=== PATIENT | female | born 1945 | race Caucasian/White ===

== ENCOUNTER 2017-10-28 17:37 | Emergency (ER) | payer OTHER ==
[2017-10-28] MEDS ORDERED: HYDROCODONE/CHLORPHEN 5 ML/OSYR ONE (18:39)
[2017-10-28] MEDS ORDERED: IPRATROPIUM BROM 0.5MG/2.5ML ONE (18:39)
[2017-10-28] MEDS ORDERED: ALBUTEROL 2.5 MG/3 ML NEB SOL ONE (18:39)
[2017-10-28] MEDS ORDERED: predniSONE 20 MG TAB ONE (18:40)
--- NOTE | 2017-10-28 19:25 | RAD REPORT ---
EXAM DESCRIPTION: RAD - Chest Pa And Lat (2 Views) - 10/28/2017 6:32 pm CLINICAL HISTORY: Productive cough COMPARISON: 02/26/2014 FINDINGS: The lungs are clear. The heart is normal in size. No displaced fractures. Prominent tortuo sity of the thoracic aorta noted. IMPRESSION: No acute or concerning finding suspected.
--- NOTE | 2017-10-28 19:48 | EDPHYS ---
Physician Documentation [facility] Name: Marizol Huizar Age: 72 yrs Sex: Female : 1945 Arrival Date: 10/28/2017 Time: 17:38 Bed 17 Private MD: Milo Cho R ED Physician Tom Camargo HPI: 10/28 19:00 This 72 yrs old Female presents to ER via Ambulatory with complaints of pm1 Cough, Shortness Of Breath. 23:38 The patient or guardian reports cough, with productive sputum, that is white. Onset: pm1 The symptoms/episode began/occurred 2 week(s) ago. Severity of symptoms: in the emergency department the symptoms are actually worse. Modifying factors: The symptoms are alleviated by nothing, the symptoms are aggravated by nothing. Associated signs and symptoms: Pertinent negatives: chest pain, fever, nausea, sore throat, vomiting. The patient has experienced similar episodes in the past, a few times. The patient has been recently seen by a physician: the patient's primary care provider, with similar presenting complaints, and apparently given a diagnosis of URI. cough suppressant prescribed. Patient requesting chest xray. Patient concerned that she might have pneumonia. Historical: - Allergies: 17:58 No Known Allergies; hb - Home Meds: 17:58 Metformin Oral [Active]; hb - PMHx: 17:58 Diabetes - NIDDM; hb - PSHx: 17:58 Hysterectomy; hb - Immunization history:: Adult Immunizations up to date. - Social history:: Smoking status: Patient/guardian denies using tobacco. ROS: 23:38 Constitutional: Negative for fever, chills, and weight loss, Eyes: Negative for injury, pm1 pain, redness, and discharge, ENT: Negative for injury, pain, and discharge, Neck: Negative for injury, pain, and swelling, Cardiovascular: Negative for chest pain, palpitations, and edema. 23:38 Abdomen/GI: Negative for abdominal pain, nausea, vomiting, diarrhea, and constipation, Back: Negative for injury and pain, : Negative for injury, bleeding, discharge, and swelling, MS/Extremity: Negative for injury and deformity, Skin: Negative for injury, rash, and discoloration, Neuro: Negative for headache, weakness, numbness, tingling, and seizure. 23:38 Respiratory: Positive for cough, with white sputum, shortness of breath, Negative for wheezing. Exam: 23:38 Constitutional: This is a well developed, well nourished patient who is awake, alert, pm1 and in no acute distress. Head/Face: Normocephalic, atraumatic. Eyes: Pupils equal round and reactive to light, extra-ocular motions intact. Lids and lashes normal. Conjunctiva and sclera are non-icteric and not injected. Cornea within normal limits. Periorbital areas with no swelling, redness, or edema. ENT: Nares patent. No nasal discharge, no septal abnormalities noted. Tympanic membranes are normal and external auditory canals are clear. Oropharynx with no redness, swelling, or masses, exudates, or evidence of obstruction, uvula midline. Mucous membranes moist. Neck: Trachea midline, no thyromegaly or masses palpated, and no cervical lymphadenopathy. Supple, full range of motion without nuchal rigidity, or vertebral point tenderness. No Meningismus. Chest/axilla: Normal chest wall appearance and motion. Nontender with no deformity. No lesions are appreciated. Cardiovascular: Regular rate and rhythm with a normal S1 and S2. No gallops, murmurs, or rubs. Normal PMI, no JVD. No pulse deficits. 23:38 Abdomen/GI: Soft, non-tender, with normal bowel sounds. No distension or tympany. No guarding or rebound. No evidence of tenderness throughout. Back: No spinal tenderness. No costovertebral tenderness. Full range of motion. Skin: Warm, dry with normal turgor. Normal color with no rashes, no lesions, and no evidence of cellulitis. MS/ Extremity: Pulses equal, no cyanosis. Neurovascular intact. Full, normal range of motion. 23:38 Respiratory: the patient does not display signs of respiratory distress, Respirations: normal, Breath sounds: rhonchi, are scattered. 23:38 Neuro: Orientation: is normal, Motor: moves all fours, strength is normal, strength is 5/5 in all extremities. Vital Signs: 17:58 BP 154 / 67; Pulse 65; Resp 20; Temp 98.5; Pulse Ox 100% on R/A; Weight 70.31 kg; hb Height 5 ft. 4 in. (162.56 cm); Pain 0/10; 19:00 BP 118 / 47; Pulse 67; Resp 14; Pulse Ox 97% ; bp 17:58 Body Mass Index 26.61 (70.31 kg, 162.56 cm) hb MDM: 18:05 Patient medically screened. pm1 19:45 Data reviewed: vital signs. Data interpreted: Pulse oximetry: on room air is 97 %. pm1 Interpretation: normal. Counseling: I had a detailed discussion with the patient and/or guardian regarding: the historical points, exam findings, and any diagnostic results supporting the discharge/admit diagnosis, radiology results, the need for outpatient follow up, to return to the emergency department if symptoms worsen or persist or if there are any questions or concerns that arise at home. 10/28 18:15 Order name: Chest Pa And Lat (2 Views) XRAY; Complete Time: 19:45 pm1 Administered Medications: 18:15 Drug: Tussionex Pennkinetic ER 5 ml Route: PO; hj 18:50 Follow up: Response: No adverse reaction hj 18:15 Drug: Albuterol - atroVENT (3:1) (2.5 mg - 0.5 mg) 3 ml Route: Nebulizer; hj 18:50 Follow up: Response: No adverse reaction; Wheezing diminished hj 18:15 Drug: predniSONE 60 mg Route: PO; hj 18:50 Follow up: Response: No adverse reaction hj Disposition: 10/29 07:05 Co-signature as Attending Physician, Tom Camargo MD. rn Disposition: 10/28/17 19:47 Discharged to Home. Impression: Bronchitis, not specified as acute or chronic. - Condition is Stable. - Discharge Instructions: Acute Bronchitis, How to Use an Inhaler. - Prescriptions for Medrol (David) 4 mg Oral Tablets, Dose Pack - take 1 tablet by ORAL route as directed - follow package instructions; 1 packet. Albuterol Sulfate 90 mcg/actuation - inhale 1-2 puff by INHALATION route every 4-6 hours; 1 Inhaler. Guaifenesin AC 10- 100 mg/5 mL Oral Liquid - take 10 milliliter by ORAL route every 4 hours As needed; 240 milliliter. - Medication Reconciliation Form, Thank You Letter, Antibiotic Education form. - Follow up: Emergency Department; When: As needed; Reason: Worsening of condition. Follow up: Milo Cho MD; When: 2 - 3 days; Reason: Recheck today's complaints, Continuance of care, Re-evaluation by your physician. - Problem is new. - Symptoms have improved. Signatures: Dispatcher [employer] Tom Khan MD MD rn Joaquin, Henry RN Gumaro Wilkinson, WASHROOM CLEANER WASHROOM CLEANER pm1 Marcela Gaston RN RN hb Peltier, Brian RN RN bp
--- NOTE | 2017-10-28 19:48 | ER ---
Nurse's Notes [facility] Name: Marizol Huizar Age: 72 yrs Sex: Female : 1945 Arrival Date: 10/28/2017 Time: 17:38 Bed 17 Private MD: Milo Cho R Diagnosis: Bronchitis, not specified as acute or chronic Presentation: 10/28 17:54 Presenting complaint: Patient states: Persistent productive cough with clear sputum, hb SOB, and pain with cough x 2 weeks. Denies fever/body aches/pain. Recently seen by PCP for same s/s, given codeine cough syrup, out of medication. Transition of care: patient was not received from another setting of care. Onset of symptoms is unknown. Care prior to arrival: None. 17:54 Method Of Arrival: Ambulatory hb 17:54 Acuity: KHANH 3 hb Triage Assessment: 17:58 General: Appears in no apparent distress. uncomfortable, Behavior is calm, cooperative, hj appropriate for age. Respiratory: Reports shortness of breath cough that is Onset: The symptoms/episode began/occurred the patient has mild shortness of breath. Historical: - Allergies: 17:58 No Known Allergies; hb - Home Meds: 17:58 Metformin Oral [Active]; hb - PMHx: 17:58 Diabetes - NIDDM; hb - PSHx: 17:58 Hysterectomy; hb - Immunization history:: Adult Immunizations up to date. - Social history:: Smoking status: Patient/guardian denies using tobacco. Screenin:58 Abuse screen: Denies threats or abuse. Denies injuries from another. Nutritional hj screening: No deficits noted. Tuberculosis screening: No symptoms or risk factors identified. Fall Risk None identified. Assessment: 18:12 Pain: Denies pain. Cardiovascular: Rhythm is. Respiratory: Airway is patent Respiratory hj effort is even, unlabored, Respiratory pattern is regular, symmetrical, 18:12 General: Appears in no apparent distress. uncomfortable, Behavior is calm, cooperative, hj appropriate for age. Neuro: Level of Consciousness is awake, alert, obeys commands, Oriented to person, place, time, situation, Appropriate for age. GI: No signs and/or symptoms were reported involving the gastrointestinal system. : No signs and/or symptoms were reported regarding the genitourinary system. EENT: No signs and/or symptoms were reported regarding the EENT system. Derm: No signs and/or symptoms reported regarding the dermatologic system. Musculoskeletal: No signs and/or symptoms reported regarding the musculoskeletal system. 19:00 Reassessment: RECD REPORT FROM PILO HENAO. 72YO WF P/W COUGH/SOB. ALL CURRENT ORDERS bp COMPLETED, DISPO PENDING. 19:58 Reassessment: PT D/C HOME AMBULATORY WITH FAMILY, DX WITH BRONCHITIS. bp Vital Signs: 17:58 BP 154 / 67; Pulse 65; Resp 20; Temp 98.5; Pulse Ox 100% on R/A; Weight 70.31 kg; hb Height 5 ft. 4 in. (162.56 cm); Pain 0/10; 19:00 BP 118 / 47; Pulse 67; Resp 14; Pulse Ox 97% ; bp 17:58 Body Mass Index 26.61 (70.31 kg, 162.56 cm) hb ED Course: 17:38 Patient arrived in ED. as 17:38 Milo Cho MD is Private Physician. as 17:56 Triage completed. hb 17:58 Arm band placed on left wrist. hb 17:58 Patient has correct armband on for positive identification. Placed in gown. Bed in low hj position. Call light in reach. Side rails up X 1. 18:05 Gumaro Cortes NP is PHCP. pm1 18:05 Tom Camargo MD is Attending Physician. pm1 18:12 Pilo Smalls, EARLENE is Primary Nurse. hj 18:31 Chest Pa And Lat (2 Views) XRAY In Process Unspecified. EDMS 19:32 No provider procedures requiring assistance completed. Patient did not have IV access bp during this emergency room visit. 19:46 Milo Cho MD is Referral Physician. pm1 Administered Medications: 18:15 Drug: Tussionex Pennkinetic ER 5 ml Route: PO; hj 18:50 Follow up: Response: No adverse reaction hj 18:15 Drug: Albuterol - atroVENT (3:1) (2.5 mg - 0.5 mg) 3 ml Route: Nebulizer; hj 18:50 Follow up: Response: No adverse reaction; Wheezing diminished hj 18:15 Drug: predniSONE 60 mg Route: PO; hj 18:50 Follow up: Response: No adverse reaction hj Outcome: 19:47 Discharge ordered by . pm1 19:59 Discharged to home ambulatory, with family. bp 19:59 Condition: stable 19:59 Discharge instructions given to patient, Instructed on discharge instructions, follow up and referral plans. medication usage, Demonstrated understanding of instructions, follow-up care, medications, Prescriptions given X 3. 20:00 Patient left the ED. bp Signatures: Dispatcher [employer] EDMS Melinda Mcmahon Henry, RN RN hj Gumaro Cortes, KENA PHOTOGRAPHIC SPECIALIST pm1 Marcela Gaston RN RN hb Gucci Stanton RN RN bp Corrections: (The following items were deleted from the chart) 17:57 17:54 Presenting complaint: Patient states: Persistent productive cough with clear hb sputum and pain with cough x 2 weeks. Denies fever/body aches/pain. Recently seen by PCP for same s/s, given codeine cough syrup, out of medication hb
[2017-10-28 20:05] VITALS: TEMP 98.5
[2017-10-28 20:06] VITALS: BP 118/47; O2SAT 97
== END 2017-10-28 20:00 | disposition home or self-care (01) ==
LOC: ER 17:37
DX: J40 Bronchitis, not specified as acute or chronic (principal); E11.9 Type 2 diabetes mellitus without complications
CPT/HCPCS: 71046; 94640; 99284; J7512

== ENCOUNTER 2020-08-08 14:42 | Emergency (ER) | payer OTHER ==
--- OUTSIDE RECORDS SUMMARY | 2020-08-08 14:44 | XMS REPORT | Clinical Summary ---
:1945 Author Organization [facility] Address [address] [place] [address] Care Team Providers Name Role Phone Asked, Pcp Primary Care Provider Unavailable Allergies No Known Active Allergies Medications Medication Sig Dispensed Refills Start Date End Date Status lisinopriL 10 mg tablet 1 Take by mouth 0 Active tablet, daily. hydroCHLOROthiazide 25 MG tablet 0.5 tablet metFORMIN (GLUCOPHAGE) 500 Take 500 mg by 0 Active mg tablet mouth 2 (two) times a day with meals. escitalopram (LEXAPRO) 10 Take 10 mg by 0 Active MG tablet mouth daily. ascorbic acid (VITAMIN C Take by mouth 0 Active ORAL) daily. B complex-vitamin C-folic Take 1 tablet 0 Active uxwj-wldlpx-ufkx (FOLBEE by mouth PLUS 5 MG WITH COPPER AND daily. ZINC) 5-1.5-25 mg tablet per tablet nutritional Take by mouth 0 Acti ve supplement-fiber liquid 2 (two) times a day. Juice Plus UNABLE TO FIND Take by mouth 0 A ctive daily. Vitamin D3 Active Problems Not on file Encounters Date Type Specialty Care Team Description 03/31/2020 Hospital Encounter Radiology Fernando Avery B reast density MD 03/31/2020 Travel 03/24/2020 Hospital Encounter Radiology Fernando Avery, O ther specified MD disorders of br east 03/24/2020 Hospital Encounter Radiology Fernando Avery, O ther specified MD disorders of br east 03/24/2020 Transcribe Orders Access Fernando Avery Br east density (Primary MD Dx) 03/24/2020 Travel 02/11/2020 Travel 02/11/2020 Transcribe Orders Access Fernando Avery, Ot her specified MD disorders of br east (Primary Dx) 09/27/2019 Hospital Encounter Radiology Fernando Avery MD 09/27/2019 Hospital Encounter Radiology Fernando Avery MD 09/27/2019 Hospital Encounter Radiology Fernando Avery MD 09/27/2019 Hospital Encounter Radiology Fernando Avery MD 09/27/2019 Hospital Encounter Radiology Fernando Avery, U nspecified lump in the MD left breast, un specified quadrant 09/27/2019 Hospital Encounter Radiology Fernando Avery, U nspecified lump in the MD left breast, un specified quadrant 09/23/2019 Transcribe Orders Access Fernando Avery, Un specified lump in the MD left breast, un specified quadrant (Prima ry Dx) after 08/08/2019 Medical History Medical History Date Comments Diabetes mellitus (HCC) Social History Tobacco Use Types Packs/Day Years Used Date Never Assessed Sex Assigned at Date Recorded Not on file Last Filed Vital Signs Vital Sign Reading Time Taken Comments Blood Pressure - - Pulse - - Temperature - - Respiratory Rate - - Oxygen Saturation - - Inhaled Oxygen Concentration - - Weight 71.7 kg (158 lb) 03/31/2020 11:40 AM CDT Height - - Body Mass Index - - Plan of Treatment Health Maintenance Due Date Last Done Comments COVID-19 VACCINE (1 of 2) 1962 COLONOSCOPY SCREENING 1996 SHINGLES VACCINES (#1) 1996 65+ PNEUMOCOCCAL VACCINE (1 of 1 - 2011 PPSV23) INFLUENZA VACCINE 02/22/2020 BREAST CANCER SCREENING 03/24/2022 03/24/2020, 03/24/2020, 09/27/2019, Additional history exists Procedures Procedure Name Priority Date/Time Associated Comments Diagnosis MRI BREAST W WO Routine 03/31/2020 12:22 Breast density Result s for this CONTRAST BILATERAL PM CDT procedure are in the results section. ESTIMATED GFR Routine 03/31/2020 11:40 Results fo r this AM CDT procedure are i n the results section. POC CREATININE Routine 03/31/2020 11:40 Results f or this AM CDT procedure are i n the results section. US BREAST COMPLETE Routine 03/24/2020 11:53 Other specified Re sults for this LEFT AM CDT disorders of breast procedur e are in the results section. MAMMO BREAST Routine 03/24/2020 11:10 Other specified Results for this DIAGNOSTIC AM CDT disorders of breast procedur e are in TOMOSYNTHESIS LEFT the resul ts section. US BREAST COMPLETE Routine 09/27/2019 2:25 Unspecified lump i n Results for this BILATERAL PM SPINNING FRAME [employer] the left breast, procedure a re in unspecified the results quadrant section. MAMMO BREAST Routine 09/27/2019 2:05 Unspecified lump in Resu lts for this DIAGNOSTIC PM [employer]ING [employer] the left breast, procedure a re in TOMOSYNTHESIS unspecified the results BILATERAL quadrant section. after 08/08/2019 Results MRI Breast W Wo Contrast Bilateral (03/31/2020 12:22 PM CDT) Specimen Impressions Performed At There is no suspicous enhancement on MRI to suggest malignancy. [facility] Continued monitoring of the clinical examination is re commended and routine mammography. BI-RADS Category 1: Negative Workstation Name: [id number] Narrative Performed At This result has an attachment that is no t available. FILMS COMPARED: [facility] The present examination has been compare d to a prior outside MR imaging study dated 11/14/2018. BREAST MRI: Prior to administration of intravenous c ontrast media, axial STIR, and axial T1 images of both breasts were obtained. The patient was injected with 7.1 cc's of Gadavist. Dynamic scanning of both breasts was then performed, with four consecutive sequences of axial T1 weighted gradient echo fat saturated images Three dimensional reconstruction using maximal intensity projections and subtracted images were also constructed. There is scattered fibroglandular tissue. There is mild background parenchymal enhancement. There is no evidence of suspicious lesio n or suspicious enhancement in either breast. Visualized portions of the axillae are unremarkable. Procedure Note [facility], Radiology Results Incoming - 03/31/2020 12:45 PM CDT FILMS COMPARED: The present examination has been compare d to a prior outside MR imaging study dated 11/14/2018. BREAST MRI: Prior to administration of intravenous c ontrast media, axial STIR, and axial T1 images of both breasts were obtained. The patient was injected with 7.1 cc's of Gadavist. Dynamic scanning of both breasts was then performed, with four consecutive sequenc es of axial T1 weighted gradient echo fat saturated images Three dimensional reconstruction using maximal intensity projections and subtracted images were also constructed. There is scattered fibroglandular tissue . There is mild background parenchymal enh ancement. There is no evidence of suspicious lesio n or suspicious enhancement in either breast. Visualized portions of the axillae are unremarkable. IMPRESSION: There is no suspicous enhancement on MRI to suggest malignancy. Continued monitoring of the clinical exa mination is recommended and routine mammography. BI-RADS Category 1: Negative Workstation Name: [id number] Performing Organization Address [facility] Phon e Number [facility] [address] [place], [place] [id number] Estimated GFR (03/31/2020 11:40 AM CDT) Estimated GFR 56 (A) mL/min/1.73 MALIK SHINTO Comment: m2 HOSPITAL Catergory Units Interpretation G1 >=90 Normal or high G2 60-89 Mildly decreased G3a 45-59 Mildly to moderately decreas ed G3b 30-44 Moderately to severely decre ased G4 15-29 Severely decreased G5 <15 Kidney failure The eGFR was calculated using the Chronic Kidney Disea se Epidemiology Collaboration (CKD-EPI) equation. Interpretation is based on recommendations of the National Kidney Foundation-Kidney Disease Outcomes Santi lity Initiative (NKF-KDOQI) published in 2014. Specimen Blood Performing Organization Address [facility] Phon e Number [facility] DEPARTMENT OF PATHOLOGY AND [address] [place], [place] [address] [address] [address] POC creatinine (03/31/2020 11:40 AM CDT) POC creatinine 1.0 (H) 0.5 - 0.9 MALIK SHINTO Comment: mg/dl HOSPITAL Special Events Coordinator Name: Maile Solano Device ID: [id number] Specimen Blood Performing Organization Address [facility] Phon e Number [facility] DEPARTMENT OF PATHOLOGY AND [address] [place] [address] [address] [place] Breast Complete Left (03/24/2020 11:53 AM CDT) Specimen Narrative Performed At PROCEDURE: [facility] Left Breast Tomosynthesis Diagnostic [facility] mogram, Left Breast Ultrasound HISTORY: Patient is 74 years old and is seen for diagnostic shmuel luation. The patient has the following family history of breast can cer: sister, at age 65, breast cancer. The patient has no current palp able breast complaints. FILMS COMPARED: The present examination has been compared to prior keeley ging studies dated 11/14/2018, 06/19/2019 and 09/27/2019. MAMMOGRAM FINDINGS: There are scattered areas of fibroglandu lar densities. Finding 1: There is global asymmetry with associated skin retraction in the upper outer quadrant of the left breast. Finding 2: There is a focal asymmetry in the upper i nner quadrant of the left breast. ULTRASOUND FINDINGS: Unilateral real-time whole breast sonography of the le ft breast included all four quadrants and the retroareolar regions under close supervision by the radiologist. There is no evidence of any solid mass or cystic cara s of concern. There is a somewhat rounded dense area seen on ultraso und in the upper outer quadrant but without a distinct mass appearance. No abnormal vascularity noted. IMPRESSION: Finding 1: Global asymmetry in the upper outer quadr ant of the left breast is probably benign. Follow-up in 6 months is recommended. Finding 2: Focal asymmetry in the upper inner quadra nt of the left breast is probably benign. Follow-up in 6 months is recommended. Findings and recommendations [facility] of the examination. Also because of the family history of breast cancer in sister, recommend breast MRI. BI-RADS Category 3: Probably Benign Finding(s) Workstation Name: [id number] A NEGATIVE X-RAY REPORT SHOULD NOT DELAY BIOPSY IF A D OMINANT OR CLINICALLY SUSPICIOUS MASS IS PRESENT. NOT ALL CANCERS ARE IDENTIFIED BY X-RAY. Procedure Note Interface, Radiology Results Incoming - 03/24/2020 1:11 PM CDT PROCEDURE: Left Breast Tomosynthesis Diagnostic [facility] mogram, Left Breast Ultrasound HISTORY: Patient is 74 years old and is seen for diagnostic evaluation. The patient has the following family history of breast cancer: sister, at age 65, breast cancer. The patient has no current palpable breast complaints. FILMS COMPARED: The present examination has been compare d to prior imaging studies dated 11/14/2018, 06/19/2019 and 09/27/2019. MAMMOGRAM FINDINGS: There are scattered areas of fibroglandu lar densities. Finding 1: There is global asymmetry wi th associated skin retraction in the upper outer quadrant of the left breast. Finding 2: There is a focal asymmetry i n the upper inner quadrant of the left breast. ULTRASOUND FINDINGS: Unilateral real-time whole breast sonogr aphy of the left breast included all four quadrants and the retroareolar regions under close supervision by the radiologist. There is no evidence of any solid mass o r cystic masses of concern. There is a somewhat rounded dense area seen on ultrasound in the upper outer quadrant but without a distinct mass appearance. No abnormal vascularity noted. IMPRESSION: Finding 1: Global asymmetry in the uppe r outer quadrant of the left breast is probably benign. Follow-up in 6 months is recommended. Finding 2: Focal asymmetry in the upper inner quadrant of the left breast is probably benign. Follow-up in 6 months is recommended. Findings and recommendations were discus sed with the patient at the time of the examination. Also because of the family history of br east cancer in sister, recommend breast MRI. BI-RADS Category 3: Probably Benign Finding(s) Workstation Name: [id number] A NEGATIVE X-RAY REPORT SHOULD NOT DELAY BIOPSY IF A DOMINANT OR CLINICALLY SUSPICIOUS MASS IS PRESENT. NOT ALL CANCERS ARE IDENTIFIED BY X-RAY. Performing Organization Address City/State/ZIP Code Phon e Number [facility] [address] [place] [address] Mammo Breast Diagnostic Tomosynthesis Left (03/24/2020 11:10 AM CDT) Specimen Narrative Performed At PROCEDURE: [employer] Left Breast Tomosynthesis Diagnostic [facility] mogram, Left Breast Ultrasound HISTORY: Patient is 74 years old and is seen for diagnostic shmuel luation. The patient has the following family history of breast can cer: sister, at age 65, breast cancer. The patient has no current palp able breast complaints. FILMS COMPARED: The present examination has been compared to prior keeley ging studies dated 11/14/2018, 06/19/2019 and 09/27/2019. MAMMOGRAM FINDINGS: There are scattered areas of fibroglandu lar densities. Finding 1: There is global asymmetry with associated skin retraction in the upper outer quadrant of the left breast. Finding 2: There is a focal asymmetry in the upper i nner quadrant of the left breast. ULTRASOUND FINDINGS: Unilateral real-time whole breast sonography of the le ft breast included all four quadrants and the retroareolar regions under close supervision by the radiologist. There is no evidence of any solid mass or cystic cara s of concern. There is a somewhat rounded dense area seen on ultraso und in the upper outer quadrant but without a distinct mass appearance. No abnormal vascularity noted. IMPRESSION: Finding 1: Global asymmetry in the upper outer quadr ant of the left breast is probably benign. Follow-up in 6 months is recommended. Finding 2: Focal asymmetry in the upper inner quadra nt of the left breast is probably benign. Follow-up in 6 months is recommended. Findings and recommendations were discussed with the p atient at the time of the examination. Also because of the family history of breast cancer in sister, recommend breast MRI. BI-RADS Category 3: Probably Benign Finding(s) Workstation Name: [id number] A NEGATIVE X-RAY REPORT SHOULD NOT DELAY BIOPSY IF A D OMINANT OR CLINICALLY SUSPICIOUS MASS IS PRESENT. NOT ALL CANCERS ARE IDENTIFIED BY X-RAY. Procedure Note Hm Interface, Radiology Results Incoming - 03/24/2020 1:11 PM CDT PROCEDURE: Left Breast Tomosynthesis Diagnostic [facility] mogram, Left Breast Ultrasound HISTORY: Patient is 74 years old and is seen for diagnostic evaluation. The patient has the following family history of breast cancer: sister, at age 65, breast cancer. The patient has no current palpable breast complaints. FILMS COMPARED: The present examination has been compare d to prior imaging studies dated 11/14/2018, 06/19/2019 and 09/27/2019. MAMMOGRAM FINDINGS: There are scattered areas of fibroglandu lar densities. Finding 1: There is global asymmetry wi th associated skin retraction in the upper outer quadrant of the left breast. Finding 2: There is a focal asymmetry i n the upper inner quadrant of the left breast. ULTRASOUND FINDINGS: Unilateral real-time whole breast sonogr aphy of the left breast included all four quadrants and the retroareolar regions under close supervision by the radiologist. There is no evidence of any solid mass o r cystic masses of concern. There is a somewhat rounded dense area seen on ultrasound in the upper outer quadrant but without a distinct mass appearance. No abnormal vascularity noted. IMPRESSION: Finding 1: Global asymmetry in the uppe r outer quadrant of the left breast is probably benign. Follow-up in 6 months is recommended. Finding 2: Focal asymmetry in the upper inner quadrant of the left breast is probably benign. Follow-up in 6 months is recommended. Findings and recommendations were discus sed with the patient at the time of the examination. Also because of the family history of br east cancer in sister, recommend breast MRI. BI-RADS Category 3: Probably Benign Finding(s) Workstation Name: [id number] A NEGATIVE X-RAY REPORT SHOULD NOT DELAY BIOPSY IF A DOMINANT OR CLINICALLY SUSPICIOUS MASS IS PRESENT. NOT ALL CANCERS ARE IDENTIFIED BY X-RAY. Performing Organization Address City/State/ZIP Code Phon e Number [facility] [address] [place] [address] US Breast Complete Bilateral (09/27/2019 2:25 PM SPINNING [employer]) Specimen Narrative Performed At PROCEDURE: MAMMO BREAST DIAGNOSTIC TOMOSYNTHESIS ROSHAN WILEY, US BREAST [facility] COMPLETE BILATERAL 09/27/2019 12:45 PM This patient's mammogram was interpreted with the assi stance of computer-aided detection (CAD). CLINICAL HISTORY: 74 -year-old female referred for b ilateral diagnostic mammogram. Patient has a history of a proba shelby benign asymmetry within the upper inner left breast. Family h istory of breast carcinoma diagnosed in patient's sister. Patient also had a recent MRI which demonstrated no associated enha ncement within the questioned area of focal asymmetry. COMPARISON: Outside mammograms dated 06/19/2019, 09/21. Outside breast MRI dated 11/14/2018. BREAST DENSITY: There are scattered ar eas of fibroglandular density. DIGITAL DIAGNOSTIC MAMMOGRAPHY: There are no dominant masses, suspicious microcalcific ations or unexplained architectural distortion to suggest malign mick in either breast. Stable appearance of asymmetric breast tissue within the upper outer left breast. Stable appearance of probably benign focal asymmetry within the upper inner left margo ast at mid depth, approximately 5 cm from the nipple. BREAST ULTRASOUND: Complete bilateral breast sonogram, to include scannin g of all 4 quadrants and the retroareolar/subareolar region, was performed by the technologist with close supervision by t mariela radiologist. Sonographic evaluation of both breasts demonstrates no rmal glandular tissue within all 4 quadrants and retroareolar positio ns. No suspicious finding within either breast IMPRESSION: BI-RADS Category 3-Probably Benign. 1.Stable probably benign focal asymmetry within the up per inner left breast, likely reflecting a patch of fib roglandular breast tissue. 2.No mammographic or sonographic evidence for malignan cy within either breast. RECOMMENDATION: Follow-up left diagnostic mammogram with left breast u ltrasound is recommended to ensure stability of probably benign lef t breast focal asymmetry. Ongoing management is per Dr. Avery. Findings and recommendations were discussed with the p atient at the conclusion of this examination. All ques tions were answered. This facility is accredited by [employer] for Mammography. A negative x-ray report should not delay biopsy if a d ominant or clinically suspicious mass is present. Not all cancers are identified by x-ray. Procedure Note Hm Interface, Radiology Results Incoming - 09/27/2019 3:07 PM [employer]AME [employer] PROCEDURE: MAMMO BREAST DIAGNOSTIC TOMOSYNTHESIS BILATERAL, US BREAST COMPLETE BILATERAL 09/27/2019 12:45 PM This patient's mammogram was interpreted with the assistance of computer-aided detection (CAD). CLINICAL HISTORY: 74 -year-old female r eferred for bilateral diagnostic mammogram. Patient has a history of a probably benign asymmetry within the upper inner left breast. Family history of breast carcinoma diagnosed in patient's sister. Patient also had a recent MRI which demonstrated no a ssociated enhancement within the questioned area of focal asymmetry. COMPARISON: Outside mammograms dated , 10/09/2018. Outside breast MRI dated 11/14/2018. BREAST DENSITY: There are scattered are as of fibroglandular density. DIGITAL DIAGNOSTIC MAMMOGRAPHY: There are no dominant masses, suspicious microcalcifications or unexplained architectural distortion to suggest malignancy in either breast. Stable appearance of asymmetric breast tissue within the upper outer left breast. Stable appearance of probably benign focal asymmetry within the upper inner left breast at mid depth, approximately 5 cm from the nipple. BREAST ULTRASOUND: Complete bilateral breast sonogram, to i nclude scanning of all 4 quadrants and the retroareolar/subareolar region, was performed by the technologist with close supervision by the radiologist. Sonographic evaluation of both breasts d emonstrates normal glandular tissue within all 4 quadrants and retroareolar positions. No suspicious finding within either breast IMPRESSION: BI-RADS Category 3-Probably Benign. 1.Stable probably benign focal asymmetry within the upper inner left breast, likely reflecting a patch of fibroglandular breast tissue. 2.No mammographic or sonographic evidenc e for malignancy within either breast. RECOMMENDATION: Follow-up left diagnostic mammogram with left breast ultrasound is recommended to ensure stability of probably benign left breast focal asymmetry. Ongoing management is per Dr. Avery. Findings and recommendations were discus sed with the patient at the conclusion of this examination. All questions were answered. This facility is accredited by The [facility] [employer] for Mammography. A negative x-ray report should not delay biopsy if a dominant or clinically suspicious mass is present. Not all cancers are identified by x-ray. Performing Organization Address City/State/ZIP Code Phon e Number [facility] [address] [place] [address] Mammo Breast Diagnostic Tomosynthesis Bilateral (09/27/2019 2:05 PM SPINNING FRAME FIXER) Specimen Narrative Performed At PROCEDURE: MAMMO BREAST DIAGNOSTIC TOMOSYNTHESIS BILAT MAXL, US BREAST [facility] COMPLETE BILATERAL 09/27/2019 12:45 PM This patient's mammogram was interpreted with the assi stance of computer-aided detection (CAD). CLINICAL HISTORY: 74 -year-old female referred for b ilateral diagnostic mammogram. Patient has a history of a proba shelby benign asymmetry within the upper inner left breast. Family h istory of breast carcinoma diagnosed in patient's sister. Patient also had a recent MRI which demonstrated no associated enha ncement within the questioned area of focal asymmetry. COMPARISON: Outside mammograms dated 06/19/2019, 09/21. Outside breast MRI dated 11/14/2018. BREAST DENSITY: There are scattered ar eas of fibroglandular density. DIGITAL DIAGNOSTIC MAMMOGRAPHY: There are no dominant masses, suspicious microcalcific ations or unexplained architectural distortion to suggest malign mick in either breast. Stable appearance of asymmetric breast tissue within the upper outer left breast. Stable appearance of probably benign focal asymmetry within the upper inner left margo ast at mid depth, approximately 5 cm from the nipple. BREAST ULTRASOUND: Complete bilateral breast sonogram, to include scannin g of all 4 quadrants and the retroareolar/subareolar region, was performed by the technologist with close supervision by laurita sierra radiologist. Sonographic evaluation of both breasts demonstrates no rmal glandular tissue within all 4 quadrants and retroareolar positio ns. No suspicious finding within either breast IMPRESSION: BI-RADS Category 3-Probably Benign. 1.Stable probably benign focal asymmetry within the up per inner left breast, likely reflecting a patch of fib roglandular breast tissue. 2.No mammographic or sonographic evidence for malignan cy within either breast. RECOMMENDATION: Follow-up left diagnostic mammogram with left breast u ltrasound is recommended to ensure stability of probably benign lef t breast focal asymmetry. Ongoing management is per Dr. Avery. Findings and recommendations were discussed with the p atient at the conclusion of this examination. All ques tions were answered. This facility is accredited by [employer] for Mammography. A negative x-ray report should not delay biopsy if a d ominant or clinically suspicious mass is present. Not all cancers are identified by x-ray. Procedure Note Hm Interface, Radiology Results Incoming - 09/27/2019 3:07 PM SPINNING FRAME [employer]ER PROCEDURE: MAMMO BREAST DIAGNOSTIC TOMOSYNTHESIS BILATERAL, US BREAST COMPLETE BILATERAL 09/27/2019 12:45 PM This patient's mammogram was interpreted with the assistance of computer-aided detection (CAD). CLINICAL HISTORY: 74 -year-old female r eferred for bilateral diagnostic mammogram. Patient has a history of a probably benign asymmetry within the upper inner left breast. Family history of breast carcinoma diagnosed in patient's sister. Patient also had a recent MRI which demonstrated no a ssociated enhancement within the questioned area of focal asymmetry. COMPARISON: Outside mammograms dated , 10/09/2018. Outside breast MRI dated 11/14/2018. BREAST DENSITY: There are scattered are as of fibroglandular density. DIGITAL DIAGNOSTIC MAMMOGRAPHY: There are no dominant masses, suspicious microcalcifications or unexplained architectural distortion to suggest malignancy in either breast. Stable appearance of asymmetric breast tissue within the upper outer left breast. Stable appearance of probably benign focal asymmetry within the upper inner left breast at mid depth, approximately 5 cm from the nipple. BREAST ULTRASOUND: Complete bilateral breast sonogram, to i nclude scanning of all 4 quadrants and the retroareolar/subareolar region, was performed by the technologist with close supervision by the radiologist. Sonographic evaluation of both breasts d emonstrates normal glandular tissue within all 4 quadrants and retroareolar positions. No suspicious finding within either breast IMPRESSION: BI-RADS Category 3-Probably Benign. 1.Stable probably benign focal asymmetry within the upper inner left breast, likely reflecting a patch of fibroglandular breast tissue. 2.No mammographic or sonographic evidenc e for malignancy within either breast. RECOMMENDATION: Follow-up left diagnostic mammogram with left breast ultrasound is recommended to ensure stability of probably benign left breast focal asymmetry. Ongoing management is per Dr. Avery. Findings and recommendations were discus sed with the patient at the conclusion of this examination. All questions were answered. This facility is accredited by [employer] [facility] [employer] for Mammography. A negative x-ray report should not delay biopsy if a dominant or clinically suspicious mass is present. Not all cancers are identified by x-ray. Performing Organization Address City/State/ZIP Code Phon e Number [facility] [id number] 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
--- OUTSIDE RECORDS SUMMARY | 2020-08-08 14:45 | XMS REPORT | Continuity of Care Document ---
:1945 Author Organization [facility] t Address [address] [place] [address] [address]. Duarte [address] [place] [address] Care Team Providers Name Role Phone Asked, Pcp Primary Care Physician Unavailable Rima LOW, P. Attending Clinician QUENTIN Attending Clinician Unavailable QUENTIN Admitting Clinician Unavailable Payers Payer Name Policy Type Policy Effective Date Expiration Date Sour ce Number MEDICAREMEDICARE PART [id number] 2011 Slim Culp AND 00:00:00 [employer] [id number]- [place] [id number] 2019 Jennifer mckeon OF 00:00:00 Sabianism [id number] 0-PresentCommercial Problems This patient has no known problems. Allergies, Adverse Reactions, Alerts Allergy Allergy Status Severity Reaction(s) Onset Inactive Treating Comm ents Source Name Type Date Date Clinician No Known DA Active U 2019-07 RITA Pace 0- s 00:00: [address] Social History Social Habit Start Date Stop Date Quantity Comments Source Sex Assigned At Jennifer Ivy Medications Ordered Filled Start Stop Current Ordering Indication Dosage Frequency Signature Comments Components Source Medication Medication Date Date Medication? Clinician (SIG) Name Name lisinopriL Yes QD Take by [place] 10 mg 03-31 mouth Methodi tablet 1 12:15: daily. st tablet, 34 hydroCHLORO thiazide 25 MG tablet 0.5 tablet metFORMIN 2020-0 Yes 500mg Q.5D Take 500 Jennifer ston (GLUCOPHAGE 9-08 mg by Methodi ) 500 mg 12:15: mouth 2 st tablet 34 (two) times a day with meals. escitalopra 2020-0 Yes 10mg QD Take 10 mg Lavelle m (LEXAPRO) 03-31 by mouth Meth rj 10 MG 12:15: daily. st tablet 34 ascorbic 2020-0 Yes QD Take by Chris n acid 03-31 mouth Methodi (VITAMIN C 12:15: daily. st ORAL) 34 B 2020-0 Yes 1{tbl} QD Take 1 Valderrama complex-vit 03-31 tablet by Met cayla adams 12:15: mouth st C-folic 34 daily. acid-copper -zinc (FOLBEE PLUS 5 MG WITH COPPER AND ZINC) 5-1.5-25 mg tablet per tablet nutritional 2020-0 Yes Q.5D Take by Jennifer stephanien supplement- 03-31 mouth 2 Metho di fiber 12:15: (two) st liquid 34 times a day. Juice Plus UNABLE TO 2020-0 Yes QD Take by Catrer on FIND 03-31 mouth Methodi 12:15: daily. st 34 Vitamin D3 Vital Signs Vital Name Observation Time Observation Value Comments Source Body weight 2020-03-31 11:40:00 71.668 kg Lavelle Ivy Procedures Procedure Date / Time Performed Performing Clinician [facility] e MRI BREAST W WO CONTRAST 2020-03-31 12:22:02 Wil Avery BILATERAL POC CREATININE 2020-03-31 11:40:00 Wil Avery ESTIMATED GFR 2020-03-31 11:40:00 Wil Avery US BREAST COMPLETE LEFT 2020-03-24 11:53:42 Wil Avery MAMMO BREAST DIAGNOSTIC 2020-03-24 11:10:59 Wil Avery TOMOSYNTHESIS LEFT US BREAST COMPLETE 2019-09-27 14:25:08 Wil Averyist BILATERAL MAMMO BREAST DIAGNOSTIC 2019-09-27 14:05:38 Wil Avery TOMOSYNTHESIS BILATERAL Plan of Care Planned Activity Planned Date Details Comments Source Future Scheduled 2022-03-24 BREAST CANCER [facility] Test 00:00:00 SCREENING [code = BREAST CANCER SCREENING] Future Scheduled 2020-02-22 INFLUENZA VACCINE [place] [facility] Test 00:00:00 [code = INFLUENZA VACCINE] Future Scheduled 2011 65+ PNEUMOCOCCAL [facility] Test 00:00:00 VACCINE (1 of 1 - PPSV23) [code = 65+ PNEUMOCOCCAL VACCINE (1 of 1 - PPSV23)] Future Scheduled 1996 COLONOSCOPY SCREENING [facility] Test 00:00:00 [code = COLONOSCOPY SCREENING] Future Scheduled 1996 SHINGLES VACCINES (#1) [place] [facility] Test 00:00:00 [code = SHINGLES VACCINES (#1)] Future Scheduled 1962 COVID-19 VACCINE (1 of [place] [facility] Test 00:00:00 2) [code = COVID-19 VACCINE (1 of 2)] Encounters Start End Encounter Admission Attending Care Care Encounter Source Date/Time Date/Time Type Type Clinicians Facility Department ID 2020-03-31 2020-03-31 Outpatient [facility] [id number] [place] 00:00:00 00:00:00 WIL 310 Method i 2020-03-24 2020-03-24 Outpatient [facility] [id number] [place] 00:00:00 00:00:00 WIL [address] 2020-03-24 2020-03-24 Outpatient [facility] [id number] [place] 00:00:00 00:00:00 WIL [address] 2019-09-27 2019-09-27 Outpatient [facility] [id number] [place] 00:00:00 00:00:00 WIL [address] 2019-09-27 2019-09-27 Outpatient [facility] [id number] [place] 00:00:00 00:00:00 WIL [address] 2019-09-27 2019-09-27 Outpatient [facility] [id number] [place] 00:00:00 00:00:00 WIL [address] 2019-09-27 2019-09-27 Outpatient [facility] [id number] [place] 00:00:00 00:00:00 WIL [address] 2019-09-27 2019-09-27 Outpatient [facility] [id number] [place] 00:00:00 00:00:00 WIL 595 Method i 2019-09-27 2019-09-27 Outpatient RIMA [facility] [id number] [place] 00:00:00 00:00:00 WIL Barajas Method i 2019-04-12 2019-05-13 Outpatient Zandra [facility] [id number] [place] 12:29:00 23:59:00 [facility] Results Test Description Test Time Test Comments Results Result Comments Source GLUCOSE BEDSIDE TESTING 2020-05-03 10:53:00 Test Item Value Reference Range Interpretation Comme nts GLUCOSE BEDSIDE TESTING (test code = GLUBED) 165 MG/DL 60-99 H GLUCOSE BEDSIDE [id number] 06:41:00 Test Item Value Reference Range Interpretation Comments GLUCOSE BEDSIDE TESTING (test code 152 MG/DL 60-99 H = GLUBED) BASIC METABOLIC [id number] 06:08:00 Test Item Value Reference Range Interpretation Comments SODIUM (test code = 137 MMOL/L 137-145 N NA) POTASSIUM (test code = 3.9 MMOL/L 3.5-5.1 N K) CHLORIDE (test code = 107 MMOL/L 98-107 N CL) CARBON DIOXIDE (test 24 MMOL/L 22-30 N code = CO2) GLUCOSE (test code = 156 MG/DL 74-106 H GLU) BLOOD UREA NITROGEN 14 MG/DL 7-17 N (test code = BUN) GLOMERULAR FILTRATION > 60 Report ing units: RATE (test code = GFR) ml/mi n/1.73 m2 (Modified MDRD Formula)Referen ce Range: > or = 6 0 ml/min/1.73 m2 CREATININE (test code 0.80 MG/DL 0.52-1.04 N = CREAT) CALCIUM (test code = 8.7 MG/DL 8.4-10.2 N CA) BASIC METABOLIC [id number] 06:07:00 Test Item Value Reference Range Interpretation Comments SODIUM (test code = 137 MMOL/L 137-145 N NA) POTASSIUM (test code = 3.9 MMOL/L 3.5-5.1 N K) CHLORIDE (test code = 107 MMOL/L 98-107 N CL) CARBON DIOXIDE (test 24 MMOL/L 22-30 N code = CO2) GLUCOSE (test code = MG/DL 74-106 GLU) BLOOD UREA NITROGEN MG/DL 7-17 (test code = BUN) GLOMERULAR FILTRATION > 60 Report ing units: RATE (test code = GFR) ml/mi n/1.73 m2 (Modified MDRD Formula)Referen ce Range: > or = 6 0 ml/min/1.73 m2 CREATININE (test code 0.80 MG/DL 0.52-1.04 N = CREAT) CALCIUM (test code = MG/DL 8.7-9.7 CA) BASIC METABOLIC [id number] 06:04:00 Test Item Value Reference Range Interpretation Comments SODIUM (test code = NA) 137 MMOL/L 137-145 N POTASSIUM (test code = K) 3.9 MMOL/L 3.5-5.1 N CHLORIDE (test code = CL) 107 MMOL/L 98-107 N CARBON DIOXIDE (test code = CO2) MMOL/L 22-30 GLUCOSE (test code = GLU) MG/DL 74-106 BLOOD UREA NITROGEN (test code = MG/DL 7-17 BUN) GLOMERULAR FILTRATION RATE (test code = GFR) CREATININE (test code = CREAT) MG/DL 0.52-1.04 CALCIUM (test code = CA) MG/DL 8.7-9.7 CBC W/AUTO [id number] 05:53:00 Test Item Value Reference Range Interpretation Comments WHITE BLOOD CELL (test code = 7.0 K/MM3 3.8-9.8 N WBC) RED BLOOD CELL (test code = 3.67 M/MM3 3.58-4.97 N RBC) HEMOGLOBIN (test code = HGB) 10.8 G/DL 11.2-14.9 L HEMATOCRIT (test code = HCT) 35.2 % 33.2-43.5 N MEAN CELL VOLUME (test code = 96 fL 80.7-99.1 N MCV) MEAN CELL HGB (test code = MCH) 29.4 pg 27.0-34.1 N MEAN CELL HGB CONCETRATION 30.7 % 32.2-35.7 L (test code = MCHC) RED CELL DISTRIBUTION WIDTH 13.3 % 12.1-15.2 N (test code = RDW) PLATELET COUNT (test code = 181 K/MM3 129-368 N PLT) MEAN PLATELET VOLUME (test code 11.7 fl 7.4-10.4 H = MPV) NEUTROPHIL % (test code = NT%) 66.6 % 43-75 N IMMATURE GRANULOCYTE % (test 0.1 % 0.0-2.0 N code = IG%) LYMPHOCYTE % (test code = LY%) 20.5 % 14-44 N MONOCYTE % (test code = MO%) 10.5 % 4-13 N EOSINOPHIL % (test code = EO%) 1.7 % 0-6 N BASOPHIL % (test code = BA%) 0.6 % 0-2 N NUCLEATED RBC % (test code = 0.0 % 0-1.0 N NRBC%) NEUTROPHIL # (test code = NT#) 4.67 K/mm3 2.0-7.6 N IMMATURE GRANULOCYTE # (test 0.01 x10 3/uL 0-0.03 N code = IG#) LYMPHOCYTE # (test code = LY#) 1.44 K/mm3 1.0-3.8 N MONOCYTE # (test code = MO#) 0.74 K/mm3 0.1-0.8 N EOSINOPHIL # (test code = EO#) 0.12 K/mm3 0.0-0.2 N BASOPHIL # (test code = BA#) 0.04 K/mm3 0.0-0.2 N NUCLEATED RBC # (test code = 0.00 K/mm3 0.0-0.1 N NRBC#) GLUCOSE BEDSIDE [id number] 18:38:00 Test Item Value Reference Range Interpretation Comments GLUCOSE BEDSIDE TESTING (test code 187 MG/DL 60-99 H = GLUBED) BASIC METABOLIC [id number] 07:34:00 Test Item Value Reference Range Interpretation Comments SODIUM (test code = 138 MMOL/L 137-145 N NA) POTASSIUM (test code = 4.6 MMOL/L 3.5-5.1 N K) CHLORIDE (test code = 105 MMOL/L 98-107 N CL) CARBON DIOXIDE (test 28 MMOL/L 22-30 N code = CO2) GLUCOSE (test code = 183 MG/DL 74-106 H GLU) BLOOD UREA NITROGEN 21 MG/DL 7-17 H (test code = BUN) GLOMERULAR FILTRATION > 60 Report ing units: RATE (test code = GFR) ml/mi n/1.73 m2 (Modified MDRD Formula)Referen ce Range: > or = 6 0 ml/min/1.73 m2 CREATININE (test code 0.80 MG/DL 0.52-1.04 N = CREAT) CALCIUM (test code = 10.0 MG/DL 8.4-10.2 N CA) Comments to Disc Pad Grinder: NURSE WILL BRING SPECIMEN TO LABIs this a LINE draw? N LIPID PROFILE (CORONARY RISK)2020-05-02 07:34:00 Test Item Value Reference Range Interpretation Comments TRIGLYCERIDES (test 245 MG/DL TRIGLYCE RIDES code = TRIG) REFERENCE RANGE:Normal: < 150 mg/dLBorderline High: 150-199 mg/dLHi gh: 200-499 mg/dLVe ry High: >=500 mg/ dL CHOLESTEROL (test code 180 MG/DL <200 = CHOL) HDL CHOLESTEROL (test 42 MG/DL 40-59 N code = HDL) LIPOPROTEIN LDL (test 109 MG/DL 0-99 H code = LDL) OPTIMAL........ .<100 mg/dLNEAR OPTIMAL/ABOVE OPTIMAL........ .100-12 9 mg/dL BORDERLINE HIGH.........13 0-159 mg/dL HIGH.........16 0-189 mg/dL VERY HIGH...... ...>/= 190 mg/dL Comments to Disc Pad Grinder: NURSE WILL BRING SPECIMEN TO LABIs this a LINE draw? N [id number] 07:34:00 Test Item Value Reference Range Interpretation Comments MAGNESIUM (test code = MAG) 1.6 MG/DL 1.6-2.3 N Comments to Disc Pad Grinder: NURSE WILL BRING SPECIMEN TO LABIs this a LINE draw? N BASIC METABOLIC [id number] 07:23:00 Test Item Value Reference Range Interpretation Comments SODIUM (test code = 138 MMOL/L 137-145 N NA) POTASSIUM (test code = 4.6 MMOL/L 3.5-5.1 N K) CHLORIDE (test code = 105 MMOL/L 98-107 N CL) CARBON DIOXIDE (test 28 MMOL/L 22-30 N code = CO2) GLUCOSE (test code = 183 MG/DL 74-106 H GLU) BLOOD UREA NITROGEN 21 MG/DL 7-17 H (test code = BUN) GLOMERULAR FILTRATION > 60 Report ing units: RATE (test code = GFR) ml/mi n/1.73 m2 (Modified MDRD Formula)Referen ce Range: > or = 6 0 ml/min/1.73 m2 CREATININE (test code 0.80 MG/DL 0.52-1.04 N = CREAT) CALCIUM (test code = 10.0 MG/DL 8.4-10.2 N CA) Comments to Disc Pad Grinder: NURSE WILL BRING SPECIMEN TO LABIs this a LINE draw? N LIPID PROFILE (CORONARY RISK)2020-05-02 07:23:00 Test Item Value Reference Range Interpretation Comments TRIGLYCERIDES (test 245 MG/DL TRIGLYCE RIDES code = TRIG) REFERENCE RANGE:Normal: < 150 mg/dLBorderline High: 150-199 mg/dLHi gh: 200-499 mg/dLVe ry High: >=500 mg/ dL CHOLESTEROL (test code 180 MG/DL <200 = CHOL) HDL CHOLESTEROL (test 42 MG/DL 40-59 N code = HDL) LIPOPROTEIN LDL (test MG/DL 0-99 code = LDL) Comments to Disc Pad Grinder: NURSE WILL BRING SPECIMEN TO LABIs this a LINE draw? N [id number] 07:23:00 Test Item Value Reference Range Interpretation Comments MAGNESIUM (test code = MAG) 1.6 MG/DL 1.6-2.3 N Comments to Disc Pad Grinder: NURSE WILL BRING SPECIMEN TO LABIs this a LINE draw? N BASIC METABOLIC [id number] 07:22:00 Test Item Value Reference Range Interpretation Comments SODIUM (test code = 138 MMOL/L 137-145 N NA) POTASSIUM (test code = 4.6 MMOL/L 3.5-5.1 N K) CHLORIDE (test code = 105 MMOL/L 98-107 N CL) CARBON DIOXIDE (test 28 MMOL/L 22-30 N code = CO2) GLUCOSE (test code = MG/DL 74-106 GLU) BLOOD UREA NITROGEN MG/DL 7-17 (test code = BUN) GLOMERULAR FILTRATION > 60 Report ing units: RATE (test code = GFR) ml/mi n/1.73 m2 (Modified MDRD Formula)Referen ce Range: > or = 6 0 ml/min/1.73 m2 CREATININE (test code 0.80 MG/DL 0.52-1.04 N = CREAT) CALCIUM (test code = MG/DL 8.7-9.7 CA) Comments to Disc Pad Grinder: NURSE WILL BRING SPECIMEN TO LABIs this a LINE draw? N LIPID PROFILE (CORONARY RISK)2020-05-02 07:22:00 Test Item Value Reference Range Interpretation Comments TRIGLYCERIDES (test code = TRIG) MG/DL CHOLESTEROL (test code = CHOL) 180 MG/DL <200 HDL CHOLESTEROL (test code = HDL) MG/DL 40-59 LIPOPROTEIN LDL (test code = LDL) MG/DL 0-99 Comments to Disc Pad Grinder: NURSE WILL BRING SPECIMEN TO LABIs this a LINE draw? N [id number] 07:22:00 Test Item Value Reference Range Interpretation Comments MAGNESIUM (test code = MAG) MG/DL 1.6-2.3 Comments to Disc Pad Grinder: NURSE WILL BRING SPECIMEN TO LABIs this a LINE draw? N BASIC METABOLIC [id number] 07:20:00 Test Item Value Reference Range Interpretation Comments SODIUM (test code = NA) 138 MMOL/L 137-145 N POTASSIUM (test code = K) 4.6 MMOL/L 3.5-5.1 N CHLORIDE (test code = CL) 105 MMOL/L 98-107 N CARBON DIOXIDE (test code = CO2) MMOL/L 22-30 GLUCOSE (test code = GLU) MG/DL 74-106 BLOOD UREA NITROGEN (test code = MG/DL 7-17 BUN) GLOMERULAR FILTRATION RATE (test code = GFR) CREATININE (test code = CREAT) MG/DL 0.52-1.04 CALCIUM (test code = CA) MG/DL 8.7-9.7 Comments to Disc Pad Grinder: NURSE WILL BRING SPECIMEN TO LABIs this a LINE draw? N LIPID PROFILE (CORONARY RISK)2020-05-02 07:20:00 Test Item Value Reference Range Interpretation Comments TRIGLYCERIDES (test code = TRIG) MG/DL CHOLESTEROL (test code = CHOL) MG/DL <200 HDL CHOLESTEROL (test code = HDL) MG/DL 40-59 LIPOPROTEIN LDL (test code = LDL) MG/DL 0-99 Comments to Disc Pad Grinder: NURSE WILL BRING SPECIMEN TO LABIs this a LINE draw? N [id number] 07:20:00 Test Item Value Reference Range Interpretation Comments MAGNESIUM (test code = MAG) MG/DL 1.6-2.3 Comments to Disc Pad Grinder: NURSE WILL BRING SPECIMEN TO LABIs this a LINE draw? N BASIC METABOLIC [id number] 07:19:00 Test Item Value Reference Range Interpretation Comments SODIUM (test code = NA) 138 MMOL/L 137-145 N POTASSIUM (test code = K) MMOL/L 3.5-5.1 CHLORIDE (test code = CL) 105 MMOL/L 98-107 N CARBON DIOXIDE (test code = CO2) MMOL/L 22-30 GLUCOSE (test code = GLU) MG/DL 74-106 BLOOD UREA NITROGEN (test code = MG/DL 7-17 BUN) GLOMERULAR FILTRATION RATE (test code = GFR) CREATININE (test code = CREAT) MG/DL 0.52-1.04 CALCIUM (test code = CA) MG/DL 8.7-9.7 Comments to Disc Pad Grinder: NURSE WILL BRING SPECIMEN TO LABIs this a LINE draw? N LIPID PROFILE (CORONARY RISK)2020-05-02 07:19:00 Test Item Value Reference Range Interpretation Comments TRIGLYCERIDES (test code = TRIG) MG/DL CHOLESTEROL (test code = CHOL) MG/DL <200 HDL CHOLESTEROL (test code = HDL) MG/DL 40-59 LIPOPROTEIN LDL (test code = LDL) MG/DL 0-99 Comments to Disc Pad Grinder: NURSE WILL BRING SPECIMEN TO LABIs this a LINE draw? N [id number] 07:19:00 Test Item Value Reference Range Interpretation Comments MAGNESIUM (test code = MAG) MG/DL 1.6-2.3 Comments to Disc Pad Grinder: NURSE WILL BRING SPECIMEN TO LABIs this a LINE draw? N PROTHROMBIN [id number] 07:15:00 Test Item Value Reference Range Interpretation Comments PROTHROMBIN TIME 12.0 SECONDS 9.4-12.5 N PATIENT (test code = PTP) INTERNATIONAL NORMAL 1.1 The INR is to be RATIO (test code = used only for INR) monitoring oral anticoagulantth erap y. INDICATION I NR VALUE ---- ---- ---- -------1. Prophylaxis, de ep venous thrombos is, including hig h risk surgery. 2.0 - 3.0 2. Prophylaxis, de ep venous thrombos is, hip surgery, treatment for d eep venous thrombosis or pulmonary prevention of systemic emboli sm in patients wit h valvular heart disease, atrial fibrillation, tissue heart va lve, or acute myocar dial infarction. 2.0 - 3 .0 3. Mechanical prosthesis hear t valves, recurrent syste susana embolism. 3.0 - 4.5 Comments to Disc Pad Grinder: NURSE WILL BRING SPECIMEN TO LABPTT ACTIVATED 2020-05-02 07:15:00 Test Item Value Reference Range Interpretation Comments PTT ACTIVATED (test code = APTT) 24.2 SECONDS 25.1-36.5 L Comments to Disc Pad Grinder: NURSE WILL BRING SPECIMEN TO LABCBC W/AUTO DIFF 2020-05-02 07:04:00 Test Item Value Reference Range Interpretation Comments WHITE BLOOD CELL (test code = 6.8 K/MM3 3.8-9.8 N WBC) RED BLOOD CELL (test code = 4.01 M/MM3 3.58-4.97 N RBC) HEMOGLOBIN (test code = HGB) 11.9 G/DL 11.2-14.9 N HEMATOCRIT (test code = HCT) 37.6 % 33.2-43.5 N MEAN CELL VOLUME (test code = 94 fL 80.7-99.1 N MCV) MEAN CELL HGB (test code = MCH) 29.7 pg 27.0-34.1 N MEAN CELL HGB CONCETRATION 31.6 % 32.2-35.7 L (test code = MCHC) RED CELL DISTRIBUTION WIDTH 13.3 % 12.1-15.2 N (test code = RDW) PLATELET COUNT (test code = 178 K/MM3 129-368 N PLT) MEAN PLATELET VOLUME (test code 12.1 fl 7.4-10.4 H = MPV) NEUTROPHIL % (test code = NT%) 62.8 % 43-75 N IMMATURE GRANULOCYTE % (test 0.3 % 0.0-2.0 N code = IG%) LYMPHOCYTE % (test code = LY%) 24.7 % 14-44 N MONOCYTE % (test code = MO%) 9.3 % 4-13 N EOSINOPHIL % (test code = EO%) 1.9 % 0-6 N BASOPHIL % (test code = BA%) 1.0 % 0-2 N NUCLEATED RBC % (test code = 0.0 % 0-1.0 N NRBC%) NEUTROPHIL # (test code = NT#) 4.26 K/mm3 2.0-7.6 N IMMATURE GRANULOCYTE # (test 0.02 x10 3/uL 0-0.03 N code = IG#) LYMPHOCYTE # (test code = LY#) 1.68 K/mm3 1.0-3.8 N MONOCYTE # (test code = MO#) 0.63 K/mm3 0.1-0.8 N EOSINOPHIL # (test code = EO#) 0.13 K/mm3 0.0-0.2 N BASOPHIL # (test code = BA#) 0.07 K/mm3 0.0-0.2 N NUCLEATED RBC # (test code = 0.00 K/mm3 0.0-0.1 N NRBC#) Comments to Disc Pad Grinder: NURSE WILL BRING SPECIMEN TO LABIs this a LINE draw? N COVID 19 Asymptomatic IH [id number] 06:02:00 Test Item Value Reference Range Interpretation Comments COVID 19 NEGATIVE Negative "Negative resul ts from Asymptomatic IH AG patients with symptom (test code = onset beyondfiv e days, COVNONPUIAG) should be jesus onur as presumptive, andconfirmation with a molecular assay , if necessary forpa tient management may be performed. Nega tive results do notr ule out COVID-19 and sh ould not be used as the sole basisfor treatm ent or patient managem ent decisions, includinginfect ion control decisio ns. Negative result s should beconsidered in the context of a pa tients recent exposure s,history, and the presenc e of clinical signs and symptomsconsist ent with COVID-19.This t est detects both vi able andnon-viable S ARS-CoV and SARS CoV-2. Test performance dep endson the amount of virus (antigen) in the sample." POC [id number] 14:55:55 Test Item Value Reference Range Interpretation Comments POC creatinine (test 1.0 mg/dl 0.5-0.9 H Operato r Name: Maile code = 16202-9) ShadeDevice ID: [id number] Lab Interpretation (test Abnormal code = 16475-9) [facility] MethodistEstimated [id number] 14:55:55 Test Item Value Reference Range Interpretation Comments Estimated GFR (test 56 mL/min/1.73 m2 A Caterg ory Units code = 41686-1) Interpretati onG1 >=90 Galina l or highG2 60-89 Mildly decrease dG3a 45-59 Mil dly to moderately decr szwerC2y 30-44 Moderately to s everely decreasedG4 15-29 Severe ly decreasedG5 <15 Kidney ibis lureThe eGFR was calcul ated using the [facility] Kidney Disease Epidemiology Collaboration ( CKD-EPI) equation. Interpretation is based on recommendati ons of the [facility]-Kidn ey Disease Outcome s Quality Initiat garcia (NK-KDOQI) pub lished in 2013. Lab Interpretation Abnormal (test code = 34832-6) Lavelle IvyMRI Breast W Wo Contrast [id number] 12:45:28There is no suspicous enhancement on MRI to suggest malignancy. Continued monitoring of the clinicalexamination is recommended and routine mammography. BI-RADS Category 1:Negative Workstation Name: [id number] Interface, Radiology Results 03/31/2020 12:45 PM CDTFILMS COMPARED:The present examination has been compared to a prior outside MR imaging study dated 11/14/2018. BREAST MRI:Prior to administration of intravenous contrast media, axial STIR, and axial T1 images of both breasts were obtained. The patient was injected with 7.1 cc's of Gadavist. Dynamic scanning of both breasts was then performed, with four consecutive sequences of axial T1 weighted gradient echo fat saturated images Three dimensional reconstruction using maximal intensity projections and subtracted images werealso constructed. There is scattered fibroglandular tissue. There is mild background parenchymal enhancement. There is no evidence of suspicious lesion or suspicious enhancement in either breast. Visualized portions of the axillae are unremarkable. IMPRESSION:There is no suspicous enhancement on MRI to suggest malignancy. Continued monitoring of the clinical examination is recommended and routine mammography. BI-RADS Category 1:Negative Workstation Name: [id number] MethodistUS Breast Complete [id number] 13:08:21Hm Interface, Radiology Results 03/24/2020 1:11 PM CDTPROCEDURE:Left Breast Tomosynthesis Diagnostic Mammogram, Left Breast UltrasoundHISTORY:Patient is 74 years old and is seen for diagnostic evaluation. The patient has the following family history of breast cancer: sister, at age 65, breast cancer. The patient has no current palpable breast complaints.FILMS COMPARED:The present examination has been compared to prior imaging studies dated 11/14/2018, 06/19/2019 and 09/27/2019.MAMMOGRAMFINDINGS:There are scattered areas of fibroglandular densities.Finding 1: There is global asymmetrywith associated skin retraction in the upper outer quadrant of the left breast.Finding 2: There is a focal asymmetry in the upper inner quadrant of the left breast.ULTRASOUND FINDINGS:Unilateral real-time whole breast sonography of the left breast included all four quadrants and the retroareolar regions under close supervision by the radiologist.There is no evidence of any solid mass or cystic masses of concern. There is a somewhat rounded dense area seen on ultrasound in the upper outer quadrant but without a distinct mass appearance. No abnormal vascularity noted.IMPRESSION:Finding 1: Global asymmetry in the upper outer quadrant of the left breast is probably benign. Follow-up in 6 months is recommended.Finding 2: Focal asymmetry in the upper inner quadrant of the left breast is probably benign. Follow-up in 6 months is recommended.Findings and recommendations were discussed with the patient at the time of the examination.Also because of the family history of breast cancer in sister, recommend breast MRI.BI-RADS Category 3:Probably Benign Finding(s)Workstation Name: [id number] NEGATIVE X-RAY REPORT SHOULD NOT DELAY BIOPSY IF A DOMINANT OR CLINICALLY SUSPICIOUS MASS IS PRESENT. NOT ALL CANCERS ARE IDENTIFIED BY X-RAY.[facility] Breast Diagnostic Tomosynthesis [id number] 13:08:21Hm Interface, Radiology Results 03/24/2020 1:11 PM CDTPROCEDURE:Left Breast Tomosynthesis Diagnostic Mammogram, Left Breast UltrasoundHISTORY:Patient is 74 years old and is seen for diagnostic evaluation. The patient has the following family history of breast cancer: sister, at age 65, breast cancer. The patient has no current palpable breast complaints.FILMS COMPARED:The present examination has been compared to prior imaging studies dated 11/14/2018, 06/19/2019 and 09/27/2019.MAMMOGRAM FINDINGS:There are scattered areas of fibroglandular densities.Finding 1: There is global asymmetrywith associated skin retraction in the upper outer quadrant of the left breast.Finding 2: There is a focal asymmetry in the upper inner quadrant of the left breast.ULTRASOUND FINDINGS:Unilateral real-time whole breast sonography of the left breast included all four quadrants and the retroareolar regions under close supervision by the radiologist.There is no evidence of any solid mass or cystic masses of concern. There is a somewhat rounded dense area seen on ultrasound in the upper outer quadrant but without a distinct mass appearance. No abnormal vascularity noted.IMPRESSION:Finding 1: Global asymmetry in the upper outer quadrant of the left breast is probably benign. Follow-up in 6 months is recommended.Finding 2: Focal asymmetry in the upper inner quadrant of the left breast is probably benign. Follow-up in 6 months is recommended.Findings and recommendations were discussed with the patient at the time of the examination.Also because of the family history of breast cancer in sister, recommend breast MRI.BI-RADS Category 3:Probably Benign Finding(s)Workstation Name: [id number] NEGATIVE X-RAY REPORT SHOULD NOT DELAY BIOPSY IF A DOMINANT OR CLINICALLY SUSPICIOUS MASS IS PRESENT. NOT ALL CANCERS ARE IDENTIFIED BY X-RAY.Lavelle Lance Breast Complete Bilateral 2019-09-27 15:04:37Hm Interface, Radiology Results 09/27/2019 3:07 PM CSTPROCEDURE: MAMMO BREAST DIAGNOSTICTOMOSYNTHESIS BILATERAL, US BREAST COMPLETE BILATERAL 09/27/2019 12:45 PMThis patient's mammogram wasinterpreted with the assistance of computer-aided detection (CAD).CLINICAL HISTORY: 74 -year-old female referred for bilateral diagnostic mammogram. Patient has a history of a probably benign asymmetry within the upper inner left breast. Family history of breast carcinoma diagnosed in patient's sister. Patient also had a recent MRI which demonstrated no associated enhancement within the questioned area of focal asymmetry.COMPARISON: Outside mammograms dated 06/19/2019, 10/09/2018. Outside breast MRI dated 11/14/2018.BREAST DENSITY: There are scattered areas of fibroglandular density.DIGITAL DIAGNOSTIC MAMMOGRAPHY:There are no dominant masses, suspicious microcalcifications or unexplained architectural distortion to suggest malignancy in either breast. Stable appearance of asymmetric breast tissue within the upper outer left breast. Stable appearance of probably benign focal asymmetry within theupper inner left breast at mid depth, approximately 5 cm from the nipple.BREAST ULTRASOUND:Complete bilateral breast sonogram, to include scanning of all 4 quadrants and the retroareolar/subareolar region, was performed by the technologist with close supervision by the radiologist.Sonographic evaluation of both breasts demonstrates normal glandular tissue within all 4 quadrants and retroareolar positions. No suspicious finding within either breastIMPRESSION:BI- RADS Category 3-Probably Benign.1.Stable probably benign focal asymmetry within the upper inner left breast, likely reflecting a patch of fibroglandular breast tissue.2.No mammographic or sonographic evidence for malignancy within either breast.RECOMMENDATION:Follow-up left diagnostic mammogram with left breast ultrasound is recommended to ensure stability of probably benign left breast focal asymmetry. Ongoing management is per Dr. Avery.Findings and recommendations were discussed with the patient at the conclusion of this examination.All questions were answered.This facility is accredited by [employer] for Mammography. A negative x-ray report should not delay biopsy if a dominant or clinically suspicious massis present. Not all cancers are identified by x-ray.[facility] Breast Diagnostic Tomosynthesis [id number] 15:04:37Hm Interface, Radiology Results - 09/27/2019 3:07 PM CSTPROCEDURE: MAMMO BREAST DIAGNOSTIC TOMOSYNTHESIS BILATERAL, US BREAST COMPLETE BILATERAL 09/27/2019 12:45 PMThis patient's mammogram wasinterpreted with the assistance of computer-aided detection (CAD).CLINICAL HISTORY: 74 -year-old female referred for bilateral diagnostic mammogram. Patient has a history of a probably benign asymmetry within the upper inner left breast. Family history of breast carcinoma diagnosed in patient's sister. Patient also had a recent MRI which demonstrated no associated enhancement within the questioned area of focal asymmetry.COMPARISON: Outside mammograms dated 06/19/2019, 10/09/2018. Outside breast MRI dated 11/14/2018.BREAST DENSITY: There are scattered areas of fibroglandular density.DIGITAL DIAGNOSTIC MAMMOGRAPHY:There are no dominant masses, suspicious microcalcifications or unexplained architectural distortion to suggest malignancy in either breast. Stable appearance of asymmetric breast tissue within the upper outer left breast. Stable appearance of probably benign focal asymmetry within theupper inner left breast at mid depth, approximately 5 cm from the nipple.BREAST ULTRASOUND:Complete bilateral breast sonogram, to include scanning of all 4 quadrants and the retroareolar/subareolar region, was performed by the technologist with close supervision by the radiologist.Sonographic evaluation of both breasts demonstrates normal glandular tissue within all 4 quadrants and retroareolar positions. No suspicious finding within either breastIMPRESSION:BI-RADS Category 3-Probably Benign.1.Stable probably benign focal asymmetry within the upper inner left breast, likely reflecting a patch of fibroglandular breast tissue.2.No mammographic or sonographic evidence for malignancy within either breast.RECOMMENDATION:Follow- up left diagnostic mammogram with left breast ultrasound is recommended to e nsure stability of probably benign left breast focal asymmetry. Ongoing management is per Dr. Avery.Findings and recommendations were discussed with the patient at the conclusion of this examination.All questions were answered.This facility is accredited by [employer] for [employer]ammography. A negative x-ray report should not delay biopsy if a dominant or clinically suspicious massis present. Not all cancers are identified by x-ray. Lavelle Ivy
[2020-08-08 15:09] LABS: Absolute Lymphocytes (CBC) 1.5 K/uL (0.7-4.9); Lymphocytes % 21.5 % (15.3-44.8)
[2020-08-08 15:13] LABS: Protime INR 1.08
[2020-08-08 15:18] LABS: Potassium 3.9 mmol/L (3.5-5.1)
--- NOTE | 2020-08-08 15:42 | RAD REPORT ---
EXAM DESCRIPTION: CT - Ct Stroke Brain Wo Cont - 08/08/2020 3:03 pm CLINICAL HISTORY: CONFUSED Headache, drowsiness, CVA symptomology COMPARISON: Head Brain Wo Cont dated 07/25/2018 TECHNIQUE: All CT scans are performed using dose optimization technique as appropriate and may inclu de automated exposure control or mA/KV adjustment according to patient size. FINDINGS: No intracranial hemorrhage, hydrocephalus or extra-axial fluid collection.No areas of brai n edema or evidence of midline shift. The paranasal sinuses and mastoids are clear. The calvarium is intact. IMPRESSION: No acute intracranial abnormality. Dr. Morales in the ER was notified on 08/08/2020 at 2:57 p.m. by text message..
--- NOTE | 2020-08-08 16:02 | RAD REPORT ---
EXAM DESCRIPTION: RAD - Chest Single View - 08/08/2020 3:25 pm CLINICAL HISTORY: AMS Chest pain. COMPARISON: Chest Pa And Lat (2 Views) dated 10/28/2017; CHEST PA AND LAT 2 VIEW dated 02/26/2014; CHEST PA AND LAT 2 VIEW dated 10/02/2013; CHEST PA AND LAT 2 VIEW dated 08/20/2006 FINDINGS: Portable technique limits examination quality. The lungs are grossly clear. The heart is normal in size. Mildly tortuous thoracic aorta. No displace d fractures. IMPRESSION: No acute intrathoracic process suspected.
--- NOTE | 2020-08-08 16:56 | ER ---
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 Cannot answer questions appropriately during triage. Confused, and keeps stating "I don't known what to say", over and over again. Stroke alert called. Wheeled to CT via wheelchair. Coronavirus screen: Client denies travel out of the [place] in the last 14 days. At this time, the client does not indicate any symptoms associated with coronavirus-19. Ebola Screen: Patient denies travel to an Ebola-affected area in the 21 days before illness onset. An acute neurological deficit is present. The charge nurse has been notified. Initial Sepsis Screen: Does the patient meet any 2 criteria? No. Patient's initial sepsis screen is negative. Does the patient have a suspected source of infection? Yes: Other: acute EASLEY. Risk Assessment: Do you want to hurt yourself or someone else? Patient reports no desire to harm self or others. 14:45 Method Of Arrival: Wheelchair ll1 14:47 Onset of symptoms was August 08, 2020. ll1 14:47 Acuity: KHANH 2 ll1 Triage Assessment: 17:00 The onset of the patients symptoms was August 08, 2020 at 14:00. ph Stroke Activation: Symptom onset < 3 hours Physician: Stroke Attending; Name: ; Notified At: ; Arrived At: Physician: Chief Stroke Resident; Name: ; Notified At: ; Arrived At: Physician: Stroke Resident; Name: ; Notified At: ; Arrived At: Physician: ED Attending; Name: ; Notified At: ; Arrived At: Physician: ED Resident; Name: ; Notified At: ; Arrived At: Historical: - Allergies: 14:47 No Known Allergies; ll1 - PMHx: 14:47 Diabetes - NIDDM; ll1 - PSHx: 14:47 Hysterectomy; heart stents; ll1 - Immunization history:: Adult Immunizations up to date. - Social history:: Smoking status: Patient denies any tobacco usage or history of. Screenin:03 Abuse screen: Denies threats or abuse. Denies injuries from another. Nutritional ph screening: No deficits noted. Tuberculosis screening: No symptoms or risk factors identified. Fall Risk None identified. Assessment: 14:48 Reassessment: Code Stroke called. sv 14:51 Reassessment: Pt to CT via wheelchair by Leeanne HENAO. hb 14:56 Reassessment: Pt back from CT via wheelchair. hb 15:02 Reassessment: Dr Morales at bedside. ph 15:10 General: Appears in no apparent distress. well groomed, Behavior is cooperative, ph anxious, crying. Pain: Complains of pain in left side of forehead. Neuro: Level of Consciousness is awake, alert, obeys commands, Oriented to person, place, time, situation, [employer] are equal bilaterally Moves all extremities. Full function Facial symmetry appears normal, Facial symmetry: tongue is midline, Pupils are PERRLA, Intact Reports headache in left frontal area, Denies weakness blurred vision dizziness. Cardiovascular: Denies chest pain, shortness of breath, Capillary refill < 3 seconds in bilateral fingers Patient's skin is warm and dry. Respiratory: Airway is patent Respiratory effort is even, unlabored, Respiratory pattern is regular, symmetrical. GI: No signs and/or symptoms were reported involving the gastrointestinal system. Derm: Skin is intact, is healthy with good turgor, Skin is pink, warm \\T\\ dry. Musculoskeletal: Circulation, motion, and sensation intact. Range of motion: intact in all extremities. 15:10 VAN Scoring: Arm Drift: Patients demonstrates NO arm weakness. Patient is VAN Negative. ph 16:00 Reassessment: Patient appears in no apparent distress at this time. Patient and/or ph family updated on plan of care and expected duration. Pain level reassessed. Patient is alert, oriented x 3, equal unlabored respirations, skin warm/dry/pink. Pt awake and alert, speaking in full sentences, at bedside, BP improving, c/o headache. 16:48 Patient has been NPO before screening. The patient is alert, and able to follow ph commands. The patient does not exhibit slurred or garbled speech. The patient is not exhibiting difficulty speaking. The patient does not exhibit difficulty understanding words. The patient is able to swallow own secretions with no drooling or need for suction. Patient tolerated one teaspoon of water. No drooling, immediate coughing, gurgling, or clearing of the throat was noted. The patient tolerated 90mL of water. No drooling, immediate coughing, gurgling, or clearing of the throat was noted. The patient passed the bedside swallow screening. Oral medications may be given as ordered. Contact Physician for further diet orders. Provider notified of bedside swallow screening results: Mayur Morales MD. 17:30 Reassessment: Patient appears in no apparent distress at this time. Patient and/or ph family updated on plan of care and expected duration. Pain level reassessed. Patient is alert, oriented x 3, equal unlabored respirations, skin warm/dry/pink. TPA administered per provider order, see MAR and vitals flowsheet, Awaiting transfer to [facility], at bedside. 18:30 Reassessment: Patient appears in no apparent distress at this time. Patient and/or ph family updated on plan of care and expected duration. Pain level reassessed. Patient is alert, oriented x 3, equal unlabored respirations, skin warm/dry/pink. Report called to Rose Mary HENAO at [facility], transfer form signed by pt, pt appears anxious and tearful when informed that could not accompany her to [place], BP in creased to 200s systolic, ERP notified and Ativan ordered. 18:45 Reassessment: Patient appears in no apparent distress at this time. Patient and/or ph family updated on plan of care and expected duration. Pain level reassessed. Patient is alert, oriented x 3, equal unlabored respirations, skin warm/dry/pink. [facility] at bedside, report given to EMT-P, pt appears more relaxed, resting w/ eyes closed, BP decreased to 170s systolic, pt transferred to [facility]. Vital Signs: 14:47 BP 214 / 88; Pulse 78; Resp 18; Temp 97.7; Pulse Ox 100% ; Pain 9/10; ll1 14:55 BP 211 / 83; Pulse 68; Resp 12; Pulse Ox 99% on R/A; hb 15:30 BP 137 / 62; Pulse 63; Resp 18; Pulse Ox 98% on R/A; ph 16:46 BP 119 / 49; Pulse 60; Resp 16; Temp 97.8; Pulse Ox 98% on R/A; ph 16:57 Weight 69.85 kg; sv 17:15 BP 144 / 69; Pulse 54; Resp 18; Pulse Ox 98% on R/A; ph 17:45 BP 173 / 64; Pulse 56; Resp 16; Pulse Ox 100% on R/A; ph 18:30 BP 200 / 73; Pulse 62; Resp 16; Pulse Ox 100% on R/A; ph 18:45 BP 173 / 68; Pulse 58; Resp 16; Temp 97.5; Pulse Ox 100% on R/A; ph NIH Stroke Scale Scores: 15:10 NIHSS Score: 1 ph 15:21 NIHSS Score: 1 kdr ED Course: 14:43 Patient arrived in ED. rg4 14:47 Arm band placed on. ll1 14:48 Triage completed. ll1 14:50 Mayur Morales MD is Attending Physician. kdr 14:58 Inserted saline lock: 20 gauge in right antecubital area, using aseptic technique. hb ,using aseptic technique. done by Mar HENAO Blood collected. 15:03 CT Stroke Brain w/o Contrast In Process Unspecified. EDMS 15:03 Patient has correct armband on for positive identification. Placed in gown. Bed in low ph position. Call light in reach. Side rails up X2. property assessment monitor on. Pulse ox on. NIBP on. Door closed. Noise minimized. Warm blanket given. Verbal reassurance given. 15:15 Mar Polo, RN is Primary Nurse. ph 15:26 Stroke CXR 1 View In Process Unspecified. EDMS 16:45 initiated a transfer with JASON Muniz from the [facility] Transfer [facility]. eb 16:[address] Vazquez the neurologist lesson instructor for [facility] with Dr. Morales for patient transfer consultation. 16:59 administrative approval given by JASON Muniz/ patient has been accepted to [facility] eb [address] [place] [address] Bed 1/ Dr. Vazquez has accepted the patient in transfer/ report to be called to [phone]. 17:00 TPA consent form signed by pt. ph 18:21 [facility] called for transport. eb 18:50 No provider procedures requiring assistance completed. Patient transferred, IV remains ph in place. Administered Medications: 17:15 Drug: Alteplase {Co-Signature: hb (Marcela Gaston RN).} Route: IV Thrombolytics; Rate: ph calculated rate; 18:15 Follow up: Response: No adverse reaction ph 18:35 Drug: Tylenol 650 mg Route: PO; ph 19:00 Follow up: Response: No adverse reaction ph 18:42 Drug: Ativan 0.5 mg Route: IVP; Site: right antecubital; ph 19:00 Follow up: Response: No adverse reaction; Anxiety decreased ph Outcome: 16:56 ER care complete, transfer ordered by . kdr 19:00 Transferred by ground EMS [place]. to [facility], [facility], Transfer form ph completed. X-rays sent w/ patient. 19:00 Condition: stable 19:00 Instructed on the need for transfer. 19:01 Patient left the ED. NIH Stroke Scale - NIH Stroke Score Date: 08/08/2020 Time: 15:10 Total Score = 1 1a. Level of Consciousness (LOC) - 0(Alert) 1b. Level of Consciousness (LOC) (Year \\T\\ Age) - 0(Both) 1c. LOC Commands (Open \\T\\ Closes Eyes/Racing Driver) - 0(Both) 2. Best Gaze (Lateral Gaze Paresis) - 0(Normal) 3. Visual Field Loss - 0(No visual loss) 4. Facial Palsy - 0(Normal) 5a. Left Arm: Motor (10-second hold) - 0(No drift) 5b. Right Arm: Motor (10-second hold) - 0(No drift) 6a. Left Leg: Motor (5-second hold - always test supine) - 0(No drift) 6b. Right Leg: Motor (5-second hold - always test supine) - 0(No drift) 7. Limb Ataxia (finger/nose \\T\\ heel/cruz - test with eyes open) - 0(Absent) 8. Sensory Loss (pinprick arms/legs/face) - 0(Normal) 9. Best Language: Aphasia (description/naming/reading) - 0(No aphasia) 10. Dysarthria (speech clarity - read or repeat words) - 1(Mild to Moderate) 11. Extinction and Inattention (visual/tactile/auditory/spatial/personal) - 0(No abnormality) Initials: NIH Stroke Scale - NIH Stroke Score Date: 08/08/2020 Time: 15:21 Total Score = 1 1a. Level of Consciousness (LOC) - 0(Alert) 1b. Level of Consciousness (LOC) (Year \\T\\ Age) - 0(Both) 1c. LOC Commands (Open \\T\\ Closes Eyes/Racing Driver) - 0(Both) 2. Best Gaze (Lateral Gaze Paresis) - 0(Normal) 3. Visual Field Loss - 0(No visual loss) 4. Facial Palsy - 0(Normal) 5a. Left Arm: Motor (10-second hold) - 0(No drift) 5b. Right Arm: Motor (10-second hold) - 0(No drift) 6a. Left Leg: Motor (5-second hold - always test supine) - 0(No drift) 6b. Right Leg: Motor (5-second hold - always test supine) - 0(No drift) 7. Limb Ataxia (finger/nose \\T\\ heel/cruz - test with eyes open) - 0(Absent) 8. Sensory Loss (pinprick arms/legs/face) - 0(Normal) 9. Best Language: Aphasia (description/naming/reading) - 0(No aphasia) 10. Dysarthria (speech clarity - read or repeat words) - 1(Mild to Moderate) 11. Extinction and Inattention (visual/tactile/auditory/spatial/personal) - 0(No abnormality) Initials: [facility] Signatures: Dispatcher [employer] EDLeeanne Lo RN RN sv Rittger, Kevin, MD MD [facility] Mar Polo RN RN Marcela Gaston RN RN Belkis Jose Elizabeth eb Lewis, Lynsay, RN RN 1 Marcela Gaston RN Corrections: (The following items were deleted from the chart) 15:04 14:47 Acuity: KHANH 1 ll1 ll1
--- NOTE | 2020-08-08 16:56 | EDPHYS ---
Physician Documentation [facility] Name: Marizol Huizar Age: 75 yrs Sex: Female : 1945 Arrival Date: 08/08/2020 Time: 14:43 Bed 8 Private MD: ED Physician Mayur Morales HPI: 08/08 15:23 This 75 yrs old Female presents to ER via Wheelchair with complaints of kdr Trouble Talking, Confusion. 15:23 The patient presents to the emergency department with a speech or higher order brain kdr function problem, aphasia. Onset: The symptoms/episode began/occurred suddenly, just prior to arrival. Context: occurred at home, occurred while the patient was working. Associated signs and symptoms: Pertinent positives: headache. Severity of symptoms: At their worst the symptoms were moderate incapacitating just prior to arrival, in the emergency department the symptoms have improved markedly. Patient's baseline: Neuro: alert and fully oriented, Motor: no deficits, Ambulation: walks without assistance, Speech: normal for age, The patient has a previous history of. Current symptoms: confusion, headache, that is mild. The patient has not experienced similar symptoms in the past. The patient has not recently seen a physician. Historical: - Allergies: 14:47 No Known Allergies; ll1 - PMHx: 14:47 Diabetes - NIDDM; ll1 - PSHx: 14:47 Hysterectomy; heart stents; ll1 - Immunization history:: Adult Immunizations up to date. - Social history:: Smoking status: Patient denies any tobacco usage or history of. ROS: 15:23 Constitutional: Negative for fever, chills, and weight loss, Eyes: Negative for injury, kdr pain, redness, and discharge, ENT: Negative for injury, pain, and discharge, Neck: Negative for injury, pain, and swelling, Cardiovascular: Negative for chest pain, palpitations, and edema, Respiratory: Negative for shortness of breath, cough, wheezing, and pleuritic chest pain, Abdomen/GI: Negative for abdominal pain, nausea, vomiting, diarrhea, and constipation, Back: Negative for injury and pain, : Negative for injury, bleeding, discharge, and swelling, MS/Extremity: Negative for injury and deformity, Skin: Negative for injury, rash, and discoloration, Psych: Negative for depression, anxiety, suicide ideation, homicidal ideation, and hallucinations, Allergy/Immunology: Negative for hives, rash, and allergies, Endocrine: Negative for neck swelling, polydipsia, polyuria, polyphagia, and marked weight changes, Hematologic/Lymphatic: Negative for swollen nodes, abnormal bleeding, and unusual bruising. 15:23 Neuro: Positive for altered mental status, headache, speech changes, weakness. Exam: 15:23 Constitutional: This is a well developed, well nourished patient who is awake, alert, kdr and in no acute distress. Head/Face: Normocephalic, atraumatic. Eyes: Pupils equal round and reactive to light, extra-ocular motions intact. Lids and lashes normal. Conjunctiva and sclera are non-icteric and not injected. Cornea within normal limits. Periorbital areas with no swelling, redness, or edema. Neck: Trachea midline, no thyromegaly or masses palpated, and no cervical lymphadenopathy. Supple, full range of motion without nuchal rigidity, or vertebral point tenderness. No Meningismus. Chest/axilla: Normal chest wall appearance and motion. Nontender with no deformity. No lesions are appreciated. Cardiovascular: Regular rate and rhythm with a normal S1 and S2. No gallops, murmurs, or rubs. Normal PMI, no JVD. No pulse deficits. Respiratory: Lungs have equal breath sounds bilaterally, clear to auscultation and percussion. No rales, rhonchi or wheezes noted. No increased work of breathing, no retractions or nasal flaring. Abdomen/GI: Soft, non-tender, with normal bowel sounds. No distension or tympany. No guarding or rebound. No evidence of tenderness throughout. Back: No spinal tenderness. No costovertebral tenderness. Full range of motion. Skin: Warm, dry with normal turgor. Normal color with no rashes, no lesions, and no evidence of cellulitis. MS/ Extremity: Pulses equal, no cyanosis. Neurovascular intact. Full, normal range of motion. Psych: Awake, alert, with orientation to person, place and time. Behavior, mood, and affect are within normal limits. 15:23 Neuro: Orientation: is normal, Mentation: appropriate for stated age, responsive to voice able to follow commands, Cranial nerves: is grossly normal based on the patient's age, no acute changes, Cerebellar function: is grossly normal based on the patient's age, no acute changes, Motor: is normal, The patient was able to complete the identification of the symbols in the pictures on the stroke cards. She had difficulty with some of the longer sentences.. 18:38 ECG was reviewed by the Attending Physician. kdr Vital Signs: 14:47 BP 214 / 88; Pulse 78; Resp 18; Temp 97.7; Pulse Ox 100% ; Pain 9/10; ll1 14:55 BP 211 / 83; Pulse 68; Resp 12; Pulse Ox 99% on R/A; hb 15:30 BP 137 / 62; Pulse 63; Resp 18; Pulse Ox 98% on R/A; ph 16:46 BP 119 / 49; Pulse 60; Resp 16; Temp 97.8; Pulse Ox 98% on R/A; ph 16:57 Weight 69.85 kg; sv 17:15 BP 144 / 69; Pulse 54; Resp 18; Pulse Ox 98% on R/A; ph 17:45 BP 173 / 64; Pulse 56; Resp 16; Pulse Ox 100% on R/A; ph 18:30 BP 200 / 73; Pulse 62; Resp 16; Pulse Ox 100% on R/A; ph 18:45 BP 173 / 68; Pulse 58; Resp 16; Temp 97.5; Pulse Ox 100% on R/A; ph NIH Stroke Scale Scores: 15:10 NIHSS Score: 1 ph 15:21 NIHSS Score: 1 kdr MDM: 16:46 Data reviewed: vital signs, nurses notes. Physician consultation: Ronnie Rodriguez MD. [facility] 16:48 ED course: While the patient's expressive aphasia has nearly completely resolved, after [facility] discussion with Dr. Rodriguez, will administer t-PA and transfer to [facility]. 16:56 Patient medically screened. kdr 18:42 ED course: Since the patient's symptoms have nearly completely resolved, will send by [facility] ground ambulance. 08/08 14:50 Order name: Basic Metabolic Panel; Complete Time: 15:29 [facility] 08/08 14:50 Order name: CBC with Diff; Complete Time: 15:29 [facility] 08/08 14:50 Order name: Protime (+inr); Complete Time: 15:29 [facility] 08/08 14:50 Order name: Ptt, Activated; Complete Time: 15:29 [facility] 01/16 15:10 Order name: Glucose, Ancillary Testing; Complete Time: 15:29 EDMS 08/08 14:50 Order name: CT Stroke Brain w/o Contrast; Complete Time: 16:46 [facility] 08/08 14:50 Order name: Stroke CXR 1 View; Complete Time: 16:46 [facility] 08/08 14:50 Order name: EKG; Complete Time: 14:51 [facility] 08/08 14:50 Order name: Accucheck; Complete Time: 15:02 [facility] 08/08 18:23 Order name: SARS-COV-2 RT PCR; Complete Time: 18:38 EDMS 08/08 14:50 Order name: Cardiac monitoring; Complete Time: 15:02 [facility] 08/08 14:50 Order name: EKG - Nurse/Tech; Complete Time: 15:02 [facility] 08/08 14:50 Order name: IV Saline Lock; Complete Time: 15:02 [facility] 08/08 14:50 Order name: Labs collected and sent; Complete Time: 15:02 [facility] 08/08 14:50 Order name: NPO; Complete Time: 15:02 [facility] 08/08 14:50 Order name: O2 Per Protocol; Complete Time: 15:02 [facility] 08/08 14:50 Order name: O2 Sat Monitoring; Complete Time: 15:02 [facility] 08/08 14:50 Order name: Stroke Swallow Screen; Complete Time: 19:01 kdr EC:38 Rate is 66 beats/min. Rhythm is regular, Sinus Rhythm with Unifocal PVCs. QRS Victor is kdr Normal. MT interval is normal. Clinical impression: NSR w/ Non-specific ST/T Changes. Administered Medications: 17:15 Drug: Alteplase {Co-Signature: hb (Marcela Gaston RN).} Route: IV Thrombolytics; Rate: ph calculated rate; 18:15 Follow up: Response: No adverse reaction ph 18:35 Drug: Tylenol 650 mg Route: PO; ph 19:00 Follow up: Response: No adverse reaction ph 18:42 Drug: Ativan 0.5 mg Route: IVP; Site: right antecubital; ph 19:00 Follow up: Response: No adverse reaction; Anxiety decreased ph Disposition: 08/08/20 16:56 Transfer ordered to [facility]. Diagnosis are Expressive language disorder, CVA with expressive aphasia. - Reason for transfer: Higher level of care. - Accepting physician is Dr. Dawson. - Condition is Fair. - Problem is new. - Symptoms have improved. NIH Stroke Scale - NIH Stroke Score Date: 08/08/2020 Time: 15:10 Total Score = 1 1a. Level of Consciousness (LOC) - 0(Alert) 1b. Level of Consciousness (LOC) (Year \T\ Age) - 0(Both) 1c. LOC Commands (Open \T\ Closes Eyes/[employer]) - 0(Both) 2. Best Gaze (Lateral Gaze Paresis) - 0(Normal) 3. Visual Field Loss - 0(No visual loss) 4. Facial Palsy - 0(Normal) 5a. Left Arm: Motor (10-second hold) - 0(No drift) 5b. Right Arm: Motor (10-second hold) - 0(No drift) 6a. Left Leg: Motor (5-second hold - always test supine) - 0(No drift) 6b. Right Leg: Motor (5-second hold - always test supine) - 0(No drift) 7. Limb Ataxia (finger/nose \T\ heel/cruz - test with eyes open) - 0(Absent) 8. Sensory Loss (pinprick arms/legs/face) - 0(Normal) 9. Best Language: Aphasia (description/naming/reading) - 0(No aphasia) 10. Dysarthria (speech clarity - read or repeat words) - 1(Mild to Moderate) 11. Extinction and Inattention (visual/tactile/auditory/spatial/personal) - 0(No abnormality) Initials: NIH Stroke Scale - NIH Stroke Score Date: 08/08/2020 Time: 15:21 Total Score = 1 1a. Level of Consciousness (LOC) - 0(Alert) 1b. Level of Consciousness (LOC) (Year \T\ Age) - 0(Both) 1c. LOC Commands (Open \T\ Closes Eyes/[employer] Supervisor) - 0(Both) 2. Best Gaze (Lateral Gaze Paresis) - 0(Normal) 3. Visual Field Loss - 0(No visual loss) 4. Facial Palsy - 0(Normal) 5a. Left Arm: Motor (10-second hold) - 0(No drift) 5b. Right Arm: Motor (10-second hold) - 0(No drift) 6a. Left Leg: Motor (5-second hold - always test supine) - 0(No drift) 6b. Right Leg: Motor (5-second hold - always test supine) - 0(No drift) 7. Limb Ataxia (finger/nose \T\ heel/cruz - test with eyes open) - 0(Absent) 8. Sensory Loss (pinprick arms/legs/face) - 0(Normal) 9. Best Language: Aphasia (description/naming/reading) - 0(No aphasia) 10. Dysarthria (speech clarity - read or repeat words) - 1(Mild to Moderate) 11. Extinction and Inattention (visual/tactile/auditory/spatial/personal) - 0(No abnormality) Initials: kdr Signatures: Dispatcher [employer] EDWY Mayur Morales MD MD [facility] Mar Polo RN RN Marcela Gaston RN RN Jovani Lyons RN RN [facility] Marcela Gaston RN Corrections: (The following items were deleted from the chart) 17:01 16:56 08/08/2020 16:56 Transfer ordered to [facility]. Diagnosis is Expressive language disorder; CVA with expressive aphasia. Reason for transfer: Higher level of care. Accepting physician is Vidal. Condition is Fair. Problem is new. Symptoms have improved. kdr 17:17 17:01 CORONAVIRUS+MR.LAB.ROSALIAZ ordered. [facility] 19:01 17:01 08/08/2020 16:56 Transfer ordered to [facility]. Diagnosis is Expressive language disorder; CVA with expressive aphasia. Reason for transfer: Higher level of care. Accepting physician is Dr. Dawson. Condition is Fair. Problem is new. Symptoms have improved. kdr
[2020-08-08] MEDS ORDERED: NA CHLORIDE 0.9% 250 ML ONE (17:10)
[2020-08-08] MEDS ORDERED: ALTEPLASE 100 ML IV ONE (17:10)
[2020-08-08] MEDS ORDERED: ACETAMINOPHEN 325 MG TABLET ONE (18:40)
[2020-08-08 19:09] VITALS: O2SAT 98
[2020-08-08 19:10] VITALS: BP 119/49; TEMP 97.8
== END 2020-08-08 19:01 | disposition short-term general hospital (02) ==
LOC: ER 14:42
DX: I63.9 Cerebral infarction, unspecified (principal); R47.01 Aphasia; R29.701 NIHSS score 1; Z20.822 Contact with and (suspected) exposure to COVID-19; Z95.818 Presence of other cardiac implants and grafts
CPT/HCPCS: 92977; 93005; 85025; 80048; 36415; 85610; 82947; 85730; 70450; 71045; 96374; 99285; U0003; J2997; J7050

== ENCOUNTER 2020-11-26 16:43 | Emergency (ER) | payer OTHER ==
--- OUTSIDE RECORDS SUMMARY | 2020-11-26 16:47 | XMS REPORT | Continuity of Care Document ---
:1945 Author Organization [facility] t Address [address] [place] [address] Dr. Sears. [address] [place] [address] Care Team Providers Name Role Phone Asked, Pcp Primary Care Physician Unavailable Bennie LOW, PGustavo Attending Clinician Aldo Duran Attending Clinician Sharyn Cho MD Attending Clinician ALDO DURAN Attending Clinician Unavailable QUENTIN Attending Clinician Unavailable SHARYN CHO Admitting Clinician Unavailable QUENTIN Admitting Clinician Unavailable Payers Payer Name Policy Type Policy Effective Date Expiration Date Sour ce Number MEDICAREMEDICARE PART [id number] 2011 [facility] A AND 00:00:00 Denominational [id number] 2011[place] [facility] [place]UAL OF [place]UTUAL [id number] 2019 Jennifer mckeon OF 00:00:00 Denominational [id number] [facility] A [id number] 2011 ANDREA Alicia [id number] 2011- 00:00:00 - M edical [facility] MCR [id number] 2019 [facility] SUPPLEMENT/INDIVIDUAL 00:00:00 - [facility] [id number] 2019 -PresentMedigap Problems Condition Condition Condition Status Onset Resolution Last Treating Co mments Source Name Details Category Date Date Treatment Clinician Date Received Received Disease [facility] - plasminoge plasminoge 00:00: Me dical n n 00 Center activator activator (t-PA) (t-PA) less than less than 24 hours 24 hours prior to prior to arrival arrival DM DM Disease Active [facility] (diabetes (diabetes 08-09 [facility] - mellitus) mellitus) 00:00: Medi orly 00 [place] Hypertensi Hypertensi Disease Active [facility] on on 08-09 [facility] - 00:00: Medical 00 [place] SAH SAH Disease Active [facility] (subarachn (subarachn 08-09 Tisha kes - oid oid 00:00: Medical hemorrhage hemorrhage 00 Ce nter ) ) Stroke Stroke Disease Active [facility] (cerebrum) (cerebrum) 08-08 Tisha kes - 00:00: Medical 00 [place] Allergies, Adverse Reactions, Alerts Allergy Allergy Status Severity Reaction(s) Onset Inactive Treating Comm ents Source Name Type Date Date Clinician No Known DA Active U 2019-07 [facility] All[facility]ie 0-10 [place] 00:00: [address] Social History Social Habit Start Date Stop Date Quantity Comments Source Exposure to SARS-CoV-2 Not sure Slim dietz Denominational (event) Sex Assigned At [facility] Smoking Status Start Date Stop Date Source Never smoker [facility] Medications Ordered Filled Start Stop Current Ordering Indication Dosage Frequency Signature Comments Components Source Medication Medication Date Date Medication? Clinician (SIG) Name Name triamterene Yes 1{capsu QD Take [address] -hydroCHLOR 1-18 le} capsule by Tisha serrato - Othiazide 13:34: mouth Medical (Dyazide) 36 every Center 37.5-25 mg morning. per capsule isosorbide Yes 30mg QD Take [address] mononitrate 1-18 by mouth Miguel s - (IMDUR) 30 13:34: daily. Medic al MG 24 hr 36 Center tablet escitalopra Yes 10mg QD Take [address] m oxalate 1-18 by mouth [facility] - (LEXAPRO) 13:34: daily. Medica l 10 MG 36 Center tablet metFORMIN Yes 500mg Q.5D Take [address] (GLUCOPHAGE 1-18 mg by [facility] - ) 500 MG 13:34: mouth 2 Medica l tablet 36 (two) Center times daily . atorvastati Yes 40mg QD Take [address] n (LIPITOR) 1-18 by mouth Luke s - 40 MG 13:34: daily. Medical tablet 36 Center lisinopril- Yes 2{tbl} QD Take [address] hydroCHLORO 1-18 tablets by Tisha kes - thiazide 13:34: mouth Medical (PRINZIDE,Z 36 daily. Center ESTORETIC) 10-12.5 mg per tablet aspirin 81 Yes 81mg QD Take [address] MG chewable -18 by mouth Luke s - tablet 13:34: daily. Medical [address] [place] [address] clopidogreL Yes 75mg QD Take [address] (PLAVIX) 75 -18 by mouth Luke s - mg tablet 13:34: daily. Medica l 36 [place] acetaminoph 2021- No 650mg Take [address] en 1-18 08-05 tablets [facility] - (TYLENOL) 00:00: 23:59 (650 mg Medi orly 325 MG 00 :00 total) by Center tablet mouth every 6 (six) hours as needed for up to 360 days. lisinopriL 2020-0 Yes QD Take by [place] 10 mg -08 mouth Methodi tablet 1 12:15: daily. st tablet, 34 hydroCHLORO thiazide 25 MG tablet 0.5 tablet metFORMIN 2019-0 Yes 500mg Q.5D Take 500 Jennifer ston (GLUCOPHAGE 9-08 mg by Methodi ) 500 mg 12:15: mouth 2 st tablet 34 (two) times a day with meals. escitalopra 2020-0 Yes 10mg QD Take 10 mg Valderrama m (LEXAPRO) -08 by mouth Meth rj 10 MG 12:15: daily. st tablet 34 ascorbic 2020-0 Yes QD Take by Adrianato n acid - mouth Methodi (VITAMIN C 12:15: daily. st ORAL) 34 B Yes 1{tbl} QD Take 1 Valderrama complex-vit 03-31 tablet by Met cayla adams 12:15: mouth st C-folic 34 daily. acid-copper -zinc (FOLBEE PLUS 5 MG WITH COPPER AND ZINC) 5-1.5-25 mg tablet per tablet nutritional 2019- Yes Q.5D Take by Jennifer mckeon supplement- 03-31 mouth 2 Metho di fiber 12:15: (two) st liquid 34 times a day. Juice Plus UNABLE TO Yes QD Take by Carter on FIND 03-31 mouth Methodi 12:15: daily. st 34 Vitamin D3 Vital Signs Vital Name Observation Time Observation Value Comments Source Systolic blood 2020-08-10 12:00:00 128 mm[Hg] [facility] Diastolic blood 2020-08-10 12:00:00 60 mm[Hg] [facility] Heart rate 2020-08-10 12:00:00 56 /min [facility] Body temperature 2020-08-10 12:00:00 36.67 Judi [facility] Respiratory rate 2020-08-10 12:00:00 15 /min [facility] Oxygen saturation in 2020-08-10 12:00:00 96 /min [facility] Arterial blood by Medical Ce nter Pulse oximetry Body height 2020-08-08 20:45:00 162.6 cm [facility] Body weight 2020-08-08 20:45:00 67 kg [facility] BMI 2020-08-08 20:45:00 25.35 kg/m2 [facility] Body weight 2020-03-31 11:40:00 71.668 kg Lavelle Ivy Procedures Procedure Date / Time Performing Clinician Source Performed US BREAST COMPLETE 2020-11-24 11:41:36 Wil Avery on Denominational BILATERAL MAMMO BREAST DIAGNOSTIC 2020-11-24 11:13:00 Wil Averyist TOMOSYNTHESIS BILATERAL POCT-GLUCOSE METER 2020-08-10 11:06:00 Dallas Duran [facility] POCT-GLUCOSE METER 2020-08-10 07:23:00 Dallas Duran [facility] CBC W/PLT COUNT & AUTO 2020-08-10 03:21[facility] - DIFFERENTIAL [facility] BASIC METABOLIC PANEL 2020-08-10 03:20:00 [facility] - (7) [facility] POCT-GLUCOSE METER 2020-08-09 22:40:00 [facility] MR BRAIN WITHOUT IV 2020-08-09 16:52:00 LinnApril rooney [facility] - CONTRAST [facility] POCT-GLUCOSE METER 2020-08-09 10:39:00 [facility] B-TYPE NATRIURETIC 2020-08-09 09:52:00 Brian Banegas, [facility] - FACTOR (BNP) [facility] POCT-GLUCOSE METER 2020-08-09 07:30:00 [facility] IV 2020-08-09 06:06:00 Elder Akins [facility] St kes [facility] 2D ECHO W/ DOPPLER 2020-08-09 03:46:50 Darrel Ocampo [facility] L ukes - (CW/PW/COLOR) [facility] LIPID PANEL 2020-08-09 03:02:00 [facility] BASIC METABOLIC PANEL 2020-08-09 03:02:00 [facility], [facility] - (7) [facility] VITAMIN B12 AND FOLATE 2020-08-09 03:02:00 [facility] HEMOGLOBIN A1C 2020-08-09 03:02:00 [facility] TSH 2020-08-09 03:02:00 [facility], [facility] ABORH, MANUAL 2020-08-09 00:58:00 Sarita Yen [facility] SARS-COV2/RT-PCR ([facility] & 2020-08-08 23:42:00 Darrel Ocampo I [facility] - REF LABS) [facility] CBC W/PLT COUNT & AUTO 2020-08-08 23:42:00 Darrel Ocampo [facility] DIFFERENTIAL [facility] PROTHROMBIN TIME/INR 2020-08-08 23:42:00 [facility] APTT 2020-08-08 23:42:[address] [facility] FIBRINOGEN 2020-08-08 23:42:00 [facility] TYPE AND SCREEN, 2020-08-08 23:42:00 Darrel Ocampo [facility] es - AUTOMATED [facility] POCT-GLUCOSE METER 2020-08-08 23:24:00 Dallas Duran [facility] COMPREHENSIVE METABOLIC 2020-08-08 21:23:00 [place], CH I [facility] - PANEL [facility] TROPONIN I 2020-08-08 21:23:00 [facility], [facility] - [facility] MRI BREAST W WO CONTRAST 2020-03-31 12:22:02 Wil Avery BILATERAL POC CREATININE 2020-03-31 11:40:00 Wil Avery ESTIMATED GFR 2020-03-31 11:40:00 Wil Avery US BREAST COMPLETE LEFT 2020-03-24 11:53:42 Wil Avery MAMMO BREAST DIAGNOSTIC 2020-03-24 11:10:59 Wil Avery TOMOSYNTHESIS LEFT Plan of Care Planned Activity Planned Date Details Comments Source Future Scheduled 2022-11-24 BREAST CANCER Valderrama [facility] Test 00:00:00 SCREENING [code = BREAST CANCER SCREENING] Future Scheduled 2022-03-24 Screening for [facility] Leon es - Test 00:00:00 malignant neoplasm of Medica l Center breast (procedure) [code = 857792012] Future Scheduled 2021-03-[address] [facility] - Test 00:00:00 (Season Ended) [code = Medic al Center INFLUENZA VACCINE (Season Ended)] Future Scheduled 2021-02-21 INFLUENZA VACCINE [place] Test 00:00:00 [code = INFLUENZA VACCINE] Future Scheduled 2021-02-[address] Tisha kes - Test 00:00:00 measurement [facility] Center (procedure) [code = 00398054] Future Scheduled 2020-07-[address] [facility] - Test 00:00:00 (12+) [code = Medical Center DEPRESSION SCREENING (12+)] Future Scheduled 2012-07-[address] [facility] - Test 00:00:00 WELLNESS (YEAR 2 or Medical Center FIRST YEAR if no IPPE) [code = MEDICARE ANNUAL WELLNESS (YEAR 2 or FIRST YEAR if no IPPE)] Future Scheduled 2011 PNEUMOCOCCAL 65+ YRS [facility] - Test 00:00:00 (1 of 1 - Medical Center [id number]) [code = PNEUMOCOCCAL 65+ YRS (1 of 1 - [id number] PCV13)] Future Scheduled 1996 COLONOSCOPY SCREENING [place] [facility] Test 00:00:00 [code = COLONOSCOPY SCREENING] Future Scheduled 1996 SHINGLES VACCINES (#1) [place] Test 00:00:00 [code = SHINGLES VACCINES (#1)] Future Scheduled 1996 SHINGLES VACCINES ([address] [facility] - Test 00:00:00 of 2) [code = SHINGLES Medic al Center VACCINES (1 of 2)] Future Scheduled 1965 DTAP/TDAP/TD VACCINES [facility] - Test 00:00:00 (1 - Tdap) [code = Medical C enter DTAP/TDAP/TD VACCINES (1 - Tdap)] Future Scheduled 1964 Hepatitis C screening [place] Test 00:00:00 (procedure) [code = 063421423] Future Scheduled 1964 HEPATITIS C SCREENING [facility] - Test 00:00:00 [code = HEPATITIS C Medical Center SCREENING] Future Scheduled 1962 COVID-19 VACCINE (1) Jenniferalix mckeon [facility] Test 00:00:00 [code = COVID-19 VACCINE (1)] Future Scheduled 1956 DIABETES: RETINAL EYE [place] Test 00:00:00 EXAM [code = DIABETES: RETINAL EYE EXAM] Future Scheduled 1956 DIABETIC FOOT EXAM [place] Test 00:00:00 [code = DIABETIC FOOT EXAM] Future Scheduled 1956 URINE MICROALBUMIN [place] Test 00:00:00 [code = URINE MICROALBUMIN] Future Scheduled [address] DIABETIC EYE EXAM [facility] - Test 00:00:00 [code = DIABETIC EYE Medical Center EXAM] Future Scheduled [address] [facility] es - Test 00:00:00 examination Medical Center (regime/therapy) [code = 786188450] Future Scheduled 1956 Urine screening for [facility] - Test 00:00:00 protein (procedure) Medical Center [code = 567878203] Future Scheduled 1952 65+ PNEUMOCOCCAL Valderrama [facility]ational Test 00:00:00 VACCINE (1 of 2 - PPSV23) [code = 65+ PNEUMOCOCCAL VACCINE (1 of 2 - PPSV23)] Future Scheduled [address] [facility] es - Test 00:00:00 malignant neoplasm of Medica l Center colon (procedure) [code = 202512630] Encounters Start End Encounter Admission Attending Care Care Encounter Source Date/Time Date/Time Type Type Clinicians Facility Department ID 2020-11-24 2020-11-24 [facility]patient [facility] [id number] [place] 00:00:00 00:00:00 WIL [address] 2020-11-24 2020-11-24 Outpatient [facility] [id number] [place] 00:00:00 00:00:00 WIL [address] 2020-03-31 2020-03-31 Outpatient [facility] [id number] [place] 00:00:00 00:00:00 WIL [address] 2020-03-24 2020-03-24 Outpatient [facility] [id number] [place] 00:00:00 00:00:00 WIL [facility] 2020-03-24 2020-03-24 Outpatient COSELLI, [facility] [id number] [place] 00:00:00 00:00:00 WIL 435 Method i 2019-09-27 2019-09-27 Outpatient COSELLI, [facility] [id number] [place] 00:00:00 00:00:00 WIL [address] 2019-09-27 2019-09-27 Outpatient COSELLI, [facility] [id number] [place] 00:00:00 00:00:00 WIL 545 Method i 2019-09-27 2019-09-27 Outpatient COSELLI, [facility] [id number] [place] 00:00:00 00:00:00 WIL 595 Method i 2019-09-27 2019-09-27 Outpatient COSELLI, [facility] [id number] [place] 00:00:00 00:00:00 WIL 667 Method i 2019-09-27 2019-09-27 Outpatient COSELLI, [facility] [id number] [place] 00:00:00 00:00:00 WIL 733 Method i 2019-09-27 2019-09-27 Outpatient COSELLI, [facility] [id number] [place] 00:00:00 00:00:00 WIL 220 Method i 2019-04-12 2019-05-13 Outpatient [facility] [id number] [facility] 12:29:00 23:59:00 DASHA Culp Medic al Center Results Test Description Test Time Test Comments Results Result [facility] e Comments US Breast Complete Hm Interface, Jennifer ston Bilateral [address] 12:01:11 - 11/24/2020 12:04 PM CDT PROCEDURE:B ilateral Tomosynthesis Diagnostic Mammogram, Bilateral Breast UltrasoundHISTORY:Mike marti is 75 years old and is seen for diagnostic evaluation. The patient has the following family history of breast cancer: sister, at age 65, breast cancer. The patient has no current palpable breast complaints.FILMS COMPARED:The present examination has been compared to prior imaging studies dated 06/19/2019, 09/27/2019 and 03/24/2020.MAMMOGRAM FINDINGS:There are scattered areas of fibroglandular densities.There is a stable asymmetry in the upper outer quadrant of the left breast. Finding remains unchanged from the prior study. The asymmetry seen in the inferomedial aspect of the left breast is much less apparent today.No suspicious masses, calcifications or other abnormalities are seen.ULTRASOUND FINDINGS:Bilateral real-time whole breast sonography included all four quadrants and the retroareolar regions under close supervision by the radiologist.There is no evidence of any solid mass or cystic masses of concern. Left breast asymmetry seen on previous ultrasound around 10-11 o'clock is unchanged. This asymmetry appears to be hypoechoic without well-defined margins and with no evidence of any vascular flow. Largest dimension 12 mm.IMPRESSION:There is no mammographic or sonographic evidence of malignancy.Continued monitoring of the clinical examination and annual mammography in 1 year is recommended.Findings and recommendations were discussed with the patient at the time of the examination.BI-RADS Category 2:Benign Finding(s)Workstatio n Name: [id number] NEGATIVE X-RAY REPORT SHOULD NOT DELAY BIOPSY IF A DOMINANT OR CLINICALLY SUSPICIOUS MASS IS PRESENT. NOT ALL CANCERS ARE IDENTIFIED BY X-RAY. Mammo Breast [facility] Diagnostic [address] Tomosynthesis 12:01:11 Incoming - Bilateral 11/24/2020 12:04 PM CDT PROCEDURE:B ilateral Tomosynthesis Diagnostic Mammogram, Bilateral Breast UltrasoundHISTORY:Mike marti is 75 years old and is seen for diagnostic evaluation. The patient has the following family history of breast cancer: sister, at age 65, breast cancer. The patient has no current palpable breast complaints.FILMS COMPARED:The present examination has been compared to prior imaging studies dated 06/19/2019, 09/27/2019 and 03/24/2020.MAMMOGRAM FINDINGS:There are scattered areas of fibroglandular densities.There is a stable asymmetry in the upper outer quadrant of the left breast. Finding remains unchanged from the prior study. The asymmetry seen in the inferomedial aspect of the left breast is much less apparent today.No suspicious masses, calcifications or other abnormalities are seen.ULTRASOUND FINDINGS:Bilateral real-time whole breast sonography included all four quadrants and the retroareolar regions under close supervision by the radiologist.There is no evidence of any solid mass or cystic masses of concern. Left breast asymmetry seen on previous ultrasound around 10-11 o'clock is unchanged. This asymmetry appears to be hypoechoic without well-defined margins and with no evidence of any vascular flow. Largest dimension 12 mm.IMPRESSION:There is no mammographic or sonographic evidence of malignancy.Continued monitoring of the clinical examination and annual mammography in 1 year is recommended.Findings and recommendations were discussed with the patient at the time of the examination.BI-RADS Category 2:Benign Finding(s)Workstatio n Name: [id number] NEGATIVE X-RAY REPORT SHOULD NOT DELAY BIOPSY IF A DOMINANT OR CLINICALLY SUSPICIOUS MASS IS PRESENT. NOT ALL CANCERS ARE IDENTIFIED BY X-RAY. POC-Glucose meter 2020-08-10 11:20:00 Test Item Value Reference Range Interpretation Comme nts POC-Glucose Meter (test code = 144 mg/dL 70-110 H : TESTED AT [facility] [address], [facility] 30: Lunch Wagon Operator/Techni john ID = [id number] for MARIAMA LOCKHART Lab Interpretation (test code = Abnormal 70278-5) [facility] [id number] 11:20:00 Test Item Value Reference Range Interpretation Comments POC-GLUCOSE METER 144 mg/dL 70-110 H : TESTED A T [facility] [address] (BEAKER) (test code = [facility], 1538) [address]: Lunch Wagon Operator/Techni john ID = [id number] for LE IJA, AURA POCT-GLUCOSE [id number] 07:36:00 Test Item Value Reference Range Interpretation Comments POC-GLUCOSE METER 125 mg/dL 70-110 H : TESTED A T [facility] 6720 (BEAKER) (test code = [facility], [facility]8) [address]: Lunch Wagon Operator/Techni john ID = [id number] for LE IJA, AURA Basic Metabolic [id number] 04:00:00 Test Item Value Reference Range Interpretation Comments Sodium (test code = 141 meq/L 451-105 5656-2) Potassium (test code = 3.7 meq/L 3.5-5.1 2823-3) Chloride (test code = 107 meq/L 98-107 2075-0) CO2 (test code = 25 meq/L 22-29 8-9) BUN (test code = 18 mg/dL 7-21 3094-0) Creatinine (test code 0.82 mg/dL 0.57-1.25 = 2160-0) Glucose (test code = 136 mg/dL 70-105 H 2345-7) Calcium (test code = 9.1 mg/dL 8.4-10.2 67901-1) EGFR (test code = 68 mL/min/1.73 [place] [address]-7) NOT ACCURATE CREATININE CLEARANCE IN PREDICTING GLOMERULAR FILTRATION RATE . ESTIMATED GFR I S NOT APPLICABLE FOR DIALYSIS PATIENTS. 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 ID - [id number] Lab Interpretation Abnormal (test code = 84708-8) [facility] METABOLIC [id number] 04:00:00 Test Item Value Reference Range Interpretation Comments SODIUM (BEAKER) 141 meq/L 136-145 (test code = 381) POTASSIUM (BEAKER) 3.7 meq/L 3.5-5.1 (test code = 379) CHLORIDE (BEAKER) 107 meq/L 98-107 (test code = 382) CO2 (BEAKER) (test 25 meq/L 22-29 code = 355) BLOOD UREA NITROGEN 18 mg/dL 7-21 (BEAKER) (test code = 354) CREATININE (BEAKER) 0.82 mg/dL 0.57-1.25 (test code = 358) GLUCOSE RANDOM 136 mg/dL 70-105 H (BEAKER) (test code = 652) CALCIUM (BEAKER) 9.1 mg/dL 8.4-10.2 (test code = 697) EGFR (BEAKER) (test 68 mL/min/1.73 ESTIMA PABLO GFR IS code = 1092) sq m NOT ACCURATE CREATININE CLEARANCE IN PREDICTING GLOMERULAR FILTRATION RATE . ESTIMATED GFR I S NOT APPLICABLE FOR DIALYSIS PATIEN TS. Lunch Wagon Operator ID - [id number] LCBC with platelet count + automated [id number] 03:35:00 Test Item Value Reference Range Interpretation Comments WBC (test code = 6690-2) 4.5 See_Comment [A utomated message] The system ezeep generated this result transmitted ref erence range: 3.5 - 10 .5 K/L. The refe rence range was not u sed to interpret this result as normal/abnor mal. RBC (test code = 789-8) 3.89 See_Comment L [Au tomated message] The system ezeep generated this result transmitted ref erence range: 3.93 - 5 .22 M/L. The refe rence range was not u sed to interpret this result as normal/abnor mal. MCHC (test code = 786-4) 32.9 See_Comment [A utomated message] The system ezeep generated this result transmitted ref erence range: 32.2 - 3 5.5 GM/DL. The refe rence range was not u sed to interpret this result as normal/abnor mal. Hematocrit (test code = 35.0 % 34.1-44.9 4544-3) MCV (test code = 787-2) 90.0 fL 79.4-94.8 MCH (test code = 785-6) 29.6 pg 25.6-32.2 RDW (test code = 788-0) 13.2 % 11.7-14.4 Platelets (test code = 199 See_Comment [Aut omated message] 777-3) The system ezeep generated this result transmitted ref erence range: 150 - 45 0 K/CU MM. The referen ce range was not u sed to interpret this result as normal/abnor mal. MPV (test code = 11.4 fL 9.4-12.3 43949-8) nRBC (test code = 413) 0 See_Comment [Aut omated message] The system ezeep generated this result transmitted ref erence range: 0 - 0 /1 00 WBC. The refere nce range was not u sed to interpret this result as normal/abnor mal. % Neutros (test code = 53 % 429) % Lymphs (test code = 32 % 430) % Monos (test code = 10 % 431) % Eos (test code = 432) 4 % % Baso (test code = 437) 1 % # Neutros (test code = 2.40 See_Comment [Aut omated message] 670) The system ezeep generated this result transmitted ref erence range: 1.56 - 6 .13 K/L. The refe rence range was not u sed to interpret this result as normal/abnor mal. # Lymphs (test code = 1.43 See_Comment [Auto mated message] 414) The system ezeep generated this result transmitted ref erence range: 1.18 - 3 .74 K/L. The refe rence range was not u sed to interpret this result as normal/abnor mal. # Monos (test code = 0.45 See_Comment H [Autom ated message] 415) The system ezeep generated this result transmitted ref erence range: 0.24 - 0 .36 K/L. The refe rence range was not u sed to interpret this result as normal/abnor mal. # Eos (test code = 416) 0.17 See_Comment [Au tomated message] The system ezeep generated this result transmitted ref erence range: 0.04 - 0 .36 K/L. The refe rence range was not u sed to interpret this result as normal/abnor mal. # Baso (test code = 417) 0.06 See_Comment [A utomated message] The system ezeep generated this result transmitted ref erence range: 0.01 - 0 .08 K/L. The refe rence range was not u sed to interpret this result as normal/abnor mal. Immature 0 % 0-1 Granulocytes-Relative (test code = 2801) Lab Interpretation (test Abnormal code = 07822-6) [facility] W/PLT COUNT & AUTO [id number] 03:35:00 Test Item Value Reference Range Interpretation Comments WHITE BLOOD CELL COUNT (BEAKER) 4.5 K/ L 3.5-10.5 (test code = 775) RED BLOOD CELL COUNT (BEAKER) 3.89 M/ L 3.93-5.22 L (test code = 761) HEMOGLOBIN (BEAKER) (test code = 11.5 GM/DL 11.2-15.7 410) HEMATOCRIT (BEAKER) (test code = 35.0 % 34.1-44.9 411) MEAN CORPUSCULAR VOLUME (BEAKER) 90.0 fL 79.4-94.8 (test code = 753) MEAN CORPUSCULAR HEMOGLOBIN 29.6 pg 25.6-32.2 (BEAKER) (test code = 751) MEAN CORPUSCULAR HEMOGLOBIN CONC 32.9 GM/DL 32.2-35.5 (BEAKER) (test code = 752) RED CELL DISTRIBUTION WIDTH 13.2 % 11.7-14.4 (BEAKER) (test code = 412) PLATELET COUNT (BEAKER) (test 199 K/CU MM 150-450 code = 756) MEAN PLATELET VOLUME (BEAKER) 11.4 fL 9.4-12.3 (test code = 754) NUCLEATED RED BLOOD CELLS 0 /100 WBC 0-0 (BEAKER) (test code = 413) NEUTROPHILS RELATIVE PERCENT 53 % (BEAKER) (test code = 429) LYMPHOCYTES RELATIVE PERCENT 32 % (BEAKER) (test code = 430) MONOCYTES RELATIVE PERCENT 10 % (BEAKER) (test code = 431) EOSINOPHILS RELATIVE PERCENT 4 % (BEAKER) (test code = 432) BASOPHILS RELATIVE PERCENT 1 % (BEAKER) (test code = 437) NEUTROPHILS ABSOLUTE COUNT 2.40 K/ L 1.56-6.13 (BEAKER) (test code = 670) LYMPHOCYTES ABSOLUTE COUNT 1.43 K/ L 1.18-3.74 (BEAKER) (test code = 414) MONOCYTES ABSOLUTE COUNT (BEAKER) 0.45 K/ L 0.24-0.36 H (test code = 415) EOSINOPHILS ABSOLUTE COUNT 0.17 K/ L 0.04-0.36 (BEAKER) (test code = 416) BASOPHILS ABSOLUTE COUNT (BEAKER) 0.06 K/ L 0.01-0.08 (test code = 417) IMMATURE GRANULOCYTES-RELATIVE 0 % 0-1 PERCENT (BEAKER) (test code = 2801) POCT-GLUCOSE [id number] 22:52:00 Test Item Value Reference Range Interpretation Comments POC-GLUCOSE METER 158 mg/dL 70-110 H : TESTED A T [facility] 6720 (BEAKER) (test code [facility], = 1538) [address]: Lunch Wagon Operator/Techni john ID = [id number] for AMITA MAGALLANES 2D Echo W/Doppler(CW/PW/Color)2020-08-09 16:59:42Ejection FractionSLEH ECHO HEARTLAB MKCKESSON CPACSInterface, External Ris In - 08/09/2020 4:59 PM C STTransthoracic Echocardiography Report (TTE) Demographics Patient Name JOSEY, Date of Study 08/09/2020 GERRY Gender Female Visit Number [id number] Race Unknown Room Number 7401 Number Date of 1945 Referring Physician George Castro Age 75 year(s) 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 Amount- 20 mlHeight: 64 inches Weight: 66.68 kg (147 lbs) BSA: 1.72 m^2 BMI: 25.23 kg/m^2HR: 52 bpm BP: 128/55 mmHg Summary Normal left ventricular chamber size. Normal wall thickness. Normal overall left ventricular systolic function. No apparent segmental wall motion abnormalities. Estimated LVEF by qualitative assessment is normal (>60%) . Grade 1 diastolic dysfunction (impaired relaxation and low-normal LA pressure). A trace of tricuspid regurgitation. Unable to estimate peak systolic PA pressure; inadequate TR velocity signal. IV saline contrast injection was negative for a PFO (patent foramen ovale) post Valsalva . A negative IV agitated saline study does not definitively rule out a PFO in situations of poor patient Valsalva effort (and high LA pressure), excessive competitive IVC venous flow not visible on TTE and with tiny defects. TTE and KATIE may be complementary for inconclusive studies when PFO detection is clinically relevant. PFO's are a normal variant finding in at least 30% of individuals. Signature Findings Left Ventricle Normal left ventricular chamber size. Normal wall thickness. Normal overall left ventricular systolic function. No apparent segmental wall motion abnormalities. Estimated LVEF by qualitative assessment is normal (>60%) . Grade 1 diastolic dysfunction (impaired relaxation and low-normal LA pressure). Left Atrium LA size is normal . Right Ventricle Normal right ventricle structure and function. Right Atrium Normal right atrium. Atrial Septum IVsaline contrast injection was negative for a PFO (patent foramen ovale) post Valsalva . A negative IV agitated saline study does notdefinitively rule out a PFO in situations of poor patient Valsalva effort (and high LA pressure), excessive competitive IVC venous flow not visible on TTE and with tiny defects. TTE and KATIE may be complementaryfor inconclusive studies when PFO detection is clinically relevant. PFO's area normal variant finding in at least 30% of individuals. Aortic Valve Normal AoV structure and function. Mitral Valve Mild MV leaflet thickening. Tricuspid Valve A trace of tricuspid regurgitation. Unable to estimate peak systolic PA pressure; inadequate TR velocity signal. Pulmonic Valve Normal PV structure and function by limited views and Doppler. Aorta Aortic root size (SInus of Valsalva diameter) is nor mal . Pericardium No evidence of pericardial effusion. IVC/SVC/PA/PV/Pleural The estimated RA pressure by IVC dynamics 5-10mmHg . Chambers/Structures Left Atrium LA Volume: 55.54 ml LA Vol. Index: 32 ml/m^2 Left Ventricle LVIDd: 3.88 cm LVEDV:65.08 ml LV Septum Diastolic: 0.82 cm LV PW Diastolic: 0.78 cm LVEDV Valentin's:97.62 mlLVESV Valentin's:32.33 ml LVEF Valentin's: 66.9 % LVEDVI: 57 ml/m^2 LVESVI: 19 ml/m^2 LVOT Diameter: 2 cm Doppler/Quantitative Measurements Mitral Valve MV Peak E-Wave: 0.65 m/s MV Peak A-Wave: 0.79 m/s E/A Ratio: 0.83 Peak Gradient: 1.7 mmHg Deceleration Time: 284.6 msec MV Esa. Peak: Tissue Doppler E' Lateral Velocity: 0.06 m/s A' Lateral Velocity: 0.09 m/s E/E': 10.35 Aortic Valve Peak Velocity: 1.45 m/s Mean Velocity: 0.99 m/s Peak Gradient: 8.46 mmHg Mean Gradient: 4.41 mmHg AV Area (continuity): 2.25 cm^2 AV VTI:39.62 cm AV DVI: 0.72 LVOT Peak Velocity: 1.07 m/s Peak Gradient: 4.62 mmHg Mean Velocity: 0.79 m/s Mean Gradient: 2.79 mmHg LVOT Diameter: 2 cm LVOT VTI: 28.39 cm LVOT Area: 3.14 cm^2 LVOT SV:89.14 ml LVOT CO: 4.64 l/min LVOT CI: 2.7 l/min/m^[address] [place], [place] [address]MR brain without IV [id number] 16:50:00Interface, External Ris In - 08/09/2020 4:53 PM CSTFINAL REPORT MR, BRAIN, WITHOUT CONTRAST INDICATION: Stroke, follow up TECHNIQUE: Multiplanar, multisequence MR imaging of thebrain without intravenous contrast. COMPARISON: None FINDINGS: There is no restricted diffusion. Mild volume loss. Minimal white matter disease. Otherwise no focal signal abnormality. There is no masseffect or abnormal extra-axial fluid. The ventricles are normal in size and configuration. The larger intracranial vascular flow-voids are preserved. Right mastoid effusion. Paranasal sinuses are otherwise clear. There is normal bone marrow signal intensity within the calvarium and skull base. IMPRESSION: Age-appropriate noncontrast MRI of the brain. No diffusion restriction. Right mastoid effusion.Signed: JR Leija Robert MDReport Verified Date/Time: 08/09/2020 16:50:49 Reading Location: [address] Neuro Reading [facility], [facility], WITHOUT [id number] 16:50:00Unlisted Reason for Exam - Click Yes and Enter Reason Below->NoDeos the patient have an implantedelectronic device?->NoADVENTIST HEALTH TEHACHAPIName: GERRY DOWLING : 1945 Sex: FFINAL REPORT MR, BRAIN, WITHOUT CONTRAST INDICATION: Stroke, follow up TECHNIQUE: Multiplanar, multisequence MR imaging of the brain without intravenous contrast. COMPARISON: None FINDINGS: There is no restricted diffusion. Mild volume loss. Minimal white matter disease. Otherwise no focal signal abnormality. There is no mass effect or abnormal extra-axial fluid. The ventricles are normal in size and configuration. The larger intracranial vascular flow-voids are preserved. Right mastoid effusion. Paranasal sinuses are otherwise clear. There is normal bone marrow signalintensity within the calvarium and skull base. IMPRESSION: Age-appropriate noncontrast MRI of the br ain. No diffusion restriction. Right mastoid effusion. Signed: JR Leija Robert MDReport Verified Date/Time: 08/09/2020 16:50:49 Reading Location: [address] Neuro Reading Room SARS-CoV2/RT-PCR (Asymptomatic ONLY)2020-08-09 13:04:00 Test Item Value Reference Range Interpretation Comments SARS-COV2/RT-PCR Negative Not Detected, (test code = Negative, See 87722-0) external report for linked test SARS-COV-2 [facility] PERFORMING LAB (test code = 99770-0) SANDRA (test code = Negative result for this SANDRA) test determines that SARS-CoV-2 RNA was not present in the specimen above the Limit of Detection (LOD). However, Negative results do not preclude SARS-CoV-2 infection and should not be used as the sole basis for treatment or patient management decisions. Negative results must be combined with clinical observations, patient history, and epidemiological information. A false negative result may occur if a specimen is improperly collected, transported or handled. A false negative result should be considered if patient's recent exposures or clinical presentation indicate that COVID-19 (SARS-CoV-2) is likely and diagnostic tests for other causes of illness are negative. Re-testing should be considered in cases of suspected false negatives. The limit of detection for this assay is 800 copies/mL. This SARS CoV-2 test is a real-time RT-PCR test intended for the qualitative detection of nucleic acid from SARS-CoV-2 in a nasopharyngeal swab specimen collected from individuals suspected of COVID-19 by their healthcare provider. This test has not been Food and Drug Administration (FDA) cleared or approved. This is a modified version of an approved Emergency Use Authorization (EUA) and is in the process of review by the FDA. Once authorized by the FDA, the issued EUA will be effective until the declaration that circumstances exist justifying the authorization of the emergency use of in vitro diagnostic tests for detection and/or diagnosis of COVID-19 is terminated under Section 564(b)(2) of the Act or the EUA is revoked under Section 564(g) of the Act. Fact Sheet for Healthcare Providers:https://www.[employer]/sites/default/f grey/product/documents/F act_Sheet_HC_Providers_L mbo_AEIT-SzJ-6.pdf Fact Sheet for Healthcare Patients:https://www.[employer]/sites/default/fi les/product/documents/Fa ct_Sheet_Patients_Lyra_S ARS-CoV-2.pdf Performing Laboratory:[facility] [place], [place] [address]najma [facility].[place], [place] [address] [place], [place] [address]ARS-COV2/RT-PCR ([facility])2020-08-09 13:04:00 Test Item Value Reference Range Interpretation Comments SARS-COV2/RT-PCR (test Negative Not Detected, Negative, code = 3213528) See external report for linked test SARS-COV-2 PERFORMING LAB [facility] (test code = 8751493) Negative result for this test determines that SARS-CoV-2 RNA was not present in the specimen above the Limit of Detection (LOD). However, Negative results do not preclude SARS-CoV-2 infection and should not be used as the sole basis for treatment or patient management decisions. Negative results mustbe combined with clinical observations, patient history, and epidemiological information. A false negative result may occur if a specimen is improperly collected, transported or handled. A false negative result should be considered if patient's recent exposures or clinical presentation indicate that COVID-19 (SARS-CoV-2) is likely and diagnostic tests for other causes of illness are negative. Re-testing should be considered in cases of suspected false negatives.The limit of detection for this assay is 800 copies/mL.This SARS CoV-2 test is a real-time RT-PCR test intended for the qualitative detection of nucleic acid from SARS-CoV-2 in a nasopharyngeal swab specimen collected from individuals susp ected of COVID-19 by their healthcare provider.This test has not been Food and Drug Administration (FDA) cleared or approved. This is a modified version of an approved Emergency Use Authorization (EUA) and is in the process of review by the FDA. Once authorized by the FDA, the issued EUA will be effective until the declaration that circumstances exist justifying the authorization of the emergency use of in vitro diagnostic tests for detection and/or diagnosis of COVID-19 is terminated under Section 564(b)(2) of the Act or the EUA is revoked under Section 564(g) of the Act.Fact Sheet for Healthcare Providers:https://www.[employer]/sites/default/files/product/documents/Fact_Shee t_WZ_Eqtqtgffr_Emrq_UEGN-GjA-3.pdfFact Sheet for Healthcare Patients:https://www.[employer]/sites/default/files/product/ documents/Wfgj_Furno_Sltyaxmp_Ixfj_HSRK-FwJ-0.pdfPerforming Laboratory:[facility], [place] [address]Mmnltrjfce A1c 2020-08-09 11:59:00 Test Item Value Reference Range Interpretation Comments Hemoglobin A1C (test code = 4548-4) 7.5 % 4.3-6.1 H Lab Interpretation (test code = Abnormal 29864-1) [facility]HEMO[facility] [id number] 11:59:00 Test Item Value Reference Range Interpretation Comments HEMOGLOBIN A1C (BEAKER) (test code = 7.5 % 4.3-6.1 H 368) POCT-GLUCOSE [id number] 10:50:00 Test Item Value Reference Range Interpretation Comments POC-GLUCOSE METER 176 mg/dL 70-110 H : TESTED A T [facility] 6720 (BEAKER) (test code = [facility], 1538) [address]: Lunch Wagon Operator/Techni john ID = [id number] for JEANETH THOMAS B-type Natriuretic Factor (BNP)2020-08-09 10:29:00 Test Item Value Reference Range Interpretation Comments BNP (test code = 33014-4) 34 pg/mL 0-100 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 ID - DESTINY L Lab Interpretation (test Normal code = 23567-2) [facility] HospitalB-[facility] NATRIURETIC FACTOR (BNP)2020-08-09 10:29:00 Test Item Value Reference Range Interpretation Comments B-TYPE NATRIURETIC PEPTIDE (BEAKER) 34 pg/mL 0-100 (test code = 700) Lunch Wagon Operator HAYES DIXON LPOCT-GLUCOSE [id number] 07:43:00 Test Item Value Reference Range Interpretation Comments POC-GLUCOSE METER 129 mg/dL 70-110 H : TESTED A T [facility] 6720 (BEAKER) (test code = [facility], 1538) [address]: Lunch Wagon Operator/Techni john ID = [id number] for JEANETH THOMAS Vitamin B12 and [id number] 06:53:00 Test Item Value Reference Range Interpretation Comments Vitamin B12 (test <146 213-816 L code = 2132-9) Folate (test code = 11.60 ng/mL See_Comment [Automa pablo 2284-8) message] The system which generated this result transmitted reference range : >=7.00. The reference range was not used to interpret this result as normal/abnormal . SADNRA (test code = SANDRA) Lunch Wagon Operator ID - DESTINY DIXON L Lab Interpretation Abnormal (test code = 21704-3) [facility] HospitalVITAMIN B12 AND [id number] 06:53:00 Test Item Value Reference Range Interpretation Comments VITAMIN B12 (BEAKER) (test code = < pg/mL 213-816 L 774) FOLATE (BEAKER) (test code = 362) 11.60 ng/mL >=7.00 Lunch Wagon Operator HAYES DIXON LCT BRAIN WITHOUT IV CONTRAST - [id number] 06:34:00Unlisted Reason for Exam - Click Yes and Enter Reason Below->YesUnlisted Reason for Exam->stroke [facility] : 1945 Sex: FFINAL REPORT CT Head without contrast CLINICAL HISTORY: Cerebral hemorrhage suspectedstroke TECHNIQUE: Contiguous axial images through the head without contrast on the portable CT unit. This exam was performed according to the departmental dose optimization program which includes automated exposure control, adjustment of the mA and/or kV according to the patient size, and/or use of an iterative reconstruction technique. COMPARISON: August 08, 2020, seven hours prior Impression: The portable head CT technique reveals trace subarachnoid hemorrhage within the left frontalsulci. Findings are less conspicuous on the current examination which may be due to less sensitive po rtable technique or interval reduction in hemorrhage. No detrimental interval change. No hydrocephalus, mass or midline shift. Remainder of the examination is stable. Signed: Aiden Jameson MDReport Verified Date/Time: 08/09/2020 06:34:14 CT brain without IV contrast [id number] 06:34:00Interface, External Ris In - 08/09/2020 6:[address] Head without contrast CLINICAL HISTORY: Cerebral hemorrhage suspectedstroke TECHNIQUE: Contiguous axial imagesthrough the head without contrast on the portable CT unit. This exam was performed according to the departmental dose optimization program which includes automated exposure control, adjustment of the mA and/or kV according to the patient size, and/or use of an iterative reconstruction technique. COMPARISON: August 08, 2020, seven hours prior Impression: The portable head CT technique reveals trace subarachnoid hemorrhage within the left frontal sulci. Findings are less conspicuous on the current exa mination which may be due to less sensitive portable technique or interval reduction in hemorrhage. No detrimental interval change. No hydrocephalus, mass or midline shift. Remainder of the examinationis stable. Signed: Aiden Jamesonepmeghan Verified Date/Time: 08/09/2020 06:34:14 [facility] [id number] 04:52:00 Test Item Value Reference Range Interpretation Comments Triglycerides (test 99 mg/dL code = 2571-8) Cholesterol (test code 114 mg/dL = 2093-3) HDL (test code = 29 mg/dL 5-9) LDL Calculated (test 65 mg/dL code = 67120-9) SANDRA (test code = SANDRA) Triglyceride Reference Range: Low Risk <150 Borderline 150-199 High Risk 200-499 Very High Risk >=500 Cholesterol Reference Range: Low Risk <200 Borderline 200-239 High Risk >240 HDL Cholesterol Reference Range: Low Risk >=60 High Risk <40 LDL Cholesterol Reference Range: Optimal <100 Near Optimal 100-129 Borderline 130-159 High 160-189 Very High >=190 Lunch Wagon Operator HAYES Rosenthal [facility]OL[facility] [id number] 04:52:00 Test Item Value Reference Range Interpretation Comments SODIUM (BEAKER) 140 meq/L 136-145 (test code = 381) POTASSIUM (BEAKER) 3.7 meq/L 3.5-5.1 (test code = 379) CHLORIDE (BEAKER) 107 meq/L 98-107 (test code = 382) CO2 (BEAKER) (test 24 meq/L 22-29 code = 355) BLOOD UREA NITROGEN 25 mg/dL 7-21 H (BEAKER) (test code = 354) CREATININE (BEAKER) 0.92 mg/dL 0.57-1.25 (test code = 358) GLUCOSE RANDOM 128 mg/dL 70-105 H (BEAKER) (test code = 652) CALCIUM (BEAKER) 8.9 mg/dL 8.4-10.2 (test code = 697) EGFR (BEAKER) (test 60 mL/min/1.73 ESTIMA PABLO GFR IS code = 1092) sq m NOT ACCURATE CREATININE CLEARANCE IN PREDICTING GLOMERULAR FILTRATION RATE . ESTIMATED GFR I S NOT APPLICABLE FOR DIALYSIS PATIEN TS. Lunch Wagon Operator ID - DESTINY JUDY [id number] 04:52:00 Test Item Value Reference Range Interpretation Comments TRIGLYCERIDES (BEAKER) (test code = 99 mg/dL 540) CHOLESTEROL (BEAKER) (test code = 114 mg/dL 631) HDL CHOLESTEROL (BEAKER) (test code 29 mg/dL = 976) LDL CHOLESTEROL CALCULATED (BEAKER) 65 mg/dL (test code = 633) Triglyceride Reference Range: Low Risk <150 Borderline 150-199 High Risk 200-499 Very High Risk >=500Cholesterol Reference Range: Low Risk <200 Borderline 200-239 High Risk >240HDL Cholesterol Reference Range: Low Risk >=60 High Risk <40LDL Cholesterol Reference Range: Optimal <100 Near Optimal 100-129 Borderline 130-159 High 160-189 Very High >=190 Lunch Wagon Operator ID - [id number] 04:40:00 Test Item Value Reference Range Interpretation Comments TSH (test code = 1.676 See_Comment [Automated 47311-5) message] The system which generated this result transmit pablo reference range : 0.350 - 4.940 uIU/mL. The reference range was not used to interpret this result as normal/abnormal . 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 ID - DESTINY L Lab Interpretation Normal (test code = 42630-2) [facility] HospitalTSH2021-01-[facility] 04:40:00 Test Item Value Reference Range Interpretation Comments THYROID STIMULATING HORMONE 1.676 uIU/mL 0.350-4.940 (BEAKER) (test code = 772) Lunch Wagon Operator ID - DESTINY CARDOSO, [id number] 03:58:00 Test Item Value Reference Range Interpretation Comments ABO Grouping (test code = 2588) O Rh Factor (test code = 2589) POS [facility] HospitalType and screen, [id number] 01:08:00 Test Item Value Reference Range Interpretation Comments ABO/RH AUTOMATED (BEAKER) (test O POSITIVE code = 2260) Ab Scrn (test code = 890-4) NEGATIVE [facility] HospitalFibrinogen2021-01-17 00:10:00 Test Item Value Reference Range Interpretation Comments Fibrinogen (test code = 3255-7) 214 mg/dl 225-434 L Lab Interpretation (test code = Abnormal 29035-2) [facility] HospitalProthromin time/[id number] 00:10:00 Test Item Value Reference Interpretation Comments Range Protime (test code = 13.9 See_Comment [Autom ated 5902-2) message] The system which generated this result transmitted reference range : 11.9 - 14.2 seconds. The reference range was not used to interpret this result as normal/abnormal . INR (test code = 1.11 See_Comment [Automated 1691-6) message] The system which generated this result transmitted reference range : <=5.90. The reference range was not used to interpret this result as normal/abnormal . SANDRA (test code = Effective 12/19/2018: SANDRA) PT Reference Range ChangeNew: 11.9-14.2 Previous: 11.7-14.7 RECOMMENDED COUMADIN/WARFARIN INR THERAPY RANGESSTANDARD DOSE: 2.0-3.0 Includes: PROPHYLAXIS for venous thrombosis, systemic embolization; TREATMENT for venous thrombosis and/or pulmonary embolus.HIGH RISK: Target INR is 2.5-3.5 for patients wiht mechanical heart valves. Lab Interpretation Normal (test code = 74442-4) [facility] HospitalaPTT2021-01-17 00:10:00 Test Item Value Reference Range Interpretation Comments PTT (test code = 66495-1) 28.0 See_Comment [ Automated message] The system whic h generated this result transmitted ref erence range: 22.5 - 3 6.0 seconds. The re ference range was not u sed to interpret this result as normal/abnor mal. Lab Interpretation (test Normal code = 70827-8) [facility] HospitalPROTHROMBIN TIME/[id number] 00:10:00 Test Item Value Reference Range Interpretation Comments PROTIME (BEAKER) (test code = 13.9 seconds 11.9-14.2 759) INR (BEAKER) (test code = 370) 1.11 <=5.90 Effective 12/19/2018: PT Reference Range ChangeNew: 11.9-14.2 Previous: 11.7- 14.7RECOMMENDED COUMADIN/WARFARIN INR THERAPY RANGESSTANDARD DOSE: 2.0-3.0 Includes: PROPHYLAXIS for venous thrombosis, systemic embolization; TREATMENT for venous thrombosis and/or pulmonary embolus.HIGH RISK: Target INR is2.5-3.5 for patients wiht mechanical heart valves.[id number] 00:10:00 Test Item Value Reference Range Interpretation Comments PARTIAL THROMBOPLASTIN TIME 28.0 seconds 22.5-36.0 (BEAKER) (test code = 760) [id number] 00:10:00 Test Item Value Reference Range Interpretation Comments FIBRINOGEN LEVEL (BEAKER) (test 214 mg/dl 225-434 L code = 658) CBC W/PLT COUNT & AUTO [id number] 00:00:00 Test Item Value Reference Range Interpretation Comments WHITE BLOOD CELL COUNT (BEAKER) 6.5 K/ L 3.5-10.5 (test code = 775) RED BLOOD CELL COUNT (BEAKER) 3.67 M/ L 3.93-5.22 L (test code = 761) HEMOGLOBIN (BEAKER) (test code = 10.8 GM/DL 11.2-15.7 L 410) HEMATOCRIT (BEAKER) (test code = 33.8 % 34.1-44.9 L 411) MEAN CORPUSCULAR VOLUME (BEAKER) 92.1 fL 79.4-94.8 (test code = 753) MEAN CORPUSCULAR HEMOGLOBIN 29.4 pg 25.6-32.2 (BEAKER) (test code = 751) MEAN CORPUSCULAR HEMOGLOBIN CONC 32.0 GM/DL 32.2-35.5 L (BEAKER) (test code = 752) RED CELL DISTRIBUTION WIDTH 13.4 % 11.7-14.4 (BEAKER) (test code = 412) PLATELET COUNT (BEAKER) (test 199 K/CU MM 150-450 code = 756) MEAN PLATELET VOLUME (BEAKER) 11.2 fL 9.4-12.3 (test code = 754) NUCLEATED RED BLOOD CELLS 0 /100 WBC 0-0 (BEAKER) (test code = 413) NEUTROPHILS RELATIVE PERCENT 64 % (BEAKER) (test code = 429) LYMPHOCYTES RELATIVE PERCENT 24 % (BEAKER) (test code = 430) MONOCYTES RELATIVE PERCENT 9 % (BEAKER) (test code = 431) EOSINOPHILS RELATIVE PERCENT 2 % (BEAKER) (test code = 432) BASOPHILS RELATIVE PERCENT 1 % (BEAKER) (test code = 437) NEUTROPHILS ABSOLUTE COUNT 4.15 K/ L 1.56-6.13 (BEAKER) (test code = 670) LYMPHOCYTES ABSOLUTE COUNT 1.54 K/ L 1.18-3.74 (BEAKER) (test code = 414) MONOCYTES ABSOLUTE COUNT (BEAKER) 0.56 K/ L 0.24-0.36 H (test code = 415) EOSINOPHILS ABSOLUTE COUNT 0.15 K/ L 0.04-0.36 (BEAKER) (test code = 416) BASOPHILS ABSOLUTE COUNT (BEAKER) 0.05 K/ L 0.01-0.08 (test code = 417) IMMATURE GRANULOCYTES-RELATIVE 0 % 0-1 PERCENT (BEAKER) (test code = 2801) POCT-GLUCOSE [id number] 23:36:00 Test Item Value Reference Range Interpretation Comments POC-GLUCOSE METER 119 mg/dL 70-110 H : Notified RN/MD: (BEAKER) (test code = TESTED AT [facility] [id number]) [facility], [id number]: Lunch Wagon Operator/Techni john ID = [id number] for Jayda Donahue Troponin [id number] 21:59:00 Test Item Value Reference Range Interpretation Comments Troponin I (test code = <0.01 0-0.03 41394-0) SANDRA (test code = SANDRA) Troponin I (TnI) levels must be interpreted in the context of the presenting symptoms and the clinical findings. Elevated TnI levels indicate myocardial damage, but are not specific for ischemic heart disease. Elevated TnI levels are seen in patients with other cardiac conditions (including myocarditis and congestive heart failure), and slight TnI elevations occur in patients with other conditions, including sepsis, renal failure, acidosis, acute neurological disease, and persistent tachyarrhythmia. tor ID - DB Lab Interpretation (test Normal code = 16478-8) [facility] [id number] 21:59:00 Test Item Value Reference Range Interpretation Comments TROPONIN I (BEAKER) (test code = 397) < ng/mL 0.00-0.03 Troponin I (TnI) levels must be interpreted in the context of the presenting symptoms and the clinical findings. Elevated TnI levels indicate myocardial damage, but are not specific for ischemic heart disease. Elevated TnI levels are seen in patients with other cardiac conditions (including myocarditis and congestive heart failure), and slight TnI elevations occur in patients with other conditions, including sepsis, renal failure, acidosis, acute neurological disease, and persistent tachyarrhythmia.Lunch Wagon Operator ID - DBComprehensive metabolic [id number] 21:53:00 Test Item Value Reference Range Interpretation Comments Protein, Total (test 6.0 See_Comment [Autom ated code = 2885-2) message] The system which generated this result transmit pablo reference range : 6.0 - 8.3 gm/dL . The reference range was not u sed to interpret th is result as normal/abnormal . Albumin (test code = 3.7 g/dL 3.5-5 71209-3) Alkaline Phosphatase 67 U/L 40-150 (test code = 6768-6) Total Bilirubin (test 0.4 mg/dL 0.2-1.2 code = 1975-2) Sodium (test code = 139 meq/L 503-119 2064-2) Potassium (test code 3.6 meq/L 3.5-5.1 = 2823-3) Chloride (test code = 107 meq/L 98-107 2075-0) CO2 (test code = 27 meq/L 22-29 2028-9) BUN (test code = 31 mg/dL 7-21 H 3094-0) Creatinine (test code 1.05 mg/dL 0.57-1.25 = 2160-0) Glucose (test code = 130 mg/dL 70-105 H 2345-7) Calcium (test code = 8.7 mg/dL 8.4-10.2 49932-9) AST (test code = 13 U/L 5-34 1920-8) ALT (test code = 17 U/L 6-55 1742-6) EGFR (test code = 51 mL/min/1.73 [place] [address]-0) NOT ACCURATE CREATININE CLEARANCE IN PREDICTING GLOMERULAR FILTRATION RATE . ESTIMATED GFR I S NOT APPLICABLE FOR DIALYSIS PATIEN TS. 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 ID - DB Lab Interpretation Abnormal (test code = 11818-8) [facility] [id number] 21:53:00 Test Item Value Reference Range Interpretation Comments TOTAL PROTEIN 6.0 gm/dL 6.0-8.3 (BEAKER) (test code = 770) ALBUMIN (BEAKER) 3.7 g/dL 3.5-5.0 (test code = 1145) ALKALINE PHOSPHATASE 67 U/L 40-150 (BEAKER) (test code = 346) BILIRUBIN TOTAL 0.4 mg/dL 0.2-1.2 (BEAKER) (test code = 377) SODIUM (BEAKER) (test 139 meq/L 136-145 code = 381) POTASSIUM (BEAKER) 3.6 meq/L 3.5-5.1 (test code = 379) CHLORIDE (BEAKER) 107 meq/L 98-107 (test code = 382) CO2 (BEAKER) (test 27 meq/L 22-29 code = 355) BLOOD UREA NITROGEN 31 mg/dL 7-21 H (BEAKER) (test code = 354) CREATININE (BEAKER) 1.05 mg/dL 0.57-1.25 (test code = 358) GLUCOSE RANDOM 130 mg/dL 70-105 H (BEAKER) (test code = 652) CALCIUM (BEAKER) 8.7 mg/dL 8.4-10.2 (test code = 697) AST (SGOT) (BEAKER) 13 U/L 5-34 (test code = 353) ALT (SGPT) (BEAKER) 17 U/L 6-55 (test code = 347) EGFR (BEAKER) (test 51 mL/min/1.73 ESTIMA PABLO GFR IS code = 1092) sq m NOT ACCURATE CREATININE CLEARANCE IN PREDICTING GLOMERULAR FILTRATION RATE . ESTIMATED GFR I S NOT APPLICABLE FOR DIALYSIS PATIEN TS. Lunch Wagon Operator ID - DBGLUCOSE BEDSIDE [id number] 10:53:00 Test Item Value Reference Range Interpretation Comments GLUCOSE BEDSIDE TESTING (test code 165 MG/DL 60-99 H = GLUBED) GLUCOSE BEDSIDE [id number] 06:41:00 Test Item Value Reference Range Interpretation Comments GLUCOSE BEDSIDE TESTING (test code 152 MG/DL 60-99 H = GLUBED) BASIC METABOLIC [id number] 06:08:00 Test Item Value Reference Range Interpretation [...] 8.7 MG/DL 8.4-10.2 N CA) BASIC METABOLIC [id number] 06:07:00 Test Item Value Reference Range Interpretation [...] code = MG/DL 8.7-9.7 CA) BASIC METABOLIC [id number] 06:04:00 Test Item Value Reference Range Interpretation [...] code = CA) MG/DL 8.7-9.7 CBC W/AUTO [id number] 05:53:00 Test Item Value Reference Range Interpretation [...] 0.00 K/mm3 0.0-0.1 N NRBC#) GLUCOSE BEDSIDE [id number] 18:38:00 Test Item Value Reference Range Interpretation Comments GLUCOSE BEDSIDE TESTING (test code 187 MG/DL 60-99 H = GLUBED) BASIC METABOLIC [id number] 07:34:00 Test Item Value Reference Range Interpretation [...] 10.0 MG/DL 8.4-10.2 N CA) Comments to [employer] Tender: NURSE WILL BRING SPECIMEN TO LABIs this [...] VERY HIGH...... ...>/= 190 mg/dL Comments to [employer] Tender: NURSE WILL BRING SPECIMEN TO LABIs this a LINE draw? N [id number] 07:34:00 Test Item Value Reference Range Interpretation Comments MAGNESIUM (test code = MAG) 1.6 MG/DL 1.6-2.3 N Comments to [employer]: NURSE WILL BRING SPECIMEN TO LABIs this a LINE draw? N BASIC METABOLIC [id number] 07:23:00 Test Item Value Reference Range Interpretation [...] 10.0 MG/DL 8.4-10.2 N CA) Comments to [employer]: NURSE WILL BRING SPECIMEN TO LABIs this [...] MG/DL 0-99 code = LDL) Comments to [employer]ender: NURSE WILL BRING SPECIMEN TO LABIs this a LINE draw? N [id number] 07:23:00 Test Item Value Reference Range Interpretation Comments MAGNESIUM (test code = MAG) 1.6 MG/DL 1.6-2.3 N Comments to [employer]: NURSE WILL BRING SPECIMEN TO LABIs this a LINE draw? N BASIC METABOLIC [id number] 07:22:00 Test Item Value Reference Range Interpretation [...] code = MG/DL 8.7-9.7 CA) Comments to [employer]: NURSE WILL BRING SPECIMEN TO LABIs this a LINE draw? N LIPID PROFILE (CORONARY RISK)2020-05-02 07:22:00 Test Item Value Reference Range Interpretation Comments TRIGLYCERIDES (test code = TRIG) MG/DL CHOLESTEROL (test code = CHOL) 180 MG/DL <200 HDL CHOLESTEROL (test code = HDL) MG/DL 40-59 LIPOPROTEIN LDL (test code = LDL) MG/DL 0-99 Comments to [employer]: NURSE WILL BRING SPECIMEN TO LABIs this a LINE draw? N [id number] 07:22:00 Test Item Value Reference Range Interpretation Comments MAGNESIUM (test code = MAG) MG/DL 1.6-2.3 Comments to [employer]: NURSE WILL BRING SPECIMEN TO LABIs this a LINE draw? N BASIC METABOLIC [id number] 07:20:00 Test Item Value Reference Range Interpretation [...] code = CA) MG/DL 8.7-9.7 Comments to [employer] T[employer]: NURSE WILL BRING SPECIMEN TO LABIs this a LINE draw? N LIPID PROFILE (CORONARY RISK)2020-05-02 07:20:00 Test Item Value Reference Range Interpretation Comments TRIGLYCERIDES (test code = TRIG) MG/DL CHOLESTEROL (test code = CHOL) MG/DL <200 HDL CHOLESTEROL (test code = HDL) MG/DL 40-59 LIPOPROTEIN LDL (test code = LDL) MG/DL 0-99 Comments to [employer]: NURSE WILL BRING SPECIMEN TO LABIs this a LINE draw? N [id number] 07:20:00 Test Item Value Reference Range Interpretation Comments MAGNESIUM (test code = MAG) MG/DL 1.6-2.3 Comments to [employer]: NURSE WILL BRING SPECIMEN TO LABIs this a LINE draw? N BASIC METABOLIC [id number] 07:19:00 Test Item Value Reference Range Interpretation [...] code = CA) MG/DL 8.7-9.7 Comments to [employer]: NURSE WILL BRING SPECIMEN TO LABIs this a LINE draw? N LIPID PROFILE (CORONARY RISK)2020-05-02 07:19:00 Test Item Value Reference Range Interpretation Comments TRIGLYCERIDES (test code = TRIG) MG/DL CHOLESTEROL (test code = CHOL) MG/DL <200 HDL CHOLESTEROL (test code = HDL) MG/DL 40-59 LIPOPROTEIN LDL (test code = LDL) MG/DL 0-99 Comments to [employer]: NURSE WILL BRING SPECIMEN TO LABIs this a LINE draw? N [id number] 07:19:00 Test Item Value Reference Range Interpretation Comments MAGNESIUM (test code = MAG) MG/DL 1.6-2.3 Comments to [employer]: NURSE WILL BRING SPECIMEN TO LABIs this a LINE draw? N PROTHROMBIN [id number] 07:15:00 Test Item Value Reference Range Interpretation [...] susana embolism. 3.0 - 4.5 Comments to [employer]: NURSE WILL BRING SPECIMEN TO LABPTT ACTIVATED 2020-05-02 07:15:00 Test Item Value Reference Range Interpretation Comments PTT ACTIVATED (test code = APTT) 24.2 SECONDS 25.1-36.5 L Comments to [employer]: NURSE WILL BRING SPECIMEN TO LABCBC W/AUTO [...] 0.00 K/mm3 0.0-0.1 N NRBC#) Comments to [employer] Tender: NURSE WILL BRING SPECIMEN TO LABIs this a LINE draw? N COVID 19 Asymptomatic IH [id number] 06:02:00 Test Item Value Reference Range Interpretation Comments COVID 19 NEGATIVE Negative "Negative resul ts from Asymptomatic IH AG patients with symptom (test code = onset beyondfiv e days, COVNONPUIAG) should be jesus pablo as presumptive, andconfirmation with a molecular assay [...] amount of virus (antigen) in the sample." MRI Breast W Wo Contrast [id number] 12:45:28There is no suspicous enhancement on MRI to suggest malignancy. Continued monitoring of the clinical examination is recommended and routine mammography. BI-RADS Category 1:Negative Workstation Name: [id number] Interface, Radiology Results 03/31/2020 12:45 PM CDTFormatting of this notemight be different from the original.FILMS COMPARED:The present examination has been compared to a prior outside MR imaging study dated 11/14/2018. BREAST MRI:Prior to administration of intravenous contrast media, axial STIR, and axial T1 images of both breasts were obtained. The patient was injected with 7.1 cc's of Gadavist. Dynamic scanning of both breasts was then performed, with four consecutivesequences of axial T1 weighted gradient echo fat saturated images Three dimensional reconstruction us ing maximal intensity projections and subtracted images were [...] routine mammography. BI-RADS Category 1:Negative Workstation Name: [id number] Breast Complete [id number] 13:08:21Hm Interface, Radiology Results 03/24/2020 1:11 PM CDTFormatting of this note might be di fferent from the original.PROCEDURE:Left Breast Tomosynthesis Diagnostic Mammogram, Left Breast UltrasoundHISTORY:Patient [...] of fibroglandular densities.Finding 1: There is global asymmetry with associated skin retraction in the upper outer quadrant of the left breast.Finding 2: There is a focal asymmetry in the upper inner quadrant of the left breast.ULTRASOUND FINDINGS:Unilateral real-time whole breast sonography of the leftbreast included all four quadrants and the retroareolar [...] PRESENT. NOT ALL CANCERS ARE IDENTIFIED BY X-RAY.[facility] Breast Diagnostic Tomosynthesis [id number] 13:08:21Hm Interface, Radiology Results 03/24/2020 1:11 PM CDT PROCEDURE:Left Breast Tomosynthesis Diagnostic Mammogram, Left Breast UltrasoundHISTORY:Patient [...] of fibroglandular densities.Finding 1: There is global asymmetry with associated skin retraction in the upper outer quadrant of the left breast.Finding 2: There is a focal asymmetry in the upper inner quadrant of the left breast.ULTRASOUND FINDINGS:Unilateral real-time whole breast sonography of the leftbreast included all four quadrants and the retroareolar [...] NOT ALL CANCERS ARE IDENTIFIED BY X-RAY.Lavelle Ivy
--- NOTE | 2020-11-26 18:12 | RAD REPORT ---
EXAM DESCRIPTION: RAD - Tib Fib Right - 11/26/2020 5:51 pm CLINICAL HISTORY: Right leg pain FINDINGS: No fracture is seen
[2020-11-26] MEDS ORDERED: ACETAMINOPHEN 325 MG TABLET ONE (19:27)
--- NOTE | 2020-11-26 19:36 | RAD REPORT ---
EXAM DESCRIPTION: RAD - Femur Right - 11/26/2020 7:20 pm CLINICAL HISTORY: Leg pain FINDINGS: No fracture is seen. Bones appear osteoporotic
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
[2020-11-26 20:35] VITALS: BP 111/56; TEMP 98.4; O2SAT 97
== END 2020-11-26 20:21 | disposition home or self-care (01) ==
LOC: ER 16:43
DX: S93.401A Sprain of unspecified ligament of right ankle, initial encounter (principal); S76.011A Strain of muscle, fascia and tendon of right hip, initial encounter; V09.9XXA Pedestrian injured in unspecified transport accident, initial encounter; I10 Essential (primary) hypertension; Z95.818 Presence of other cardiac implants and grafts
CPT/HCPCS: 99284

== ENCOUNTER 2022-08-03 12:09 | Observation (INO) | payer OTHER ==
--- OUTSIDE RECORDS SUMMARY | 2022-08-03 12:12 | XMS REPORT | Continuity of Care Document ---
:1945 Author Organization [facility] t Address [address] [place] [phone] Care Team Providers Name Role Phone Asked, No Pcp Primary Care Physician Unavailable LASHA DURAN Attending Clinician Unavailable Itz Franks Attending Clinician Unavailable WIL ABARCA Attending Clinician Unavailable DASHA SAAVEDRA Attending Clinician Unavailable LASHA DURAN Admitting Clinician Unavailable ALEXI MENDIETA Admitting Clinician Unavailable DASHA SAAVEDRA Admitting Clinician Unavailable Payers Payer Name Policy Type Policy Number Effective Date Expiration Date S ource Problems Condition Condition Condition Status Onset Resolution Last Treating Co mments Source Name Details Category Date Date Treatment Clinician Date Hypertensi Hypertensi Disease [facility] SAH SAH Disease Active [facility] (subarachn (subarachn 08-09 Tisha kes oid oid 00:00: Medical hemorrhage hemorrhage 00 Ce nter ) ) Received Received Disease [facility] tissue tissue 08-09 [facility] plasminoge plasminoge 00:00: Me dical n n 00 Center activator activator (t-PA) (t-PA) less than less than 24 hours 24 hours prior to prior to arrival arrival DM DM Disease Active [facility] (diabetes (diabetes 08-09 [facility] mellitus) mellitus) 00:00: Medi orly 00 Center Stroke Stroke Disease Active [facility] (cerebrum) (cerebrum) 1-16 Tisha kes 00:00: Medical Center Allergies, Adverse Reactions, Alerts Allergy Allergy Status Severity Reaction(s) Onset Inactive Treating Comm ents Source Name Type Date Date Clinician No Known DA [facility]: [address] No Known DA Active [facility] 2019-[facility] 00:[facility]: [address] NO KNOWN Allergy Active [facility] ALLERGIE [facility] Social History Social Habit Start Date Stop Date Quantity Comments Source Sex Assigned At [birth year] [facility] 00:00:00 00:00:00 Smoking Status Start Date Stop Date Source Tobacco smoking consumption unknown [facility] Never smoker [facility] Center Medications Ordered Filled Start Stop Current Ordering Indication Dosage Frequency Signature Comments Components Source Medication Medication Date Date Medication? Clinician (SIG) Name Name triamterene Yes 1{capsu QD Take [address] -hydroCHLOR 1-18 le} capsule by Tisha serrato Othiazide 13:34: mouth Medical (Dyazide) 36 every Center 37.5-25 mg morning. per capsule isosorbide Yes 30mg QD Take [address] mononitrate 1-18 by mouth Luke s (IMDUR) 30 13:34: daily. Medic al MG 24 hr 36 Center tablet escitalopra Yes 10mg QD Take [address] [facility] m oxalate 1-18 by mouth [facility] (LEXAPRO) 13:34: daily. Medica l 10 MG 36 Center tablet metFORMIN Yes 500mg Q.5D Take [address] (GLUCOPHAGE 1-18 mg by [facility] ) 500 MG 13:34: mouth 2 Medica l tablet 36 (two) Center times daily . atorvastati Yes 40mg QD Take [address] n (LIPITOR) 1-18 by mouth Luke s 40 MG 13:34: daily. Medical tablet 36 Center lisinopril- Yes 2{tbl} QD Take [address] hydroCHLORO 1-18 tablets by Tisha serrato thiazide 13:34: mouth Medical (PRINZIDE,Z 36 daily. Center ESTORETIC) 10-12.5 mg per tablet aspirin 81 Yes 81mg QD Take [address] MG chewable 18 by mouth [facility] s tablet 13:34: daily. Medical 36 [place] clopidogreL Yes 75mg QD Take [address] (PLAVIX) 75 18 by mouth [facility] s mg tablet 13:34: daily. Medica l 36 [place] acetaminoph 2021- No 650mg Take [address] en 08-10 tablets [facility] (TYLENOL) 00:00: 23:59 (650 mg Medi orly 325 MG 00 :00 total) by Center tablet mouth every 6 (six) hours as needed for up to 360 days. UNABLE TO 2020-0 Yes QD Take by Metho di FIND 03-[address] 12:15: daily. Hospita 34 Vitamin D3 l lisinopriL 2020-0 Yes QD Take by Meth rj 10 mg 03-[address] tablet 1 12:15: daily. Hospita tablet, 34 l hydroCHLORO thiazide 25 MG tablet 0.5 tablet metFORMIN 2020-0 Yes 500mg Q.5D Take 500 Met hodi (GLUCOPHAGE 9-[address] ) 500 mg 12:15: mouth 2 Hospit a tablet 34 (two) l times a day with meals. escitalopra 2020-0 Yes 10mg QD Take 10 mg Methodi m (LEXAPRO) [address] 10 MG 12:15: daily. Hospita tablet 34 l ascorbic 2020-0 Yes QD Take by Method i acid 03-[address] (VITAMIN C 12:15: daily. Hospi ta ORAL) 34 l B 2020-0 Yes 1{tbl} QD Take 1 Methodi complex-vit 03-[address] [facility] 12:15: mouth Hospita C-folic 34 daily. l acid-copper -zinc (FOLBEE PLUS 5 MG WITH COPPER AND ZINC) 5-1.5-25 mg tablet per tablet nutritional 2020-0 Yes Q.5D Take by Met hodi supplement- 03-[address] fiber 12:15: (two) Hospita liquid 34 times a l day. Juice Plus Vital Signs Vital Name Observation Time Observation Value Comments Source WEIGHT 2020-08-08 20:45:00 67 kg HEIGHT 2020-08-08 20:45:00 162.6 cm WEIGHT 2020-08-08 20:45:00 67 kg HEIGHT 2020-08-08 20:45:00 162.6 cm Procedures This patient has no known procedures. Plan of Care Planned Activity Planned Date Details Comments Source Future Scheduled 2022-07-[address] [facility] Test 00:00:00 (12+) [code = Medical Center DEPRESSION SCREENING (12+)] Future Scheduled 2022-07-24 FALLS RISK SCREENING [facility] Test 00:00:00 [code = FALLS RISK Medical C enter SCREENING] Future Scheduled 2022-07-07 COVID-19 VACCINE (#1) [facility] Test 04:26:59 [code = COVID-19 VACCINE (#1)] Future Scheduled 2022-07-07 Hepatitis C screening [facility] Test 04:26:59 (procedure) [code = 118496701] Future Scheduled 2022-07-07 COLONOSCOPY SCREENING [facility] Test 04:26:59 [code = COLONOSCOPY SCREENING] Future Scheduled 2022-07-07 SHINGLES VACCINES (1 Met [facility] Test 04:26:59 of 2) [code = SHINGLES VACCINES (1 of 2)] Future Scheduled 2022-07-07 65+ [facility]UMOCOCCAL [facility] Test 04:26:59 VACCINE (1 - PCV) [code = 65+ PNEUMOCOCCAL VACCINE (1 - PCV)] Future Scheduled 2022-07-07 BREAST CANCER [facility] Test 04:26:59 SCREENING [code = BREAST CANCER SCREENING] Future Scheduled 2022-07-07 INFLUENZA VACCINE Method [facility] Test 04:26:59 [code = INFLUENZA VACCINE] Future Scheduled 2022-03-24 INFLUENZA VACCINE (#1) [facility] 00:00:00 [code = INFLUENZA Medical Ce nter VACCINE (#1)] Future Scheduled 2021-02-[address] Tisha kes Test 00:00:00 [facility] Center (procedure) [code = 95213647] Future Scheduled 2012-07-[address] [facility] Test 00:00:00 WELLNESS (YEAR 2 or Medical Center FIRST YEAR if no IPPE) [code = MEDICARE ANNUAL WELLNESS (YEAR 2 or FIRST YEAR if no IPPE)] Future Scheduled 1996 SHINGLES VACCINES ([address] [facility] Test 00:00:00 of 2) [code = SHINGLES Medic al Center VACCINES (1 of 2)] Future Scheduled 1965 DTAP/TDAP/TD VACCINES [facility] Test 00:00:00 (1 - Tdap) [code = Medical C enter DTAP/TDAP/TD VACCINES (1 - Tdap)] Future Scheduled 1964 HEPATITIS C SCREENING [facility] Test 00:00:00 [code = HEPATITIS C Medical Center SCREENING] Future Scheduled [address] [facility] Test 00:00:00 Counseling and Medical Cente r Screening (12+) [code = Tobacco Cessation Counseling and Screening (12+)] Future Scheduled [address]AB[address] EYE EXAM [facility] Test 00:00:00 [code = DIABETIC EYE Medical Center EXAM] Future Scheduled [address] [facility] Test 00:[facility] examination Medical Center (regime/therapy) [code = 174356989] Future Scheduled 1956 Urine screening for [facility] Test 00:00:00 protein (procedure) [facility] [code = 889670787] Future Scheduled 1952 PNEUMOCOCCAL 65+ Y[facility] Test 00:00:00 (1 - PCV) [code = Medical Ce nter PNEUMOCOCCAL 65+ YRS (1 - PCV)] Future Scheduled 1947-01-27 COVID-19 VACCINE (#1) [facility] Test 00:00:00 [code = COVID-[address] VACCINE (#1)] Future Scheduled 1945 DXA SCAN [code = DXA [facility] Test 00:00:00 SCAN] [facility] Encounters Start End Encounter Admission Attending Care Care Encounter Source Date/Time Date/Time Type Type Clinicians Facility Department ID 2021-04-30 Inpatient ER RENEE, [facility] Neuro ICU [id number] [facility] 23:46:07 LASHA 2020-05-02 Inpatient EL Tiny, [facility] [id number] [facility] 12:00:00 Sali 13 [facility] 2020-11-24 2020-11-24 Outpatient [facility] [id number] [place] 00:00:00 00:00:00 WIL Garc[facility] 2020-11-24 2020-11-24 Outpatient COSELLI, [facility] [id number] [place] 00:00:00 00:00:00 WIL 768 Method i 2020-03-31 2020-03-31 Outpatient COSELLI, [facility] [id number] [place] 00:00:00 00:00:00 WIL 310 Method i 2020-03-24 2020-03-24 Outpatient COSELLI, [facility] [id number] [place] 00:00:00 00:00:00 WIL 434 Method i 2020-03-24 2020-03-24 Outpatient COSELLI, [facility] [id number] [place] 00:00:00 00:00:00 WIL 435 Method i 2019-09-27 2019-09-27 Outpatient COSELLI, [facility] [id number] [place] 00:00:00 00:00:00 WIL 733 Method i 2019-09-27 2019-09-27 Outpatient COSELLI, [facility] [id number] [place] 00:00:00 00:00:00 WIL 220 Method i 2019-09-27 2019-09-27 Outpatient COSELLI, [facility] [id number] [place] 00:00:00 00:00:00 WIL 507 Method i 2019-09-27 2019-09-27 Outpatient COSELLI, [facility] [id number] [place] 00:00:00 00:00:00 WIL 545 Method i 2019-09-27 2019-09-27 Outpatient COSELLI, [facility] [id number] [place] 00:00:00 00:00:00 WIL 595 Method i 2019-09-27 2019-09-27 Outpatient COSELLI, [facility] [id number] [place] 00:00:00 00:00:00 WIL 667 Method i 2019-04-12 2019-05-13 Outpatient C [facility] [id number] [facility] 12:29:00 23:59:00 A, ADSHA Medic al Center Results Test Description Test Time Test Comments Results Result Comments Source POCT-GLUCOSE METER 2020-08-10 11:20:00 Test Item Value Reference Range Interpretation Comme nts POC-GLUCOSE METER (BEAKER) 144 mg/dL 70-110 H : [facility]ED AT [facility] [address] [facility] (test code = 1538) SUPPLY [place]te[place], [address]: Stem Roller/Techni john ID = [id number] for MARIAMA LOCKHART POCT-GLUCOSE [id number] 07:36:00 Test Item Value Reference Range Interpretation Comments POC-GLUCOSE METER 125 mg/dL 70-110 H : TESTED A T [facility] [address] (BEAKER) (test code = LUIS ALBERTO [place], 1538) [address]: Stem Roller/Techni john ID = [id number] for MARIAMA GARCES BASIC METABOLIC [id number] 04:00:00 Test Item Value Reference Range Interpretation [...] S NOT APPLICABLE FOR DIALYSIS PATIEN TS. Stem Roller ID - PIAYA LCBC W/PLT COUNT & AUTO [id number] 03:35:00 Test Item Value Reference Range Interpretation [...] PERCENT (BEAKER) (test code = 2801) POCT-GLUCOSE [id number] 22:52:00 Test Item Value Reference Range Interpretation Comments POC-GLUCOSE METER 158 mg/dL 70-110 H : TESTED A T [facility] [address] (BEAKER) (test code [facility], = 1538) [address]: Stem Roller/Techni john ID = [id number] for AMITA MAGALLANES MR, BRAIN, WITHOUT [id number] 16:50:00Unlisted Reason for Exam - Click Yes and Enter Reason Below->NoDeos the patient have an implantedelectronic device?->NoKAISER PERMANENTE [facility] CENTERName: GERRY DOWLING : 1945 Sex: FFINAL REPORT MR, BRAIN, WITHOUT CONTRAST INDICATION: Stroke, follow up TECHNIQUE: Multiplanar, multisequence MR imaging of the brain without intravenous contrast. COMPARISON: None FINDINGS:There is no restricted diffusion. Mild volume loss. Minimal white matter disease. Otherwise no focal signal abnormality. There is no mass effect or abnormal extra-axial fluid. The ventricles are normalin size and configuration. The larger intracranial vascular flow-voids are preserved. Right mastoid effusion. Paranasal sinuses are otherwise clear. There is normal bone marrow signal intensity within the calvarium and skull base. IMPRESSION: Age-appropriate noncontrast MRI of the brain. No diffusion restriction. Right mastoid effusion. Signed: JR Leija Robert MDReport Verified Date/Time: 08/09/2020 16:50:49 Reading Location: [address] Neuro Reading Room SARS-COV2/RT-PCR ([facility])2020-08-09 13:04:00 Test Item Value Reference Range Interpretation Comments SARS-COV2/RT-PCR (test Negative Not Detected, Negative, code = 1730114) See external report for linked test SARS-COV-2 PERFORMING LAB [facility] DIANE (test code = 0365922) Negative result for this test determines that [...] individuals suspected of COVID-19 by their healthcare provider.This test [...] justifying the authorization of the emergency use ofin vitro diagnostic tests for detection and/or diagnosis of COVID-19 is terminated under Section 564(b)(2) of the Act or the EUA is revoked under Section 564(g) of the Act.Fact Sheet for Healthcare Prov iders:https://www.Gaming [employer]/sites/default/files/product/documents/Fact_Sheet_HC _Bnlwiptga_Qcwg_KBWD-VpF-2.pdfFact Sheet for Healthcare Patients:https://www.Ravn.FanBread/sites/default/files/product/docume nts/Iizw_Sbuqw_Waekvmgu_Hwrr_EQLI-XuR-4.pdfPerforming Laboratory:[facility], [place] [id number] [id number] 11:59:00 Test Item Value Reference Range Interpretation Comments HEMOGLOBIN A1C (LEXA) (test code = 7.5 % 4.3-6.1 H 368) POCT-GLUCOSE [id number] 10:50:00 Test Item Value Reference Range Interpretation Comments POC-GLUCOSE METER 176 mg/dL 70-110 H : TESTED A T [facility] 67[address] (LEXA) (test code = LUIS ALBERTO Albarado [facility], 1538) [address]: Stem Roller/Techni john ID = [id number] for JEANETH THOMAS B-TYPE NATRIURETIC FACTOR (BNP)2020-08-09 10:29:00 Test Item Value Reference Range Interpretation Comments B-TYPE NATRIURETIC PEPTIDE (BEAKER) 34 pg/mL 0-100 (test code = 700) Stem Roller ID - DESTINY LPOCT-GLUCOSE [id number] 07:43:00 Test Item Value Reference Range Interpretation Comments POC-GLUCOSE METER 129 mg/dL 70-110 H : TESTED A T [facility] 67[address] (BEAKER) (test code = LUIS ALBERTO Albarado [facility], 1538) [address]: Stem Roller/Techni john ID = [id number] for JEANETH THOMAS VITAMIN B12 AND [id number] 06:53:00 Test Item Value Reference Range Interpretation Comments VITAMIN B12 (BEAKER) (test code = < pg/mL 213-816 L 774) FOLATE (BEAKER) (test code = 362) 11.60 ng/mL >=7.00 Stem Roller ID - ARCELIABROOKLYN LOperator ID - DESTINY LCT BRAIN WITHOUT IV CONTRAST - [id number] 06:34:00Unlisted Reason for Exam - Click Yes and Enter Reason Below->YesUnlisted Reason for Exam->stroke [facility] : 1945 Sex: FFINAL REPORT CT Head without contrast CLINICAL HISTORY: Cerebral hemorrhage suspectedstroke TECHNIQUE: Contiguous axial images through the head without contrast on the portable CT unit. This exam was performed according to the departmental dose optimization program which includes automatedexposure control, adjustment of the mA and/or kV according to the patient size, and/or use of an iterative reconstruction technique. COMPARISON: August 08, 2020, seven hours prior Impression: The portable head CT technique reveals trace subarachnoid hemorrhage within the left frontal sulci. Findings are less conspicuous on the current examination which may be due to less sensitive portable techniqueor interval reduction in hemorrhage. No detrimental interval change. No hydrocephalus, mass or midline shift. Remainder of the examination is stable. Signed: Aiden Jameson MDReport Verified Date/Time: 08/09/2020 06:34:14 BASIC METABOLIC [id number] 04:52:00 Test Item Value Reference Range Interpretation [...] S NOT APPLICABLE FOR DIALYSIS PATIEN TS. Stem Roller ID - PIAYA LLIPID [id number] 04:52:00 Test Item Value Reference Range Interpretation Comments TRIGLYCERIDES (BEAKER) (test code = 99 mg/dL 540) CHOLESTEROL (BEAKER) (test code = 114 mg/dL 631) HDL CHOLESTEROL (BEAKER) (test code 29 mg/dL = 976) LDL CHOLESTEROL CALCULATED (BEAKER) 65 mg/dL (test code = 633) Triglyceride Reference Range: Low Risk <150 Borderline 150-199 High Risk 200- 499 Very High Risk >=500Cholesterol Reference Range: Low Risk <200 Borderline 200-239 High Risk >240HDL Cholesterol Reference Range: Low Risk >=60 High Risk <40LDL Cholesterol Reference Range: Optimal <100 Near Optimal 100-129 Borderline 130-159 High 160-189 Very High >=190 Stem Roller HAYES DIXON [id number] 04:40:00 Test Item Value Reference Range Interpretation Comments THYROID STIMULATING HORMONE 1.676 uIU/mL 0.350-4.940 (BEAKER) (test code = 772) Stem Roller HAYES DIXON LPROTHROMBIN [id number] 00:10:00 Test Item Value Reference Range Interpretation [...] is 2.5-3.5 for patients wiht mechanical heart valves.[id number] 00:10:00 Test Item Value Reference Range Interpretation Comments PARTIAL THROMBOPLASTIN TIME 28.0 seconds 22.5-36.0 (BEAKER) (test code = 760) [id number] 00:10:00 Test Item Value Reference Range Interpretation Comments FIBRINOGEN LEVEL (BEAKER) (test 214 mg/dl 225-434 L code = 658) CBC W/PLT COUNT & AUTO [id number] 00:00:00 Test Item Value Reference Range Interpretation [...] PERCENT (BEAKER) (test code = 2801) POCT-GLUCOSE [id number] 23:36:00 Test Item Value Reference Range Interpretation Comments POC-GLUCOSE METER 119 mg/dL 70-110 H : Notified RN/MD: (LEXA) (test code = TESTED AT [facility] 67[address] 4647) [facility], [address]: Stem Roller/Techni john ID = [id number] for Jayda Donahue TROPONIN [id number] 21:59:00 Test Item Value Reference Range Interpretation [...] failure, acidosis, acute neurological disease, and persistent tachyarrhythmia.Stem Roller ID - DBCOMPREHENSIVE METABOLIC [id number] 21:53:00 Test Item Value Reference Range Interpretation [...] S NOT APPLICABLE FOR DIALYSIS PATIEN TS. Stem Roller ID - DBGLUCOSE BEDSIDE [id number] 10:53:00 Test Item Value Reference Range Interpretation Comments GLUCOSE BEDSIDE TESTING (test code 165 MG/DL 60-99 H = GLUBED) GLUCOSE BEDSIDE [id number] 06:41:00 Test Item Value Reference Range Interpretation Comments GLUCOSE BEDSIDE TESTING (test code 152 MG/DL 60-99 H = GLUBED) BASIC METABOLIC [id number] 06:08:00 Test Item Value Reference Range Interpretation [...] 8.7 MG/DL 8.4-10.2 N CA) BASIC METABOLIC [id number] 06:07:00 Test Item Value Reference Range Interpretation [...] code = MG/DL 8.7-9.7 CA) BASIC METABOLIC [id number] 06:04:00 Test Item Value Reference Range Interpretation [...] code = CA) MG/DL 8.7-9.7 CBC W/AUTO [id number] 05:53:00 Test Item Value Reference Range Interpretation [...] 0.00 K/mm3 0.0-0.1 N NRBC#) GLUCOSE BEDSIDE [id number] 18:38:00 Test Item Value Reference Range Interpretation Comments GLUCOSE BEDSIDE TESTING (test code 187 MG/DL 60-99 H = GLUBED) BASIC METABOLIC [id number] 07:34:00 Test Item Value Reference Range Interpretation [...] 10.0 MG/DL 8.4-10.2 N CA) Comments to Management Architect: NURSE WILL BRING SPECIMEN TO LABIs this [...] LIPOPROTEIN LDL (test 109 MG/DL 0-99 H OPTIM AL.........<100 code = LDL) mg/dLNEAR OPTIMAL/ABOVE OPTIMAL........ .100-12 9 mg/dL BORDERL INE HIGH.........13 0-159 mg/dL HIGH.........16 0-189 mg/dL VERY HIGH.........>/ = 190 mg/dL Comments to Management Architect: NURSE WILL BRING SPECIMEN TO LABIs this a LINE draw? N [id number] 07:34:00 Test Item Value Reference Range Interpretation Comments MAGNESIUM (test code = MAG) 1.6 MG/DL 1.6-2.3 N Comments to Management Architect: NURSE WILL BRING SPECIMEN TO LABIs this a LINE draw? N BASIC METABOLIC [id number] 07:23:00 Test Item Value Reference Range Interpretation [...] 10.0 MG/DL 8.4-10.2 N CA) Comments to Management Architect: NURSE WILL BRING SPECIMEN TO LABIs this [...] MG/DL 0-99 code = LDL) Comments to Management Architect: NURSE WILL BRING SPECIMEN TO LABIs this a LINE draw? N [id number] 07:23:00 Test Item Value Reference Range Interpretation Comments MAGNESIUM (test code = MAG) 1.6 MG/DL 1.6-2.3 N Comments to Management Architect: NURSE WILL BRING SPECIMEN TO LABIs this a LINE draw? N BASIC METABOLIC [id number] 07:22:00 Test Item Value Reference Range Interpretation [...] code = MG/DL 8.7-9.7 CA) Comments to Management Architect: NURSE WILL BRING SPECIMEN TO LABIs this a LINE draw? N LIPID PROFILE (CORONARY RISK)2020-05-02 07:22:00 Test Item Value Reference Range Interpretation Comments TRIGLYCERIDES (test code = TRIG) MG/DL CHOLESTEROL (test code = CHOL) 180 MG/DL <200 HDL CHOLESTEROL (test code = HDL) MG/DL 40-59 LIPOPROTEIN LDL (test code = LDL) MG/DL 0-99 Comments to Management Architect: NURSE WILL BRING SPECIMEN TO LABIs this a LINE draw? N [id number] 07:22:00 Test Item Value Reference Range Interpretation Comments MAGNESIUM (test code = MAG) MG/DL 1.6-2.3 Comments to Management Architect: NURSE WILL BRING SPECIMEN TO LABIs this a LINE draw? N BASIC METABOLIC [id number] 07:20:00 Test Item Value Reference Range Interpretation [...] code = CA) MG/DL 8.7-9.7 Comments to Management Architect: NURSE WILL BRING SPECIMEN TO LABIs this a LINE draw? N LIPID PROFILE (CORONARY RISK)2020-05-02 07:20:00 Test Item Value Reference Range Interpretation Comments TRIGLYCERIDES (test code = TRIG) MG/DL CHOLESTEROL (test code = CHOL) MG/DL <200 HDL CHOLESTEROL (test code = HDL) MG/DL 40-59 LIPOPROTEIN LDL (test code = LDL) MG/DL 0-99 Comments to Management Architect: NURSE WILL BRING SPECIMEN TO LABIs this a LINE draw? N [id number] 07:20:00 Test Item Value Reference Range Interpretation Comments MAGNESIUM (test code = MAG) MG/DL 1.6-2.3 Comments to Management Architect: NURSE WILL BRING SPECIMEN TO LABIs this a LINE draw? N BASIC METABOLIC [id number] 07:19:00 Test Item Value Reference Range Interpretation [...] code = CA) MG/DL 8.7-9.7 Comments to Management Architect: NURSE WILL BRING SPECIMEN TO LABIs this a LINE draw? N LIPID PROFILE (CORONARY RISK)2020-05-02 07:19:00 Test Item Value Reference Range Interpretation Comments TRIGLYCERIDES (test code = TRIG) MG/DL CHOLESTEROL (test code = CHOL) MG/DL <200 HDL CHOLESTEROL (test code = HDL) MG/DL 40-59 LIPOPROTEIN LDL (test code = LDL) MG/DL 0-99 Comments to Management Architect: NURSE WILL BRING SPECIMEN TO LABIs this a LINE draw? N [id number] 07:19:00 Test Item Value Reference Range Interpretation Comments MAGNESIUM (test code = MAG) MG/DL 1.6-2.3 Comments to Management Architect: NURSE WILL BRING SPECIMEN TO LABIs this a LINE draw? N PROTHROMBIN [id number] 07:15:00 Test Item Value Reference Range Interpretation Comments PROTHROMBIN TIME 12.0 SECONDS 9.4-12.5 N PATIENT (test code = PTP) INTERNATIONAL NORMAL 1.1 The INR is to be RATIO (test code = used only for INR) monitoring oral anticoagulantth erap y. INDICATION I NR VALUE ---- ---- ---- -------1. Prophylaxis, de ep venous thrombos is, including high risk surgery. 2.0 - 3.0 2. Prophylaxis, deep venous thrombosis, hip surgery, treatm ent for deep venous thrombosis or pulmonary prevention of systemic emboli sm in patients wit h valvular heart disease, atrial fibrillation, tissue heart va lve, or acute myocar dial infarction. 2.0 - 3.0 3. Delivery Assistant al prosthesis hear t valves, recurre nt systemic emboli sm. 3.0 - 4.5 Comments to Management Architect: NURSE WILL BRING SPECIMEN TO LABPTT ACTIVATED 2020-05-02 07:15:00 Test Item Value Reference Range Interpretation Comments PTT ACTIVATED (test code = APTT) 24.2 SECONDS 25.1-36.5 L Comments to Management Architect: NURSE WILL BRING SPECIMEN TO LABCB W/AUTO DIFF 2020-05-02 07:04:00 Test Item Value [...] 0.00 K/mm3 0.0-0.1 N NRBC#) Comments to Management Architect: NURSE WILL BRING SPECIMEN TO LABIs this a LINE draw? N COVID 19 Asymptomatic IH [id number] 06:02:00 Test Item Value Reference Range Interpretation Comments COVID 19 NEGATIVE Negative "Negative resul ts from Asymptomatic IH AG patients with symptom (test code = onset beyondfiv e days, COVNONPUIAG) should be treat ed as presumptive, andconfirmation with a molecular assay [...]
[2022-08-03 13:12] LABS: Absolute Lymphocytes (CBC) 1.2 K/uL (0.7-4.9); Hematocrit 32.8 % (36.0-45.0); MCV 89.4 fL (80-100); MPV 9.4 fL (7.6-11.3); RBC Red Blood Cell Count 3.67 M/uL (3.86-4.86)
[2022-08-03 13:13] LABS: Protime INR 1.12
[2022-08-03 13:30] LABS: Albumin 3.6 g/dL (3.4-5.0); Bilirubin Direct 0.1 mg/dL (0-0.2); Bilirubin Total 0.4 mg/dL (0.2-1.0); Magnesium 1.5 mg/dL (1.6-2.4); Potassium 4.7 mmol/L (3.5-5.1); Protein, Total 6.8 g/dL (6.4-8.2); Troponin High Sensitivity 5.7 pg/mL (<58.9)
--- NOTE | 2022-08-03 13:42 | RAD REPORT ---
EXAM DESCRIPTION: RAD - Chest Single View - 08/03/2022 1:32 pm CLINICAL HISTORY: CHEST PAIN COMPARISON: Chest Single View dated 08/08/2020; Chest Pa And Lat (2 Views) dated 10/28/2017; CHEST PA A ND LAT 2 VIEW dated 02/26/2014; CHEST PA AND LAT 2 VIEW dated 10/02/2013 FINDINGS: Lines: None. Lungs: No evidence of edema or pneumonia. Pleural: No significant pleural effusions or pneumothorax. Cardiac: The heart size is within normal limits. Mediastinum: Within normal limits. Bones: No acute fractures. Other: None IMPRESSION: No acute cardiopulmonary disease.
--- NOTE | 2022-08-03 14:34 | ER ---
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 Pt become dizzy, weak, and diaphoretic, and began having severe jaw pain. EMS gave 324 mg of aspirin. Coronavirus screen: Vaccine status: Patient reports receiving the 2nd dose of the covid vaccine. Ebola Screen: No symptoms or risks identified at this time. Initial Sepsis Screen: Does the patient meet any 2 criteria? No. Patient's initial sepsis screen is negative. Does the patient have a suspected source of infection? No. Patient's initial sepsis screen is negative. Risk Assessment: Do you want to hurt yourself or someone else? Patient reports no desire to harm self or others. Onset of symptoms was August 03, 2022. 12:23 Method Of Arrival: EMS: [facility] mb9 12:23 Acuity: KHANH 3 mb9 Historical: - Allergies: 12:26 No Known Allergies; mb9 - Home Meds: 12:26 Cipro Oral [Active]; mb9 - PMHx: 12:26 CVA; Diabetes - NIDDM; High Cholesterol; Hypertension; UTI; mb9 - PSHx: 12:26 None; mb9 - Immunization history:: Adult Immunizations up to date. - Social history:: Smoking status: Patient denies any tobacco usage or history of. Screenin:29 [facility] ED Fall Risk Assessment (Adult) History of falling in the last 3 months, mb9 including since admission No falls in past 3 months (0 pts) Confusion or Disorientation No (0 pts) Intoxicated or Sedated No (0 pts) Impaired Gait No (0 pts) Mobility Assist Device Used No (0 pt) Altered Elimination No (0 pt) Score/Fall Risk Level 0 - 2 = Low Risk Oriented to surroundings, Maintained a safe environment, Educated pt \T\ family on fall prevention, incl call for assistance when getting out of bed. Abuse screen: Denies threats or abuse. Nutritional screening: No deficits noted. Tuberculosis screening: No symptoms or risk factors identified. Assessment: 12:27 General: Appears uncomfortable, Behavior is anxious. Pain: Complains of pain in jaw mb9 Pain does not radiate. Pain currently is 2 out of 10 on a pain scale. Quality of pain is described as crampy, Pain began suddenly. Neuro: Alvarez Agitation-Sedation Scale (RASS): 0 - Alert and Calm Level of Consciousness is awake, alert, obeys commands, Oriented to person, place, time, situation, Appropriate for age Work Counselor are equal bilaterally Moves all extremities. Gait is steady, Speech is normal, Facial symmetry appears normal, Pupils are PERRLA, Intact. Cardiovascular: Denies chest pain, Heart tones S1 S2 present Capillary refill < 3 seconds in bilateral Pulses are all present. Rhythm is regular. Respiratory: Airway is patent Respiratory effort is even, unlabored, Respiratory pattern is regular, symmetrical, Breath sounds are clear bilaterally. GI: Abdomen is flat, non-distended, Bowel sounds present X 4 quads. Abd is soft and non tender X 4 quads. Patient currently denies nausea. : Reports currently have a UTI. EENT: No signs and/or symptoms were reported regarding the EENT system. Derm: Skin is intact, Skin is dry, Skin is pale, Skin temperature is warm. Musculoskeletal: Range of motion: intact in all extremities. 13:45 Reassessment: No changes from previously documented assessment. Patient and/or family mb9 updated on plan of care and expected duration. Pain level reassessed. Patient is alert, oriented x 3, equal unlabored respirations, skin warm/dry/pink. Patient denies pain at this time. Patient states feeling better. Patient states symptoms have improved. 15:49 Reassessment: No changes from previously documented assessment. Patient and/or family mb9 updated on plan of care and expected duration. Pain level reassessed. Patient is alert, oriented x 3, equal unlabored respirations, skin warm/dry/pink. Patient states feeling better. Patient states symptoms have improved. 17:00 Reassessment: No changes from previously documented assessment. Patient and/or family mb9 updated on plan of care and expected duration. Pain level reassessed. Patient is alert, oriented x 3, equal unlabored respirations, skin warm/dry/pink. Patient denies pain at this time. Patient states feeling better. Patient states symptoms have improved. Vital Signs: 12:23 BP 112 / 63; Pulse 62; Resp 14; Temp 97.3; Pulse Ox 100% on R/A; Weight 68.95 kg; mb9 Height 5 ft. 3 in. (160.02 cm); Pain 1/10; 15:49 BP 120 / 92; Pulse 53; Resp 14; Pulse Ox 100% on R/A; mb9 17:13 BP 127 / 49; Pulse 63; Resp 14; Pulse Ox 100% on R/A; Pain 0/10; mb9 12:23 Body Mass Index 26.93 (68.95 kg, 160.02 cm) mb9 NIH Stroke Scale Scores: 12:23 NIHSS Score: 0 mb9 ED Course: 12:23 Patient arrived in ED. mb9 12:23 Arm band placed on. mb9 12:26 Triage completed. mb9 12:29 Placed in gown. Bed in low position. Call light in reach. Side rails up X 1. Client mb9 placed on continuous cardiac and pulse oximetry monitoring. NIBP monitoring applied. item processor on. Door closed. Noise minimized. Warm blanket given. 12:29 Maintain EMS IV. Dressing intact. Good blood return noted. Site clean \T\ dry. Gauge \T\ mb 9 site: 20 g to right AC. 12:32 Rodney Caban MD is Attending Physician. sp3 12:33 EKG done, by soil field technician. reviewed by Rodney Caban MD. mb9 12:39 Nataliia Mcmahan, EARLENE is Primary Nurse. mb9 12:58 Basic Metabolic Panel Sent. mb9 12:58 CBC with Diff Sent. mb9 12:58 D-Dimer Sent. mb9 12:58 LFT's Sent. mb9 12:58 Magnesium Sent. mb9 12:59 NT PRO-BNP Sent. mb9 12:59 PT-INR Sent. mb9 12:59 Troponin HS Sent. mb9 13:33 XRAY Chest (1 view) In Process Unspecified. EDMS 14:33 Henry Bassett is Hospitalizing Provider. sp3 08/04 03:27 Primary Nurse role handed off by Nataliia Mcmahan, EARLENE wm 09:02 No provider procedures requiring assistance completed. Patient admitted, IV remains in ld1 place. Administered Medications: No medications were administered Medication: 08/03 12:30 VIS not applicable for this client. dwight Outcome: 14:34 Decision to Hospitalize by Provider. errol 08/04 09:02 Admitted to Med/surg accompanied by tech, via wheelchair, room 423, Report called to ld1 [place] Condition: stable Instructed on the need for admit. 09:03 Patient left the ED. ld1 NIH Stroke Scale - NIH Stroke Score Date: 08/03/2022 Time: 12:23 Total Score = 0 1a. Level of Consciousness (LOC) - 0(Alert) 1b. Level of Consciousness (LOC) (Month \T\ Age) - 0(Both) 1c. LOC Commands (Open \T\ Closes Eyes/Regasification Plant Operator) - 0(Both) 2. Best Gaze (Lateral Gaze Paresis) - 0(Normal) 3. Visual Field Loss - 0(No visual loss) 4. Facial Palsy - 0(Normal) 5a. Left Arm: Motor (10-second hold) - 0(No drift) 5b. Right Arm: Motor (10-second hold) - 0(No drift) 6a. Left Leg: Motor (5-second hold - always test supine) - 0(No drift) 6b. Right Leg: Motor (5-second hold - always test supine) - 0(No drift) 7. Limb Ataxia (finger/nose \T\ heel/cruz - test with eyes open) - 0(Absent) 8. Sensory Loss (pinprick arms/legs/face) - 0(Normal) 9. Best Language: Aphasia (description/naming/reading) - 0(No aphasia) 10. Dysarthria (speech clarity - read or repeat words) - 0(Normal) 11. Extinction and Inattention (visual/tactile/auditory/spatial/personal) - 0(No abnormality) Initials: mb9 Signatures: Dispatcher [employer] Roxanne Mar RN RN ld1 Mona Renner Setul, MD MD sp3 Nataliia Mcmahan RN RN mb9
--- NOTE | 2022-08-03 14:35 | EDPHYS ---
Physician Documentation [facility] Name: Marizol Huizar Age: 77 yrs Sex: Female : 1945 Arrival Date: 08/03/2022 Time: 12:23 Bed 14 Private MD: ED Physician Rodney Caban HPI: 08/03 12:52 This 77 yrs old Female presents to ER via EMS with complaints of dizziness, near sp3 syncope, speech problem, jaw pain. 12:52 77-year-old female with a history of myocardial infarction with past stenting, sp3 diabetes, hyperlipidemia, prior CVA, current UTI on Cipro, patient also taking aspirin and Plavix, now presents with chief complaint dizziness, near syncope, speech abnormality. 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 Her past CVA presented with garbled speech. Her symptoms have since improved however she still feels a sense of generalized weakness. She denies chest pain per se or difficulty breathing. On ROS, she denies headache, neck pain, abdominal pain, lower back pain, rash, vomiting or diarrhea, or any other symptoms at this time.. Historical: - Allergies: 12:26 No Known Allergies; mb9 - Home Meds: 12:26 Cipro Oral [Active]; mb9 - PMHx: 12:26 CVA; Diabetes - NIDDM; High Cholesterol; Hypertension; UTI; mb9 - PSHx: 12:26 None; mb9 - Immunization history:: Adult Immunizations up to date. - Social history:: Smoking status: Patient denies any tobacco usage or history of. ROS: 12:58 Constitutional: Negative for fever, chills, and weight loss, Eyes: Negative for injury, sp3 pain, redness, and discharge, ENT: Negative for injury, pain, and discharge, Neck: Negative for injury, pain, and swelling, Respiratory: Negative for shortness of breath, cough, wheezing, and pleuritic chest pain, Abdomen/GI: Negative for abdominal pain, nausea, vomiting, diarrhea, and constipation, Back: Negative for injury and pain, MS/Extremity: Negative for injury and deformity, Psych: Negative for depression, anxiety, suicide ideation, homicidal ideation, and hallucinations, Allergy/Immunology: Negative for hives, rash, and allergies, Endocrine: Negative for neck swelling, polydipsia, polyuria, polyphagia, and marked weight changes, Hematologic/Lymphatic: Negative for swollen nodes, abnormal bleeding, and unusual bruising. 12:58 All other systems are negative. Exam: 13:00 Constitutional: This is a well developed, well nourished patient who is awake, alert, sp3 and in no acute distress. Head/Face: Normocephalic, atraumatic. Eyes: Pupils equal round and reactive to light, extra-ocular motions intact. Lids and lashes normal. Conjunctiva and sclera are non-icteric and not injected. Cornea within normal limits. Periorbital areas with no swelling, redness, or edema. ENT: Nares patent. No nasal discharge, no septal abnormalities noted. External auditory canals are clear. Oropharynx with no redness, swelling, or masses, exudates, or evidence of obstruction, uvula midline. Mucous membranes moist. Neck: Trachea midline, no thyromegaly or masses palpated, and no cervical lymphadenopathy. Supple, full range of motion without nuchal rigidity, or vertebral point tenderness. No Meningismus. Chest/axilla: Normal chest wall appearance and motion. Nontender with no deformity. No lesions are appreciated. Cardiovascular: Regular rate and rhythm with a normal S1 and S2. No gallops, murmurs, or rubs. Normal PMI, no JVD. No pulse deficits. Respiratory: Lungs have equal breath sounds bilaterally, clear to auscultation and percussion. No rales, rhonchi or wheezes noted. No increased work of breathing, no retractions or nasal flaring. Abdomen/GI: Soft, non-tender, with normal bowel sounds. No distension or tympany. No guarding or rebound. No evidence of tenderness throughout. Skin: Warm, dry with normal turgor. Normal color with no rashes, no lesions, and no evidence of cellulitis. MS/ Extremity: Pulses equal, no cyanosis. Neurovascular intact. Full, normal range of motion. Neuro: Awake and alert, GCS 15, oriented to person, place, time, and situation. Cranial nerves II-XII grossly intact. Motor strength 5/5 in all extremities. Sensory grossly intact. Cerebellar exam normal. Normal gait. Psych: Awake, alert, with orientation to person, place and time. Behavior, mood, and affect are within normal limits. 13:00 ECG was reviewed by the Attending Physician. KG demonstrates normal sinus rhythm at 61 bpm with normal intervals, normal axis, normal QRS, normal ST/T segments without evidence of acute ischemia with isolated flat lead in aVL. Vital Signs: 12:23 BP 112 / 63; Pulse 62; Resp 14; Temp 97.3; Pulse Ox 100% on R/A; Weight 68.95 kg; mb9 Height 5 ft. 3 in. (160.02 cm); Pain 1/10; 15:49 BP 120 / 92; Pulse 53; Resp 14; Pulse Ox 100% on R/A; mb9 17:13 BP 127 / 49; Pulse 63; Resp 14; Pulse Ox 100% on R/A; Pain 0/10; mb9 12:23 Body Mass Index 26.93 (68.95 kg, 160.02 cm) mb9 NIH Stroke Scale Scores: 12:23 NIHSS Score: 0 mb9 MDM: 12:32 Patient medically screened. sp3 13:00 Data reviewed: vital signs, nurses notes, lab test result(s), EKG, radiologic studies. sp3 ED course: 77-year-old female with apparent symptoms of TIA and possible ACS. Work-up will include EKG which is already been reviewed, laboratory values, and MRI of the brain assessing for possible ischemic injury. We will admit patient for 23-hour observation for cardiac rule out and neurological serial examinations. Patient is already on aspirin and Plavix and I have not given any additional anticoagulation at this time as her symptoms are resolving.. 08/03 12:33 Order name: Basic Metabolic Panel; Complete Time: 14:21 3 08/03 12:33 Order name: CBC with Diff; Complete Time: 14:21 3 08/03 12:33 Order name: D-Dimer; Complete Time: 14:21 3 08/03 12:33 Order name: LFT's; Complete Time: 14:21 3 08/03 12:33 Order name: Magnesium; Complete Time: 14:21 3 08/03 12:33 Order name: NT PRO-BNP; Complete Time: 14:21 3 08/03 12:33 Order name: PT-INR; Complete Time: 14:21 3 08/03 12:33 Order name: Troponin HS; Complete Time: 14:21 sp3 08/03 14:30 Order name: PT-INR sp3 08/03 16:44 Order name: SARS-COV-2 Antigen Rapid bd 08/03 17:07 Order name: Magnesium EDMS 08/03 17:07 Order name: Phosphorus EDMS 08/03 17:07 Order name: T4 Free EDMS 08/03 17:07 Order name: Thyroid Stimulating Hormone EDMS 08/03 12:33 Order name: XRAY Chest (1 view); Complete Time: 14:21 sp3 08/03 12:50 Order name: MRI Stroke Protocol sp3 08/03 17:00 Order name: Echo with Doppler EDMS 08/03 17:00 Order name: ERT ORTHOSTATIC V/S EDNC 08/03 17:07 Order name: Urinalysis EDNC 08/03 17:07 Order name: Basic Metabolic Panel EDMS 08/03 17:07 Order name: Basic Metabolic Panel EDMS 08/03 17:07 Order name: CBC with Automated Diff EDMS 08/03 17:07 Order name: CBC with Automated Diff EDMS 08/03 17:07 Order name: NT PRO-BNP EDMS 08/03 17:07 Order name: NT PRO-BNP EDMS 08/03 19:34 Order name: Urine Dipstick-Ancillary EDMS 08/03 21:05 Order name: Glucose, Ancillary Testing EDMS 08/03 21:05 Order name: Glucose, Ancillary Testing EDMS 08/03 21:32 Order name: Troponin High Sensitivity EDNC 08/04 02:38 Order name: Troponin High Sensitivity [facility] 08/03 12:33 Order name: EKG; Complete Time: 12:33 3 08/03 12:33 Order name: Cardiac monitoring; Complete Time: 12:39 3 08/03 12:33 Order name: EKG - Nurse/Tech; Complete Time: 12:39 3 08/03 12:33 Order name: IV Saline Lock; Complete Time: 12:39 3 08/03 12:33 Order name: Labs collected and sent; Complete Time: 12:58 3 08/03 12:33 Order name: O2 Per Protocol; Complete Time: 12:39 3 08/03 12:33 Order name: O2 Sat Monitoring; Complete Time: 12:39 3 08/03 17:00 Order name: ERT ORTHOSTATIC V/S EDMS 08/03 17:00 Order name: Carotid Artery Bilateral EDMS 08/03 17:07 Order name: 60g Consistent Carbohydrate (ADA ) EDMS 08/03 19:23 Order name: MRI EDMS 08/03 19:44 Order name: MRI EDMS 08/03 19:46 Order name: MRI EDMS Administered Medications: No medications were administered Disposition Summary: 08/03/22 14:34 Hospitalization Ordered Hospitalization Status: Observation sp3 Provider: Henry Bassett sp3 Condition: Stable sp3 Problem: an acute exacerbation sp3 Symptoms: are unchanged sp3 Bed/Room Type: Standard sp3 Location: Telemetry/MedSurg (observation)(08/04/22 07:44) em1 Room Assignment: 425(08/04/22 07:44) em1 Diagnosis - Chest pain, unspecified sp3 - Personal history of transient ischemic attack (TIA), and cerebral infarction sp3 without residual deficits Forms: - Medication Reconciliation Form sp3 - SBAR form sp3 NIH Stroke Scale - NIH Stroke Score Date: 08/03/2022 Time: Total Score = 0 1a. Level of Consciousness (LOC) - 0(Alert) 1b. Level of Consciousness (LOC) (Month \T\ Age) - 0(Both) 1c. LOC Commands (Open \T\ Closes Eyes/Fisher Sponge Hooking) - 0(Both) 2. Best Gaze (Lateral Gaze Paresis) - 0(Normal) 3. Visual Field Loss - 0(No visual loss) 4. Facial Palsy - 0(Normal) 5a. Left Arm: Motor (10-second hold) - 0(No drift) 5b. Right Arm: Motor (10-second hold) - 0(No drift) 6a. Left Leg: Motor (5-second hold - always test supine) - 0(No drift) 6b. Right Leg: Motor (5-second hold - always test supine) - 0(No drift) 7. Limb Ataxia (finger/nose \T\ heel/cruz - test with eyes open) - 0(Absent) 8. Sensory Loss (pinprick arms/legs/face) - 0(Normal) 9. Best Language: Aphasia (description/naming/reading) - 0(No aphasia) 10. Dysarthria (speech clarity - read or repeat words) - 0(Normal) 11. Extinction and Inattention (visual/tactile/auditory/spatial/personal) - 0(No abnormality) Initials: mb9 Signatures: Dispatcher [employer] Kp Zhang em1 Helene Snyder RN RN ss Rodney Caban MD MD sp3 Nataliia Mcmahan RN RN mb9 Corrections: (The following items were deleted from the chart) 18:43 14:34 Telemetry/MedSurg (observation) 3 18:43 14:34 [facility] 08/04 07:44 08/03 18:43 [facility] ER [facility] ss em1 08/04 07:44 08/03 18:43 [facility]- em1
[2022-08-03 15:39] LABS: Protime INR 1.08
[2022-08-03] MEDS ORDERED: HYDROCODONE/APAP 5/325 MG TAB PO PRN (16:53)
[2022-08-03] MEDS ORDERED: ACETAMINOPHEN 325 MG TABLET PO PRN (16:53)
[2022-08-03] MEDS ORDERED: ONDANSETRON 4 MG/2 ML VIAL IV PRN (17:04)
--- NOTE | 2022-08-03 17:06 | P.HP ---
Certification for Inpatient Patient admitted to: Observation With expected LOS: <2 Midnights Patient will require the following post-hospital care: None Practitioner: I am a practitioner with admitting privileges, knowledge of patient current condition, hospital course, and medical plan of care. 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 Patient reported that as she was standing she suddenly started feeling lightheaded and became dizzy. She had to quickly sit down as she was about to pass out. While sitting down patient reported that she had trouble with expressing herself as she could not get her words out. Patient reported associated signs and symptoms of diaphoresis, generalized weakness, nausea and jaw pain. Patient rated pain as 3/10 in severity and described pain as aching quality. Patient reported that she was diagnosed with a UTI 2 days ago and was placed on antibiotics. Patient denies any other signs or symptoms. Symptoms are aggravated or relieved by nothing. Patient decided to present to the hospital for medical evaluation. At time of assessment patient reported improvement in speech. Allergies No Known Allergies Allergy (Unverified 05/11/12 22:10) Home Medications: Metformin HCl [Metformin HCl ER] 500 mg PO BID 11/03/14 Escitalopram Oxalate [Lexapro] 10 mg PO DAILY 01/30/18 Lisinopril/Hydrochlorothiazide [Lisinopril-Hctz 10-12.5 mg Tab] 12.5 each PO BID 01/30/18 Lovastatin 40 mg PO BEDTIME 01/30/18 Multivitamin/Iron/Folic Acid [Multi-Day Plus Iron Tablet] 1 tab PO DAILY 01/30/18 Mupirocin Oint [Bactroban 2% Ointment] 22 gm TP DAILY 01/30/18 Atorvastatin Calcium 40 mg PO BEDTIME 08/03/22 Isosorbide Mononitrate [Isosorbide Mononitrate ER] 30 mg PO DIRECTED 08/03/22 Lisinopril/Hydrochlorothiazide [Lisinopril-Hctz 10-12.5 mg Tab] 12.5 mg PO BID 08/03/22 - Past Medical/Surgical History Diabetic: Yes -: Overweight -: Lymphedema -: DM -: Hyperlipidemia Past Surgical History: Reviewed- Non-Contributory - Family History Family History: Reviewed- Non-Contributory - Social History Smoking Status: Never smoker Alcohol use: No CD- Drugs: No Caffeine use: Yes Place of Residence: Home Review of Systems General: Sweats, Weakness Eyes: Unremarkable ENT: Unremarkable Respiratory: Unremarkable Cardiovascular: Light Headedness Gastrointestinal: Nausea Genitourinary: Unremarkable Musculoskeletal: Other (Jaw pain) Integumentary: Unremarkable Neurological: Change in Speech, Other (Dizziness) Lymphatics: Unremarkable Physical Examination - Physical Exam General: Alert, In no apparent distress, Oriented x3, Cooperative HEENT: Atraumatic, PERRLA, Mucous membr. moist/pink, EOMI, Sclerae nonicteric Neck: Supple, 2+ carotid pulse no bruit, No LAD, Without JVD or thyroid abnormality Respiratory: Clear to auscultation bilaterally, Normal air movement Cardiovascular: No edema, Regular rate/rhythm, Normal S1 S2 Capillary refill: <2 Seconds Gastrointestinal: Normal bowel sounds, Soft and benign, No tenderness Musculoskeletal: No clubbing, No swelling, No contractures, No tenderness Integumentary: No rashes, No breakdown, No significant lesion, No tenderness/swelling Neurological: Normal speech, Normal tone, Normal affect Lymphatics: No axilla or inguinal lymphadenopathy - Studies Laboratory Data (last 24 hrs) 08/03/22 15:22: PT 11.9, INR 1.08 08/03/22 12:56: PT 12.3, INR 1.12 08/03/22 12:56: WBC 8.50, Hgb 10.9 L, Hct 32.8 L, Plt Count 248 08/03/22 12:56: Sodium 140, Potassium 4.7, BUN 36 H, Creatinine 1.58 H, Glucose 157 H, Magnesium 1.5 L, Total Bilirubin 0.4, AST 13 L, ALT 22, Alkaline Phos phatase 84 Assessment and Plan - Plan -- TIA. MRI brain does not indicate any acute intracranial abnormality. Neurologist consulted. Continue aspirin and statin. We will await further recommendations --Near syncope. Echocardiogram and carotid Doppler pending. Cardiology consulted. Will await further recommendations. Fall precautions --UTI POA. Patient placed on antibiotics. Urine cultures pending --Hypertension. Stable. Continue home medications. --History of CVA. Continue aspirin and statin. -- DM2. BS monitoring with sliding scale --HLD. Continue statin. --Suspected ACS. We will trend serial troponins. Echocardiogram pending. Telemetry to monitor for any significant arrhythmia. Cardiology on board. We will await further recommendations. --CKD 3B. Patient has longstanding CKD 3B. Slight depreciation in renal functions noted compared to levels 1 year ago Patient instructed to follow-up with her PCP and nephrology outpatient for further management. We will hold off on PIA inhibitors. Avoid NSAIDs and nephrotoxins --Anemia of chronic disease. H&H stable. We will continue to monitor hemoglobin and transfuse if less than 7.0. --DVT prophylaxis with heparin subQ. Discharge Plan: Home Plan to discharge in: 48 Hours - Advance Directives Does patient have a Living Will: No Does patient have a Durable POA for Healthcare: No - Code Status/Comfort Care Code Status Assessed: Yes Physician Review: Patient Assessed, Agree with Above Assessment and Plan Critical Care: No
[2022-08-03 18:06] VITALS: BMI 26.9
--- NOTE | 2022-08-03 18:41 | RAD REPORT ---
EXAM DESCRIPTION: US - CP - 08/03/2022 6:16 pm CLINICAL HISTORY: Near Syncope COMPARISON: No comparisons TECHNIQUE: Real-time sonographic evaluation of both carotid systems was performed. Doppler interroga tion was performed with waveform tracing bilaterally. FINDINGS: Normal high resistance waveforms are noted in both external carotid arteries. The common c arotid arteries and internal carotid arteries show normal low resistance waveforms. Hard plaque is present at both the right and left carotid bulbs and distal common carotid artery. Pea k systolic and end diastolic velocity values and the ICA/CCA ratios are in the non-hemodynamically si gnificant range. Antegrade flow seen in both vertebral arteries. IMPRESSION: Hard plaque present at the distal common carotid arteries and carotid bulbs. No evidence of a hemodynamically significant stenosis.
--- NOTE | 2022-08-03 19:22 | RAD REPORT ---
EXAM DESCRIPTION: MRI - Brain W/Wo Cont - 08/03/2022 7:14 pm CLINICAL HISTORY: TIA symptoms; h/o CVA COMPARISON: MRA Head Wo Cont dated 08/03/2022 TECHNIQUE: Sagittal T1-weighted images were obtained along with PD/heavily T2-weighted and T2-FLAIR images. Axial DWI and ADC mapping sequences were also obtained along with coronal heavily T2-weighted images were obtained. Post contrast enhanced images were obtained. FINDINGS: No intracranial hemorrhage, mass or acute infarction. No edema or shift of midline structu res. No extra-axial fluid collections. Signal voids are seen as a normal finding in the major intracr anial vessels. No significant white matter disease. No abnormal enhancement. No mastoid effusion.Paranasal sinuses are clear. IMPRESSION: No acute intracranial abnormality. No abnormal enhancement.
[2022-08-03 19:34] LABS: Urine Blood Negative (Negative); Urine Glucose Negative (Negative); Urine Protein Trace (Negative); Urine Specific Gravity 1.025 (1.005-1.030)
--- NOTE | 2022-08-03 19:43 | RAD REPORT ---
EXAM DESCRIPTION: MRI - MRA Head Wo Cont - 08/03/2022 7:14 pm CLINICAL HISTORY: TIA symptoms h/o CVA CVA COMPARISON: Brain W/Wo Cont dated 08/03/2022 FINDINGS: 3D noncontrast efah-yp-guergy MR angiography of the [place] was performed. The anterior circulation is intact. High-grade focal stenosis of the left P2 segment of the posterior cerebral artery along its proximal aspect. Forward flow seen in codominant vertebral arteries. The visualized dural venous sinuses appear patent. IMPRESSION: High-grade focal stenosis of the left proximal P2 segment of the posterior cerebral skye ry. The anterior circulation is unremarkable.
--- NOTE | 2022-08-03 19:45 | RAD REPORT ---
EXAM DESCRIPTION: MRI - MRA Neck W/Wo Cont - 08/03/2022 7:14 pm CLINICAL HISTORY: TIA COMPARISON: None. TECHNIQUE: Magnetic resonance angiogram of the neck was performed. 15 cc MultiHance was administered intravenously. 3D MIPS reconstruction performed FINDINGS: The common carotid, internal carotid and external carotid arteries do not demonstrate a si gnificant stenosis. The vertebral arteries are codominant without visualization of an abnormality. IMPRESSION: No flow limiting stenosis within the neck. NASCET criteria used. Mild 0-49% stenosis Moderate 50-69% stenosis Severe 70-99% stenosis
[2022-08-03 20:00] LABS: SARS-CoV-2 Antigen Rapid Res Negative (Negative)
[2022-08-03] MEDS ORDERED: HEPARIN 5000 UNIT/ML 1 ML VIAL ONE (20:51)
[2022-08-03] MEDS ORDERED: ATORVASTATIN 20 MG TAB ONE (20:51)
[2022-08-03] MEDS: INSULIN -REGULAR HUMAN 50 UNIT/0.5 ML ML SQ SCH (20:56)
[2022-08-03] MEDS: HEPARIN 5000 UNIT/ML 1 ML VIAL SQ SCH (20:57)
[2022-08-03] MEDS ORDERED: HOME MED 1 EA UNK (Lovastatin [Lovastatin] 40 MG Tablet) PO SCH (21:00)
[2022-08-03] MEDS ORDERED: ATORVASTATIN 20 MG TAB PO SCH (21:00)
[2022-08-03 21:37] LABS: Magnesium 1.6 mg/dL (1.6-2.4); Phosphorus 4.5 mg/dL (2.5-4.9); Thyroid Stimulating Hormone 1.4 uIU/mL (0.358-3.740)
[2022-08-03] MEDS ORDERED: CEFTRIAXONE 1,000 MG in NA CHLORIDE 0.9% 50 ML IVPB SCH (22:00)
[2022-08-03] MEDS ORDERED: CEFTRIAXONE 1000 MG/VIAL ONE (22:42)
[2022-08-04 02:21] LABS: Absolute Lymphocytes (CBC) 1.8 K/uL (0.7-4.9); Hematocrit 29.4 % (36.0-45.0); Lymphocytes % 25.6 % (15.3-44.8); MCV 89.2 fL (80-100); MPV 9.4 fL (7.6-11.3); RBC Red Blood Cell Count 3.29 M/uL (3.86-4.86)
[2022-08-04 02:38] LABS: Potassium 4.1 mmol/L (3.5-5.1)
[2022-08-04] MEDS: INSULIN -REGULAR HUMAN 50 UNIT/0.5 ML ML SQ SCH ×2 (07:30→11:29)
[2022-08-04] MEDS ORDERED: ASPIRIN 81 MG CHEWABLE TABLET PO SCH ×2 (09:00)
[2022-08-04] MEDS ORDERED: HOME MED 1 EA UNK (Escitalopram Oxalate [Lexapro] 10 MG Tablet) PO SCH (09:00)
[2022-08-04] MEDS ORDERED: IRON PO SCH (09:00)
[2022-08-04] MEDS ORDERED: MULTIVITAMIN PO SCH (09:00)
[2022-08-04] MEDS ORDERED: FOLIC ACID PO SCH (09:00)
[2022-08-04] MEDS ORDERED: ESCITALOPRAM 20 MG TAB PO SCH (09:00)
[2022-08-04] MEDS ORDERED: MULTIVIT W/ MINERAL TAB PO SCH (09:00)
--- NOTE | 2022-08-04 09:03 | CON ---
Date of Consultation: 08/04/2022 Reason For Consultation: Near syncope and atypical chest pain. History Of Present Illness: Ms. Huizar is 77. Has a history of CAD, has had [address] Yuri wasserman. Has a history of CVA, diabetes, hypertension, dyslipidemia. She does not have any residual CVA . She had an episode when she was standing up with presyncope. After that occurred, she had a short episode of jaw pain. Denied any nausea, vomiting, diaphoresis, PND, orthopnea, pedal edema, or palp itation. She denied any chest pain or arm pain. Symptoms were not exertional. When she came in, he r creatinine was 1.56, it is now to 1.28. She had UTI. She had MRI, MRA, and carotid all of this we re normal. She is back to feeling normal today. She has not seen Dr. Franks for a while. She will make an appointment with me in the near future. Past Medical History: As stated above. Allergies: NONE. Review of Systems: Negative. Social History: Negative. Family History: Negative. Medications: At home include Lexapro, Lipitor, lisinopril with hydrochlorothiazide, Imdur, and metfo rmin. Physical Examination: Vital Signs: Stable. She was afebrile. She was in sinus rhythm. HEENT: Negative. Neck: Supple with no bruit. Chest: Clear to auscultation and percussion. Cardiac: Revealed a regular rhythm and rate. No murmurs, gallops, or rubs. Abdomen: Benign. Extremities: Revealed no clubbing, cyanosis, or edema. Diagnostic Data: As stated earlier. Impression And Plan: Jaw pain atypical, history of coronary artery disease. Troponin is negative. EKG is negative. Chest x-ray is negative. I think she needs to have an outpatient stress test by Dr Gustavo Franks in the near future. I think her presyncope was secondary to orthostatic hypotension second sarah to the lisinopril with hydrochlorothiazide on top of her urinary tract infection. She is on anti biotics. Echocardiogram is pending. I think if her echo is normal, she can go home. I do not think she had a transient ischemic attack or cerebrovascular accident. Her blood pressure and cholesterol are well controlled. She has had a negative neurological workup so far. Case was discussed with Dr Gustavo Bassett. She will follow up with Dr. Franks soon. Echocardiogram is pending. DINORA/ANTONELLA Voice ID: [id number] Report ID: [id number]
[2022-08-04] MEDS: HEPARIN 5000 UNIT/ML 1 ML VIAL SQ SCH (09:20)
[2022-08-04 09:52] VITALS: O2SAT 100
[2022-08-04] MEDS ORDERED: ISOSORBIDE MONO SR 30 MG TAB PO SCH (11:30)
--- NOTE | 2022-08-04 14:19 | ECHO ---
HEIGHT: 5 ft 3 in WEIGHT: 152 lb 0 oz DATE OF STUDY: 08/04/[address]: Henry Bassett MD 2-DIMENSIONAL: YES M.MODE: YES DOPPLER: YES COLOR FLOW: YES TDS: PORTABLE: YES DEFINITY: BUBBLE STUDY: DIAGNOSIS: NEAR SYNCOPE CARDIAC HISTORY: CATHERIZATION: YES SURGERY: NO PROSTHETIC VALVE: NO PACEMAKER: NO MEASUREMENTS (cm) DIASTOLIC (NORMALS) SYSTOLIC (NORMALS) IVSd 0.8 (0.6-1.2) LA Diam 2.4 (1.9-4.0) LVEF 81% LVIDd 4.4 (3.5-5.7) LVIDs 2.2 (2.0-3.5) %FS 49% LVPWd 0.9 (0.6-1.2) Ao Diam 2.2 (2.0-3.7) 2 DIMENSIONAL ASSESSMENT: RIGHT ATRIUM: NORMAL LEFT ATRIUM: NORMAL RIGHT VENTRICLE: NORMAL LEFT VENTRICLE: NORMAL TRICUSPID VALVE: MILD TRICUSPID REGURGITATION MITRAL VALVE: MILD MITRAL REGURGITATION PULMONIC VALVE: NORMAL AORTIC VALVE: NORMAL PERICARDIAL EFFUSION: NONE AORTIC ROOT: NORMAL LEFT VENTRICULAR WALL MOTION: NORMAL DOPPLER/COLOR FLOW: MILD TRICUSPID REGURGITATION/ MILD MITRAL REGURGITATION COMMENTS: 1. NORMAL LEFT VENTRICULAR EJECTION FRACTION 60-65% 2. NORMAL WALL MOTION 3. MILD TRICUSPID REGURGITATION 4. MILD MITRAL REGURGITATION TECHNOLOGIST: LIANG SHAW
--- NOTE | 2022-08-04 14:24 | EKG ---
Test Date: 2022-08-03 Test Time: 12:35:18 [place] Selector: AIME MEASUREMENT RESULTS: Intervals: Rate: 61 VA: 164 QRSD: 88 QT: 438 QTc: 440 [place]: P: 42 VA: 164 QRS: 9 T: 62 INTERPRETIVE STATEMENTS: Normal sinus rhythm Normal ECG Compared to ECG 08/08/2020 15:00:43 Atrial premature complex(es) no longer present Aberrant conduction of supraventricular beat(s) no longer present Electronically Signed On 08-04-22 14:21:42 SHACKLER by Kendall Nash
--- NOTE | 2022-08-04 15:47 | P.DS ---
Admission Date: 08/03/22 Discharge Date: 08/04/22 Disposition: TRANSFR TO OTHER-PSY/CD/REHAB Discharge Condition: FAIR Reason for Admission: TIA, Near Syncope Consultations: Cardiology-Dr. 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 Patient reported that as she was standing and she suddenly started feeling lightheaded and became dizzy. She had to quickly sit down as she was about to pass out. While sitting down patient reported that she had trouble with expressing herself as she could not get her words out. Patient reported associated signs and symptoms of diaphoresis, generalized weakness, nausea and jaw pain. Patient rated pain as 3/10 in severity and described pain as aching quality. Patient reported that she was diagnosed with a UTI 2 days ago and was placed on antibiotics. Initial troponin negative, EKG showed no ischemic changes. MRI of the brain showed no acute CVA. Patient was hospitalized for further management. Hospital Course: Patient placed under OBSERVATION on the medical floor. Acute CVA ruled out. Patient was seen in consultation by cardiology. Has symptoms could be related to near syncope. Troponin trended negative. Echocardiogram done was unremarkable. Near syncope suspected to be related to orthostasis given her history. She was asymptomatic during the hospital stay. MRA of the brain showed high-grade focal stenosis of the left proximal P2 segment of the posterior cerebral artery. Case discussed with neurology Dr. Rodriguez who recommended aspirin and Plavix, statins and follow-up with him in the office for arrangement for cerebral angiogram in the near future. Patient request to go home. ACS ruled out, acute CVA ruled. Vitals are stable for discharge. Vital Signs/Physical Exam: Temp Pulse Resp BP Pulse Ox 96.5 F L 57 17 114/52 L 98 08/04/22 12:00 08/04/22 12:00 08/04/22 12:00 08/04/22 12:00 08/04/22 12:00 General: Alert, In no apparent distress, Oriented x3 HEENT: Mucous membr. moist/pink Neck: Supple, JVD not distended Respiratory: Clear to auscultation bilaterally, Normal air movement Cardiovascular: No edema, Regular rate/rhythm, Normal S1 S2 Gastrointestinal: Soft and benign, Non-distended, No tenderness Musculoskeletal: No swelling Integumentary: No rashes Neurological: Normal speech, Normal strength at 5/5 x4 extr, Cranial nerves 3-12 intact Laboratory Data at Discharge: WBC 6.90 K/uL (4.3-10.9) 08/04/22 02:03 Hgb 9.8 g/dL (12.0-15.0) L D 08/04/22 02:03 Hct 29.4 % (36.0-45.0) L 08/04/22 02:03 Plt Count 231 K/uL (152-406) 08/04/22 02:03 PT 11.9 SECONDS (9.5-12.5) 08/03/22 15:22 INR 1.08 08/03/22 15:22 Sodium 139 mmol/L (136-145) 08/04/22 02:03 Potassium 4.1 mmol/L (3.5-5.1) 08/04/22 02:03 BUN 44 mg/dL (7-18) H 08/04/22 02:03 Creatinine 1.28 mg/dL (0.55-1.02) H 08/04/22 02:03 Glucose 156 mg/dL (74-106) H 08/04/22 02:03 Phosphorus 4.5 mg/dL (2.5-4.9) 08/03/22 20:58 Magnesium 1.6 mg/dL (1.6-2.4) 08/03/22 20:58 Total Bilirubin 0.4 mg/dL (0.2-1.0) 08/03/22 12:56 AST 13 U/L (15-37) L 08/03/22 12:56 ALT 22 U/L (13-56) 08/03/22 12:56 Alkaline Phosphatase 84 U/L (45-117) 08/03/22 12:56 Home Medications: Metformin HCl [Metformin ER Osmotic] 500 mg PO BID 11/03/14 Escitalopram Oxalate [Lexapro] 10 mg PO DAILY 01/30/18 Lovastatin 40 mg PO BEDTIME 01/30/18 Multivitamin/Iron/Folic Acid [Multi-Day Plus Iron Tablet] 1 tab PO DAILY 01/30/18 Mupirocin Oint [Bactroban 2% Ointment*] 22 gm TP DAILY 01/30/18 Atorvastatin Calcium 40 mg PO BEDTIME 08/03/22 Isosorbide Mononitrate [Isosorbide Mononitrate ER] 30 mg PO DAILY 08/03/22 Aspirin [Aspirin EC 81 MG] 81 mg PO DAILY #30 tab 08/04/22 Cefpodoxime Proxetil 100 mg PO BID #10 tab 08/04/22 Clopidogrel Bisulfate [Plavix] 75 mg PO DAILY #30 tab 08/04/22 New Medications: Aspirin [Aspirin EC 81 MG] 81 mg PO DAILY #30 tab Cefpodoxime Proxetil 100 mg PO BID #10 tab Clopidogrel Bisulfate [Plavix] 75 mg PO DAILY #30 tab Diet: ADA Activity: Ad nhi Followup: Ronnie Rodriguez MD [ASSOCIATE-ACTIVE - CAN ADMIT] - 1-2 Weeks NONE,NONE [Primary Care Provider] - 1-2 Weeks
[2022-08-04 15:48] VITALS: BP 132/56; TEMP 96.9
[2022-08-04] MEDS ORDERED: ATORVASTATIN 40 MG TAB PO SCH (21:00)
== END 2022-08-04 16:28 | disposition home or self-care (01) ==
LOC: ER 12:09 → ERHOLD 16:51 → 4TH 08-04 08:18
PROVIDERS: ADMIT Internal Medicine; ATTEND Internal Medicine
DX: R55 Syncope and collapse (principal); N30.00 Acute cystitis without hematuria; R68.84 Jaw pain; I66.22 Occlusion and stenosis of left posterior cerebral artery; I10 Essential (primary) hypertension; E11.9 Type 2 diabetes mellitus without complications; E78.5 Hyperlipidemia, unspecified; N18.32 Chronic kidney disease, stage 3b; D63.1 Anemia in chronic kidney disease; Z86.73 Personal history of transient ischemic attack (TIA), and cerebral infarction without residual deficits; Z20.822 Contact with and (suspected) exposure to COVID-19
CPT/HCPCS: 93005; 93306; 85025 ×2; 80048 ×2; 36415; 83735 ×2; 84100; 85610 ×2; 82947 ×3; 85379; 80076; 84443; 81003; 84484 ×3; 84439; 83880 ×2; 71045; 93880; 70553; 70544; 70549; 99285; 87811; A9577; J1644 ×2; G0378 ×4

== ENCOUNTER 2023-03-03 11:39 | Observation (INO) | payer OTHER ==
--- OUTSIDE RECORDS SUMMARY | 2023-03-03 11:50 | XMS REPORT | Continuity of Care Document ---
:1945 Author Organization [facility] t Address [address] [facility] [address]. [address] [place] [address] Care Team Providers Name Role Phone Asked, [...] Details Category Date Date Treatment Clinician Date SAH SAH Disease Recurre [facility] (subarachn (subarachn nce 08-09 Tisha kes oid oid 00:00: Medical hemorrhage hemorrhage 00 Ce nter ) ) DM DM Disease Recurre [facility] (diabetes (diabetes nce 08-09 [facility] mellitus) mellitus) 00:00: Medi orly 00 Center Hypertensi Hypertensi Disease Active [facility] Received Received Disease Active [facility] tissue tissue 08-09 plasminoge plasminoge 00:00: Me dical n n 00 Center activator activator (t-PA) (t-PA) less than less than 24 hours 24 hours prior to prior to arrival arrival Stroke Stroke Disease Recurre [facility] (cerebrum) (cerebrum) nce 1-16 Tisha kes 00:00: Medical Center Allergies, Adverse Reactions, Alerts Allergy Allergy Status Severity Reaction(s) Onset Inactive Treating Comm ents Source Name Type Date Date Clinician No Known DA Active U 2019-07 [facility] 00:[facility]: [address] No Known DA Active U 2019-07 [facility] Allergie 0[facility] 00:[facility]: [address] NO KNOWN Allergy Active [facility] Social History Social Habit Start Date Stop Date Quantity Comments Source Sex Assigned At [birth year] [facility] 00:00:00 00:00:00 [facility] Smoking Status Start Date Stop Date Source Tobacco smoking consumption unknown [facility] Medications Ordered Filled Start Stop Current [...] [address] MG chewable 1-18 by mouth [facility] tablet 13:34: daily. Medical [facility] Center clopidogreL Yes 75mg QD Take [address] [facility] (PLAVIX) 75 1-18 by mouth [facility] mg tablet 13:34: daily. Medica l 36 Center triamterene Yes 1{capsu QD Take 1 C [...] I St hydroCHLORO 1-18 tablets by Tisha 2nd Watchcharmaine thiazide 13:34: mouth Medical (PRINZIDE,Z 36 daily. Center ESTORETIC) 10-12.5 mg per tablet aspirin 81 Yes 81mg QD Take [address] MG chewable 1-18 by mouth Luke [facility] tablet 13:34: daily. Medical [facility] clopidogreL Yes 75mg QD Take [address] (PLAVIX) 75 1-18 by mouth Luke s mg tablet 13:34: daily. Medica l 36 Center acetaminoph 0 2022- No 650mg Take [address] en 1-18 -13 tablets [facility] (TYLENOL) 00:00: 23:59 (650 mg Medi orly 325 MG 00 :00 total) by Center tablet mouth every 6 (six) hours as needed for up to 360 days. ascorbic 2020-0 Yes QD Take by Method i acid 9-[address] (VITAMIN C 12:15: daily. Hospi ta ORAL) 34 l B 2020-0 Yes 1{tbl} QD Take 1 Methodi complex-vit 9-[address] [facility] 12:15: mouth Hospita C-folic 34 daily. l acid-copper -zinc (FOLBEE PLUS 5 MG WITH COPPER AND ZINC) 5-1.5-25 mg tablet per tablet nutritional 2020-0 Yes Q.5D Take by Met hodi supplement- 9-[address] fiber 12:15: (two) Hospita liquid 34 times a l day. Juice Plus UNABLE TO 2020-0 Yes QD Take by Metho di FIND -[address] 12:15: daily. Hospita 34 Vitamin D3 l lisinopriL 2020-0 Yes QD Take by Meth rj 10 mg -[address] tablet 1 12:15: daily. Hospita [...] MG 12:15: daily. Hospita tablet 34 l Vital Signs Vital Name Observation Time Observation Value Comments Source WEIGHT 2020-08-08 20:45:00 67 kg HEIGHT 2020-08-08 20:45:00 162.6 cm WEIGHT 2020-08-08 20:45:00 67 kg HEIGHT 2020-08-08 20:45:00 162.6 cm Procedures This patient has no known procedures. Plan of Care Planned Activity Planned Date Details Comments Source Future Scheduled 2023-03-24 Influenza Vaccine (#1) [facility] 00:00:00 [code = Influenza Medical Ce nter Vaccine (#1)] Future Scheduled 2022-07-[address] [facility] Test 00:00:00 (12+) [code = Medical Center DEPRESSION SCREENING (12+)] Future Scheduled 2022-07-24 FALLS RISK SCREENING [facility] Test 00:00:00 [code = FALLS RISK Medical C enter SCREENING] Future Scheduled 2022-07-[address] [facility] Test 00:00:00 (12+) [code = Medical Center DEPRESSION SCREENING (12+)] Future Scheduled 2022-07-24 FALLS RISK SCREENING [facility] Test 00:00:00 [code = FALLS RISK Medical C enter SCREENING] Future Scheduled 2022-07-07 COVID-19 VACCINE (#1) Me [facility] Test 04:26:59 [code = COVID-19 VACCINE (#1)] Future Scheduled 2022-07-07 Hepatitis C screening [facility] Test 04:26:59 (procedure) [code = 443748013] Future Scheduled 2022-07-07 COLONOSCOPY SCREENING [facility] Test 04:26:59 [code = COLONOSCOPY SCREENING] Future Scheduled 2022-07-07 SHINGLES VACCINES (1 [facility] Test 04:26:59 of 2) [code = SHINGLES VACCINES (1 of 2)] Future Scheduled 2022-07-07 65+ [facility]OCOCCAL [facility] Test 04:26:59 VACCINE (1 - PCV) [code = 65+ PNEUMOCOCCAL VACCINE (1 - PCV)] Future Scheduled 2022-07-07 BREAST [facility]CER [facility] Test 04:26:59 SCREENING [code = BREAST CANCER SCREENING] Future Scheduled 2022-07-07 INFLUENZA VACCINE [facility] Test 04:26:59 [code = INFLUENZA VACCINE] Future Scheduled 2022-03-24 INFLUENZA VACCINE (#1) [facility] 00:00[facility]00 [code = INFLUENZA Medical Ce nter VACCINE (#1)] Future Scheduled 2021-02-[address] Tisha kes Test 00:00:00 measurement Medical Center (procedure) [code = 50568321] Future Scheduled 2021-02-[address] Tisha kes Test 00:00:00 measurement Medical Center (procedure) [code = 09561581] Future Scheduled 2012-07-[address] [facility] Test 00:00:00 WELLNESS (YEAR 2 or Medical Center FIRST YEAR if no IPPE) [code = MEDICARE ANNUAL WELLNESS (YEAR 2 or FIRST YEAR if no IPPE)] Future Scheduled 2012-07-[address] [facility] Test 00:00:00 WELLNESS (YEAR 2 or Medical Center FIRST YEAR if no IPPE) [code = MEDICARE ANNUAL WELLNESS (YEAR 2 or FIRST YEAR if no IPPE)] Future Scheduled 1996 SHINGLES VACCINES ([address] [facility] 00:00:00 of 2) [code = SHINGLES Medic al Center VACCINES (1 of 2)] Future Scheduled 1996 SHINGLES VACCINES ([address] [facility] 00:00:00 of 2) [code = SHINGLES Medic al Center VACCINES (1 of 2)] Future Scheduled 1965 DTAP/TDAP/TD VACCINES [facility] 00:00:00 (1 - Tdap) [code = Medical C enter DTAP/TDAP/TD VACCINES (1 - Tdap)] Future Scheduled 1965 DTAP/TDAP/TD VACCINES [facility] 00:00:00 (1 - Tdap) [code = Medical C enter DTAP/TDAP/TD VACCINES (1 - Tdap)] Future Scheduled 1964 HEPATITIS C SCREENING [facility] 00:00:00 [code = HEPATITIS C Medical Center SCREENING] Future Scheduled 1964 HEPATITIS C [facility]CRE[facility]ING [facility] 00:00:00 [code = HEPATITIS C Medical Center SCREENING] Future Scheduled [address] [facility] Test 00:00:00 Counseling and Medical Cente r Screening (12+) [code = Tobacco Cessation Counseling and Screening (12+)] Future Scheduled [address] [facility] 00:00:00 Counseling and Medical Cente r Screening (12+) [code = Tobacco Cessation Counseling and Screening (12+)] Future Scheduled [address] EXAM [facility] 00:00:00 [code = DIABETIC EYE Medical Center EXAM] Future Scheduled [address] [facility] 00[facility] examination Medical Center (regime/therapy) [code = 628635362] Future Scheduled 1956 Urine screening for [facility] 00:00:00 protein (procedure) Medical Center [code = 320840971] Future Scheduled [address]YE EXAM [facility] 00:00:00 [code = DIABETIC EYE Medical Center EXAM] Future Scheduled [address] [facility] Test 00:00:00 examination Medical Center (regime/therapy) [code = 015064926] Future Scheduled 1956 Urine screening [facility] Test 00:00:00 protein (procedure) [facility] [code = 734181477] Future Scheduled 1952 PNEUMOCOCCAL 65+ Y[facility] Test 00:00:00 (1 - PCV) [code = Medical Ce nter PNEUMOCOCCAL 65+ YRS (1 - PCV)] Future Scheduled 1952 PNEUMOCOCCAL 65+ Y[facility] Test 00:00:00 (1 - PCV) [code = Medical Ce nter PNEUMOCOCCAL 65+ YRS (1 - PCV)] Future Scheduled 1947[birth year]01-27 COVID-19 VACCINE (#1) [facility] 00:00:00 [code = COVID-[address] VACCINE (#1)] Future Scheduled 1946-01-27 COVID-19 VACCINE (#1) [facility] 00:00:00 [code = COVID-[address] VACCINE (#1)] Future Scheduled 1945 DXA SCAN [code = DXA [facility] Test 00:00:00 SCAN] [facility] Future Scheduled 1945 DXA SCAN [code = DXA [facility] Test 00:00:00 SCAN] [facility] Encounters Start End Encounter Admission Attending Care Care Encounter Source Date/Time Date/Time Type Type Clinicians Facility Department ID 2021-04-30 Inpatient ER RENEE [facility] Neuro ICU [id number] [facility] 23:46:07 [facility] 2020-05-02 Inpatient EL Brianahi, [facility] [id number] [facility] 12:00:00 [facility] [address] [facility] 2020-11-24 2020-11-24 Outpatient RIMA [facility] [id number] [place] 00:00:00 00:00:00 WIL [address] 2020-11-24 2020-11-24 Outpatient RIMA [facility] [id number] [place] 00:00:00 00:00:[address] WIL [address] 2020-03-31 2020-03-31 Outpatient COSELLI, [facility] [id number] [place] 00:00:00 00:00:00 WIL 310 Method i 2020-03-24 2020-03-24 Outpatient COSELLI, [facility] [id number] [place] 00:00:00 00:00:00 WIL 434 Method i 2020-03-24 2020-03-24 Outpatient COSELLI, [facility] [id number] [place] 00:00:00 00:00:00 WIL 435 Method i 2019-09-27 2019-09-27 Outpatient COSELLI, [facility] [id number] [place] 00:00:00 00:00:00 WIL 733 Method i 2019-09-27 2019-09-27 Outpatient COSELLI, [facility] [id number] [place] 00:00:00 00:00:00 WIL 220 Method i 2019-09-27 2019-09-27 Outpatient COSELLI, [facility] [id number] [place] 00:00:00 00:00:00 WIL 507 Method i 2019-09-27 2019-09-27 Outpatient COSELLI, [facility] [id number] [place] 00:00:00 00:00:00 WIL 545 Method i 2019-09-27 2019-09-27 Outpatient COSELLI, [facility] [id number] [place] 00:00:00 00:00:00 WIL 595 Method i 2019-09-27 2019-09-27 Outpatient COSELLI, [facility] [id number] [place] 00:00:00 00:00:00 WIL 667 Method i 2019-04-12 2019-05-13 Outpatient C K[facility] [id number] [facility] 12:29:00 23:59:00 [facility] Medic al Center Results Test Description Test Time Test Comments Results Result Comments Source POCT-GLUCOSE METER 2020-08-10 11:20:00 Test Item Value Reference Range Interpretation Comme nts POC-GLUCOSE METER (BENARA) 144 mg/dL 70-110 H : TESTED AT [facility] [address] [facility] (test code = 1538) HENRY Ortega [place], [address]: Forms Builder/Techni john ID = [id number] for MARIAMA LOCKHART POCT-GLUCOSE [id number] 07:36:00 Test Item Value Reference Range Interpretation Comments POC-GLUCOSE METER 125 mg/dL 70-110 H : TESTED A T [facility] [address]20 (BEAKER) (test code = LUIS ALBERTO [place], 1538) [address]: Forms Builder/Techni john ID = [id number] for MARIAMA GARCES BASIC METABOLIC [id number] 04:00:00 Test Item Value Reference Range Interpretation [...] S NOT APPLICABLE FOR DIALYSIS PATIEN TS. Forms Builder ID - PIAYA LCBC W/PLT COUNT & AUTO [id number] 03:35:00 Test Item Value Reference Range Interpretation [...] PERCENT (BEAKER) (test code = 2801) POCT-GLUCOSE [id number] 22:52:00 Test Item Value Reference Range Interpretation Comments POC-GLUCOSE METER 158 mg/dL 70-110 H : TESTED A T [facility] 67[address] (BEAKER) (test code [facility], = 1538) [address]: Forms Builder/Techni john ID = [id number] for AMITA MAGALLANES MR, BRAIN, WITHOUT [id number] 16:50:00Unlisted Reason for Exam - Click Yes and Enter Reason Below->NoDeos the patient have an implantedelectronic device?->NoANDREA [facility]: [facility] : 1945 Sex: FFINAL REPORT MR, BRAIN, [...] MDReport Verified Date/Time: 08/09/2020 16:50:49 Reading Location: [facility] C0[facility] Neuro Reading Room SARS-COV2/RT-PCR ([facility])2020-08-09 13:04:00 Test Item Value Reference Range Interpretation Comments SARS-COV2/RT-PCR (test Negative Not Detected, Negative, code = 8398835) See external report for linked test SARS-COV-2 PERFORMING LAB [facility] DIANE (test code = 0361750) Negative result for this test determines that [...] of the Act.Fact Sheet for Healthcare Prov iders:https://www.Transporeon/sites/default/files/product/documents/Fact_Sheet_HC _Ohbzdekfa_Lnsy_RUAD-DfI-5.pdfFact Sheet for Healthcare Patients:https://www.[employer]/sites/default/files/product/docume nts/Nhnt_Zngdb_Getxkvbb_Rgzy_OAHJ-ObM-5.pdfPerforming Laboratory:[facility], [place] [id number] [id number] 11:59:00 Test Item Value Reference Range Interpretation Comments HEMOGLOBIN A1C (LEXA) (test code = 7.5 % 4.3-6.1 H 368) POCT-GLUCOSE [id number] 10:50:00 Test Item Value Reference Range Interpretation Comments POC-GLUCOSE METER 176 mg/dL 70-110 H : TESTED A T [facility] 6720 (LEXA) (test code = LUIS ALBERTO Per [facility], 1538) [address]: Forms Builder/Techni john ID = [id number] for JEANETH THOMAS B-TYPE NATRIURETIC FACTOR (BNP)2020-08-09 10:29:00 Test Item Value Reference Range Interpretation Comments B-TYPE NATRIURETIC PEPTIDE (BEAKER) 34 pg/mL 0-100 (test code = 700) Forms Builder ID - DESTINY LPOCT-GLUCOSE [id number] 07:43:00 Test Item Value Reference Range Interpretation Comments POC-GLUCOSE METER 129 mg/dL 70-110 H : TESTED A T [facility] 6720 (BEAKER) (test code = LUIS ALBERTO [place], 1538) [address]: Forms Builder/Techni john ID = [id number] for JEANETH THOMAS VITAMIN B12 AND [id number] 06:53:00 Test Item Value Reference Range Interpretation Comments VITAMIN B12 (BEAKER) (test code = < pg/mL 213-816 L 774) FOLATE (BEAKER) (test code = 362) 11.60 ng/mL >=7.00 Forms Builder ID - ARCELIABROOKLYN LOperator ID - DESTINY LCT BRAIN WITHOUT IV CONTRAST - [id number] 06:34:00Unlisted Reason for Exam - Click Yes and Enter Reason Below->YesUnlisted Reason for Exam->stroke [facility] : 1945 Sex: FFINAL REPORT CT Head [...] MDReport Verified Date/Time: 08/09/2020 06:34:14 BASIC METABOLIC [id number] 04:52:00 Test Item Value Reference Range Interpretation [...] S NOT APPLICABLE FOR DIALYSIS PATIEN TS. Forms Builder ID - PIAYA LLIPID [id number] 04:52:00 Test Item Value Reference Range Interpretation [...] Borderline 130-159 High 160-189 Very High >=190 Forms Builder ID Inge DIXON [id number] 04:40:00 Test Item Value Reference Range Interpretation Comments THYROID STIMULATING HORMONE 1.676 uIU/mL 0.350-4.940 (BEAKER) (test code = 772) Forms Builder HAYES DIXON LPROTHROMBIN [id number] 00:10:00 Test Item Value Reference Range Interpretation [...] is 2.5-3.5 for patients wiht mechanical heart valves.[id number] 00:10:00 Test Item Value Reference Range Interpretation Comments PARTIAL THROMBOPLASTIN TIME 28.0 seconds 22.5-36.0 (BEAKER) (test code = 760) [id number] 00:10:00 Test Item Value Reference Range Interpretation Comments FIBRINOGEN LEVEL (BEAKER) (test 214 mg/dl 225-434 L code = 658) CBC W/PLT COUNT & AUTO [id number] 00:00:00 Test Item Value Reference Range Interpretation [...] PERCENT (BEAKER) (test code = 2801) POCT-GLUCOSE [id number] 23:36:00 Test Item Value Reference Range Interpretation Comments POC-GLUCOSE METER 119 mg/dL 70-110 H : Notified RN/MD: (KSENIANARA) (test code = TESTED AT [facility] 7941 3538) [facility], [address]: Forms Builder/Techni john ID = [id number] for Jayda Donahue TROPONIN [id number] 21:59:00 Test Item Value Reference Range Interpretation [...] failure, acidosis, acute neurological disease, and persistent tachyarrhythmia.Forms Builder ID - DBCOMPREHENSIVE METABOLIC [id number] 21:53:00 Test Item Value Reference Range Interpretation [...] S NOT APPLICABLE FOR DIALYSIS PATIEN TS. Forms Builder ID - DBGLUCOSE BEDSIDE [id number] 10:53:00 Test Item Value Reference Range Interpretation Comments GLUCOSE BEDSIDE TESTING (test code 165 MG/DL 60-99 H = GLUBED) GLUCOSE BEDSIDE [id number] 06:41:00 Test Item Value Reference Range Interpretation Comments GLUCOSE BEDSIDE TESTING (test code 152 MG/DL 60-99 H = GLUBED) BASIC METABOLIC [id number] 06:08:00 Test Item Value Reference Range Interpretation [...] 8.7 MG/DL 8.4-10.2 N CA) BASIC METABOLIC [id number] 06:07:00 Test Item Value Reference Range Interpretation [...] code = MG/DL 8.7-9.7 CA) BASIC METABOLIC [id number] 06:04:00 Test Item Value Reference Range Interpretation [...] code = CA) MG/DL 8.7-9.7 CBC W/AUTO [id number] 05:53:00 Test Item Value Reference Range Interpretation [...] 0.00 K/mm3 0.0-0.1 N NRBC#) GLUCOSE BEDSIDE [id number] 18:38:00 Test Item Value Reference Range Interpretation Comments GLUCOSE BEDSIDE TESTING (test code 187 MG/DL 60-99 H = GLUBED) BASIC METABOLIC [id number] 07:34:00 Test Item Value Reference Range Interpretation [...] 10.0 MG/DL 8.4-10.2 N CA) Comments to Pattern Assembler: NURSE WILL BRING SPECIMEN TO LABIs this [...] VERY HIGH.........>/ = 190 mg/dL Comments to Pattern Assembler: NURSE WILL BRING SPECIMEN TO LABIs this a LINE draw? N [id number] 07:34:00 Test Item Value Reference Range Interpretation Comments MAGNESIUM (test code = MAG) 1.6 MG/DL 1.6-2.3 N Comments to Pattern Assembler: NURSE WILL BRING SPECIMEN TO LABIs this a LINE draw? N BASIC METABOLIC [id number] 07:23:00 Test Item Value Reference Range Interpretation [...] 10.0 MG/DL 8.4-10.2 N CA) Comments to Pattern Assembler: NURSE WILL BRING SPECIMEN TO LABIs this [...] MG/DL 0-99 code = LDL) Comments to Pattern Assembler: NURSE WILL BRING SPECIMEN TO LABIs this a LINE draw? N [id number] 07:23:00 Test Item Value Reference Range Interpretation Comments MAGNESIUM (test code = MAG) 1.6 MG/DL 1.6-2.3 N Comments to Pattern Assembler: NURSE WILL BRING SPECIMEN TO LABIs this a LINE draw? N BASIC METABOLIC [id number] 07:22:00 Test Item Value Reference Range Interpretation [...] code = MG/DL 8.7-9.7 CA) Comments to Pattern Assembler: NURSE WILL BRING SPECIMEN TO LABIs this a LINE draw? N LIPID PROFILE (CORONARY RISK)2020-05-02 07:22:00 Test Item Value Reference Range Interpretation Comments TRIGLYCERIDES (test code = TRIG) MG/DL CHOLESTEROL (test code = CHOL) 180 MG/DL <200 HDL CHOLESTEROL (test code = HDL) MG/DL 40-59 LIPOPROTEIN LDL (test code = LDL) MG/DL 0-99 Comments to Pattern Assembler: NURSE WILL BRING SPECIMEN TO LABIs this a LINE draw? N [id number] 07:22:00 Test Item Value Reference Range Interpretation Comments MAGNESIUM (test code = MAG) MG/DL 1.6-2.3 Comments to Pattern Assembler: NURSE WILL BRING SPECIMEN TO LABIs this a LINE draw? N BASIC METABOLIC [id number] 07:20:00 Test Item Value Reference Range Interpretation [...] code = CA) MG/DL 8.7-9.7 Comments to Pattern Assembler: NURSE WILL BRING SPECIMEN TO LABIs this a LINE draw? N LIPID PROFILE (CORONARY RISK)2020-05-02 07:20:00 Test Item Value Reference Range Interpretation Comments TRIGLYCERIDES (test code = TRIG) MG/DL CHOLESTEROL (test code = CHOL) MG/DL <200 HDL CHOLESTEROL (test code = HDL) MG/DL 40-59 LIPOPROTEIN LDL (test code = LDL) MG/DL 0-99 Comments to Pattern Assembler: NURSE WILL BRING SPECIMEN TO LABIs this a LINE draw? N [id number] 07:20:00 Test Item Value Reference Range Interpretation Comments MAGNESIUM (test code = MAG) MG/DL 1.6-2.3 Comments to Pattern Assembler: NURSE WILL BRING SPECIMEN TO LABIs this a LINE draw? N BASIC METABOLIC [id number] 07:19:00 Test Item Value Reference Range Interpretation [...] code = CA) MG/DL 8.7-9.7 Comments to Pattern Assembler: NURSE WILL BRING SPECIMEN TO LABIs this a LINE draw? N LIPID PROFILE (CORONARY RISK)2020-05-02 07:19:00 Test Item Value Reference Range Interpretation Comments TRIGLYCERIDES (test code = TRIG) MG/DL CHOLESTEROL (test code = CHOL) MG/DL <200 HDL CHOLESTEROL (test code = HDL) MG/DL 40-59 LIPOPROTEIN LDL (test code = LDL) MG/DL 0-99 Comments to Pattern Assembler: NURSE WILL BRING SPECIMEN TO LABIs this a LINE draw? N [id number] 07:19:00 Test Item Value Reference Range Interpretation Comments MAGNESIUM (test code = MAG) MG/DL 1.6-2.3 Comments to Pattern Assembler: NURSE WILL BRING SPECIMEN TO LABIs this a LINE draw? N PROTHROMBIN [id number] 07:15:00 Test Item Value Reference Range Interpretation Comments PROTHROMBIN TIME 12.0 SECONDS 9.4-12.5 N PATIENT (test code = PTP) INTERNATIONAL NORMAL 1.1 The INR is to be RATIO (test code = used only for INR) monitoring oral anticoagulantth erap y. INDICATION INR VALUE ---- ---- ---- -------1. Prophylaxis, de ep venous thrombos is, including high risk surgery. 2.0 - 3.0 2. Prophylaxis, deep venous thrombosis, hip surgery, treatm ent for deep venous thrombosis or pulmonary prevention of systemic emboli sm in patients wit h valvular heart disease, atrial fibrillation, tissue heart va lve, or acute myocar dial infarction. 2.0 - 3.0 3. Bag Shop Worker al prosthesis hear t valves, recurre nt systemic emboli sm. 3.0 - 4.5 Comments to Pattern Assembler: NURSE WILL BRING SPECIMEN TO LABPTT ACTIVATED 2020-05-02 07:15:00 Test Item Value Reference Range Interpretation Comments PTT ACTIVATED (test code = APTT) 24.2 SECONDS 25.1-36.5 L Comments to Pattern Assembler: NURSE WILL BRING SPECIMEN TO LABCBC W/AUTO [...] 0.00 K/mm3 0.0-0.1 N NRBC#) Comments to Pattern Assembler: NURSE WILL BRING SPECIMEN TO LABIs this a LINE draw? N COVID 19 Asymptomatic IH [id number] 06:02:00 Test Item Value Reference Range Interpretation [...] amount of virus (antigen) in the sample." Notes Date/Time Note Provider Source 2020-05-03 10:[facility] Hospitalist Discharge Summary REPORT#:[id number] REPORT STATUS: Signed DATE:05/03/20 TIME: 1028 PATIENT: GERRY HUIZAR UNIT #: [id number] ROOM/BED: [address] : 46 AGE: 74 SEX: F ATTEND: Rob Jane MD ADM AUTHOR: Rob Jane MD * ALL edits or amendments must be made on the el Prism [employer]/computer document * PCP PCP PCP: PCP: Undefined Provider Discharge to: home General Information Problem List/A P: 1. Coronary artery disease 2. HTN (hypertension) 3. Diabetes mellitus 4. Mood disorder 5. Hyperlipidemia Date of admission: Observation Start Date: 05/02/20 Date of admission: 05/02/20 Discharge date: 05/03/20 Hospital course: Patient is a 74-year-old female with known HTN , HLD, and DM who was in her usual state of health until few weeks ago when s he started having left sided chest pain with activity and exertion. She saw her [employer] Dr. Franks who performed echocardiogram as well as nuclear medi cine stress test. The stress test was noted to be abnormal therefore she was brought for cardiac catheterization yesterday morning. She underwent angioplasty and stenting of LAD and the ramus, and was admitted to the telem etry unit for overnight observation. All her home medications were resum ed except Metformin which was held, and Plavix was added. She remained stable overnight, morning labs were unremarkable, and she was discharged to home thi s morning. Consultants: cardiology Pt. condition on discharge: improved Med Rec Med Rec Discharge meds: Stop taking the following medications: LOVASTATIN (MEVACOR) 40 MG TAB 40 MILLIGRAM ORAL DAILY. Continue taking these medications: LISINOPRIL/HCTZ (ZESTORETIC 10/12.5 MG) 10 MG-12 .5 MG TAB 1 TABLET ORAL DAILY. ESCITALOPRAM (LEXAPRO) 10 MG TAB 10 MILLIGRAM ORAL DAILY. metFORMIN (GLUCOPHAGE) 500 MG TAB 500 MILLIGRAM ORAL TWICE DAILY. Instructions: TAKE WITH MEALS ISOSORBIDE MONONITRATE SR (IMDUR) 30 MG TAB.SR.2 4H 30 MILLIGRAM ORAL DAILY. Start taking the following new medications: CLOPIDOGREL (PLAVIX) 75 MG TAB 75 MILLIGRAM ORAL DAILY. Qty = 90 Refills = 3 ATORVASTATIN (LIPITOR) 40 MG TAB 40 MILLIGRAM ORAL BEDTIME. Qty = 90 Refills = 3 ASPIRIN EC (ECOTRIN) 81 MG TAB.EC 81 MILLIGRAM ORAL DAILY. Qty = 120 No Refills Discharge Instructions PCP PCP: PCP: Undefined Provider )( Discharge to: Home/Self Care Discharge Instructions Additional Discharge Routines: Cataract Lens Generator Follow -Up )( Diet: Diabetic, Cardiac Prescriptions: with patient Discharge management: less than 30 mins, face to face encounter Follow-up Appointments Consulting provider 1: Provider 1: Itz Franks MD Specialty: CARDIOVASC DIS Objective General VS/I O: Vital Signs: Date Time Temp Pulse Resp B/P B/P Pulse O2 O2 F low FiO2 Mean Ox Delivery Rate 05/03 0848 97.7 60 14 126/72 90.0 97 Room air 05/03 0628 98.2 54 18 156/66 96.0 95 05/03 0115 98.4 57 18 115/55 75.1 95 05/02 2013 98.8 57 14 149/69 95.6 96 05/02 1719 98.2 57 14 151/60 90.5 98 Room air 05/02 1428 97.7 53 16 143/62 88.9 98 Room air 24 hour I O ending at 0700: 05/03 0700 05/02 1900 Intake Total 440 Output Total Balance 440 Intake, Oral 440 Number Voids 1 Physical Exam Head/Eyes: atraumatic, clear cornea, normal conj unctiva/sclera, PERRL ENT: moist mucosal membranes, normal ear left, n ormal ear right Neck: non-tender, supple/no meningismus Cardiovascular: normal heart sounds, regular rat e rhythm Respiratory: aerating well, clear to auscultatio n, symmetric expansion, no distress Abdomen: non-tender, normal bowel sounds, soft, no distention Rectal: not indicated Extremities: moves all, normal range of motion, no clubbing, no cyanosis Musculoskeletal: normal inspection, painless ran ge of motion, no muscle spasm Neuro/FABRIC LAY OUT WORKER: alert, oriented X 3, normal speech, n o motor deficits Psychiatry: normal affect, normal judgment/insig ht, normal mood Quality Current Medications Current medication review: I attest that the foregoing medication list in t he medical record is true, accurate, and complete to the best of my knowled ge. Advanced Care Plan 65 or Older Discussed with: patient Electronically Signed by Rob Jane MD on 05/03 at 1515 RPT #:[id number] END OF REPORT 2020-05-03 09:09:00-00:00 [facility] ([facility]) Cardiology Progress Note REPORT#:[id number] REPORT STATUS: Signed DATE:05/03/20 TIME: 908 PATIENT: GERRY HUIZAR UNIT #: [id number] [facility] AGE[facility] 74 SEX: F ATTEND: Rob Jane MD ADM AUTHOR: Giuseppe Masters MD * ALL edits or amendments must be made on the el [employer]/computer document * Subjective Chief Complaint: CAD Patient reports: No: chest pain, palpitations, shortness of breat h. Objective General VS/I O: 24 hour I O ending at 0700: 05/03 0700 05/02 1900 Intake Total 440 Output Total Balance 440 Intake, Oral 440 Number Voids 1 Vital Signs: Date Time Temp Pulse Resp B/P B/P Pulse O2 O2 F low FiO2 Mean Ox Delivery Rate 05/03 0848 97.7 60 14 126/72 90.0 97 Room air 05/03 0628 98.2 54 18 156/66 96.0 95 05/03 0115 98.4 57 18 115/55 75.1 95 05/02 2013 98.8 57 14 149/69 95.6 96 05/02 1719 98.2 57 14 151/60 90.5 98 Room air 05/02 1428 97.7 53 16 143/62 88.9 98 Room air Patient Weight Weight (lb): Weight (oz): Weight (kg): Medications: Active Meds + DC'd Last 24 Hrs Aspirin 81 MG DAILY PO Citalopram Hydrobromide 20 MG DAILY PO Clopidogrel Bisulfate 75 MG DAILY PO Hydrochlorothiazide 12.5 MG DAILY PO Isosorbide Mononitrate 30 MG DAILY PO Lisinopril 10 MG DAILY PO Lisinopril/HCTZ 1 EACH DAILY PO (CAN) Atorvastatin Calcium 80 MG BEDTIME PO Insulin Human Lispro LOW DOSE SLIDING SCALE AC HS SUBQ Dextrose/Water 12.5 GM ASDIR PRN IV Dextrose/Water 25 GM ASDIR PRN IV Melatonin 6 MG BEDTIME PRN PO Morphine Sulfate 4 MG Q4H PRN PRN IV Acetaminophen 650 MG ASDIR PRN PO Hydrocodone Bitart/Acetaminophen 1 TAB Q4H PRN P RN PO Ondansetron HCl 4 MG Q8H PRN PRN IV Sodium Chloride 1,000 ML .Q10H IV Heparin Sodium 0 .STK-MED ONE .ROUTE (DC) Sodium Chloride 1,000 ML ONCE ONE IV (DC) Physical Exam General appearance: alert, awake, oriented Head/Eyes: atraumatic, normocephalic ENT: moist mucosal membranes Neck: no JVD Cardiovascular: CV assessment: regular rate and rhythm Respiratory: clear to auscultation, no distress Neuro/FABRIC LAY OUT WORKER: alert, oriented X 3, CN II-XII intact Skin: dry, intact Psychiatry: normal affect, normal judgment/insig ht, normal mood Results Findings/Data: Laboratory Tests 05/03 1720 Chemistry Sodium (137 - 145 MMOL/L) 137 Potassium (3.5 - 5.1 MMOL/L) 3.9 Chloride (98 - 107 MMOL/L) 107 Carbon Dioxide (22 - 30 MMOL/L) 24 BUN (7 - 17 MG/DL) 14 Creatinine (0.52 - 1.04 MG/DL) 0.80 Glomerular Filtr Rate > 60 Glucose (74 - 106 MG/DL) 156 H POC Glucose (60 - 99 MG/DL) 152 H 187 H Calcium (8.4 - 10.2 MG/DL) 8.7 Laboratory Tests 05/03 0503 Hematology WBC (3.8 - 9.8 K/MM3) 7.0 RBC (3.58 - 4.97 M/MM3) 3.67 Hgb (11.2 - 14.9 G/DL) 10.8 L Hct (33.2 - 43.5 %) 35.2 MCV (80.7 - 99.1 fL) 96 MCH (27.0 - 34.1 pg) 29.4 MCHC (32.2 - 35.7 %) 30.7 L RDW (12.1 - 15.2 %) 13.3 Plt Count (129 - 368 K/MM3) 181 MPV (7.4 - 10.4 fl) 11.7 H Neut % (Auto) (43 - 75 %) 66.6 Lymph % (Auto) (14 - 44 %) 20.5 Hawkins % (Auto) (4 - 13 %) 10.5 Eos % (Auto) (0 - 6 %) 1.7 Baso % (Auto) (0 - 2 %) 0.6 Neut # (Auto) (2.0 - 7.6 K/mm3) 4.67 Lymph # (Auto) (1.0 - 3.8 K/mm3) 1.44 Hawkins # (Auto) (0.1 - 0.8 K/mm3) 0.74 Eos # (Auto) (0.0 - 0.2 K/mm3) 0.12 Baso # (Auto) (0.0 - 0.2 K/mm3) 0.04 Immature Gran % (0.0 - 2.0 %) 0.1 Nucleated RBC % (0 - 1.0 %) 0.0 Nucleated RBCs # (Man) (0.0 - 0.1 K/mm3) 0.00 Diagnosis, Assessment Plan Hospital course to date: IMP: CAD s/p INFECTION CONTROL NURSE stent LAD, ramus PLAN: d/c home f/u with Dr. Franks at 0627 RPT #:[id number] END OF REPORT 2020-05-03 08:55:00-00:00 [id number] [place] [id number] PATIENT NAME: GERRY HUIZAR ADMIT DATE: ACCOUNT NO: [id number] ROOM NO: [facility] AGE: 74 REPORT TYPE: ELECTROCARDIOGRAM SEX: F ADMITTING PHYSICIAN:Yamilet Chavez MD ATTENDING PHYSICIAN:Rob Jane MD Order: [id number] Test Reason : CAD/PCI Test Date/Time Stamp: MonMay 03 2020 08:55:36 Blood Pressure : / mmHG Vent. Rate : 062 BPM Atrial Rate : 062 BPM P-R Int : 166 ms QRS Dur : 104 ms QT Int : 426 ms P-R-T Axes : 040 009 031 degree s QTc Int : 432 ms Normal sinus rhythm T wave abnormality, consider anterolateral ische ramos Abnormal ECG When compared with ECG of 02-MAY-2020 10:07, T wave inversion now evident in Anterolateral le ads Confirmed by ITZ FRANKS ([id number]) on 05/03/2020 10:21:10 AM Referred By: Rob Jane Confirmed by:ITZ HAYDEN at 1021 PATIENT NAME: GERRY HUIZAR 0713 2020-05-02 15:29:00-00:00 [facility] ([facility]) Hospitalist History Physical REPORT#:[id number] REPORT STATUS: Signed DATE:05/02/20 TIME: 1529 PATIENT: GERRY HUIZAR UNIT #: [id number] ROOM/BED: [address] : 46 AGE: 74 SEX: F ATTEND: Rob Jane MD ADM AUTHOR: Rob Jane MD * ALL edits or amendments must be made on the [email or web address]/computer document * History of Present Illness HPI Chief complaint: Chest pain HPI: Patient is a 74-year-old female with known HTN , HLD, and DM who was in her usual state of health until few weeks ago when s he started having chest pain. She indicates that the pain felt like a pressure -like sensation in the left upper side of the chest and would radiate to the left upper extremity. Pain was associated with dyspnea, and she would occasiona lly have numbness of the left upper extremity. She saw the casting house laborer Dr. Kraus who performed echocardiogram as well as nuclear medicine stres s test. The stress test was noted to be abnormal therefo re she was brought for cardiac catheterization this morning. She underwent angioplasty and stenting of LAD and the ramus, and is now admitted to the telemetry unit for overnight observation. Informant/historian: patient, family/other at [facility], referring physician History Past medical history: Reports: Diabetes mellitus, Hypertension. Additional medical history: Hyperlipidemia. Mood disorder. Past surgical history: Reports: Hysterectomy. Additional family history: Father of Leukemia; mother of old age. 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 ; her Ambika Huizar is her NOK. Medication/Allergy-Vaccine Hx Medications: Home Medications: Medication Dose/Rte/Freq Days Qty Entered Last Max Daily Dose Reviewed LOVASTATIN (MEVACOR) 40 MG PO DAILY 05/01/20 Strength: 40 MG TAB 1702 LISINOPRIL/HCTZ 1 TAB PO DAILY 05/01/20 (ZESTORETIC 10/12.5 MG) 1703 Strength: 10 MG-12.5 MG TAB ESCITALOPRAM (LEXAPRO) 10 MG PO DAILY 05/01/20 Strength: 10 MG TAB 1704 metFORMIN (GLUCOPHAGE) 500 MG PO BID 05/01/20 Strength: 500 MG TAB 1705 ISOSORBIDE 30 MG PO DAILY 05/01/20 MONONITRATE SR 1706 (IMDUR) Strength: 30 MG TAB.SR.24H Current Hospital Medications: Antihistamine Drugs Sig/Shu Start time Last Medication Dose Route Stop Time Status Admin Diphenhydramine HCl 0 .STK-MED ONE 05/02 0742 D C (BENADRYL) .ROUTE Diphenhydramine HCl 25 MG ONCE ONE 05/02 0500 D C 05/02 (BENADRYL) PO 05/02 0501 0744 Autonomic Drugs Sig/Shu Start time Last Medication Dose Route Stop Time Status Admin Atropine Sulfate 0 .STK-MED ONE 05/02 0822 DC (ATROPINE SULFATE) .ROUTE Blood Formation,Coagulation Sig/Shu Start time Last Medication Dose Route Stop Time Status Admin Clopidogrel Bisulfate 75 MG DAILY 05/03 900 AC (PLAVIX) PO 06/02 901 Heparin Sodium 0 .STK-MED ONE 05/02 921 DC (HEPARIN SODIUM) .ROUTE Clopidogrel Bisulfate 0 .STK-MED ONE 05/02 0833 DC (PLAVIX) .ROUTE Clopidogrel Bisulfate 0 .STK-MED ONE 05/02 831 DC (PLAVIX) .ROUTE Heparin Sodium 0 .STK-MED ONE 05/02 806 DC (HEPARIN SODIUM) .ROUTE Heparin Sodium/ 1,000 ML .STK-MED ONE 05/02 080 6 DC Sodium Chloride IV (HEPARIN 1000 UNITS/ NS 500ML) Cardiovascular Drugs Sig/Shu Start time Last Medication Dose Route Stop Time Status Admin Isosorbide 30 MG DAILY 05/03 900 AC Mononitrate PO 06/02 901 (IMDUR) Lisinopril 10 MG DAILY 05/03 900 AC (PRINIVIL) PO 06/02 901 Lisinopril/HCTZ 1 EACH DAILY 05/03 900 CAN (Zestoretic 10-12.5 PO 06/02 901 MG Tablet) Atorvastatin Calcium 80 MG BEDTIME 05/02 2100 A C (LIPITOR) PO 06/01 2101 Nitroglycerin 0 .STK-MED ONE 05/02 851 DC (NITRO-BID UD) .ROUTE Central Nervous System Agents Sig/Shu Start time Last Medication Dose Route Stop Time Status Admin Aspirin 81 MG DAILY 05/03 900 AC (ASPIRIN EC) PO 06/02 901 Citalopram 20 MG DAILY 05/03 900 AC Hydrobromide PO 06/02 901 (CeleXA) Acetaminophen 650 MG ASDIR PRN 05/02 0935 AC (TYLENOL) PO 06/01 936 Hydrocodone Bitart/ 1 TAB Q4H PRN PRN 05/02 093 5 AC Acetaminophen PO 06/01 936 (NORCO 5/325 TABLET (C-II)) Fentanyl Citrate 0 .STK-MED ONE 05/02 807 DC (SUBLIMAZE (C-II)) .ROUTE Midazolam HCl 0 .STK-MED ONE 05/02 807 DC (VERSED (C-IV)) .ROUTE Lidocaine 0 .STK-MED ONE 05/02 806 DC (XYLOCAINE 1%) .ROUTE Aspirin 0 .STK-MED ONE 05/02 742 DC (ASPIRIN) .ROUTE Diazepam 0 .STK-MED ONE 05/02 742 DC (VALIUM (C-IV)) .ROUTE Aspirin 325 MG ONCE ONE 05/02 500 DC 05/02 (ASPIRIN) PO 05/02 050 0744 Diazepam 5 MG ONCE ONE 05/02 500 DC 05/02 (VALIUM (C-IV)) PO 05/02 0501 0744 Diagnostic Agents Sig/Suh Start time Last Medication Dose Route Stop Time Status Admin Iopamidol 0 .STK-MED ONE 05/02 906 DC (ISOVUE-370) .ROUTE Iopamidol 0 .STK-MED ONE 05/02 838 DC (ISOVUE-370) .ROUTE Iopamidol 0 .STK-MED ONE 05/02 807 DC (ISOVUE-300) .ROUTE Iopamidol 0 .STK-MED ONE 05/02 807 DC (ISOVUE-370) .ROUTE Electrolytic, Caloric, And Nelson Sig/Shu Start time Last Medication Dose Route Stop Time Status Admin Hydrochlorothiazide 12.5 MG DAILY 05/03 0900 AC (HYDRODIURIL) PO 06/02 901 Sodium Chloride 1,000 ML .Q10H 05/02 0935 AC (SODIUM CHLORIDE IV 06/01 936 0.9%) Sodium Chloride 1,000 ML Q10H 05/02 0400 CAN (SODIUM CHLORIDE IV 05/31 1216 0.9%) Sodium Chloride 1,000 ML ONCE ONE 05/02 0400 DC 05/02 (SODIUM CHLORIDE IV 05/02 1359 0745 0.9%) Gastrointestinal Drugs Sig/Shu Start time Last Medication Dose Route Stop Time Status Admin Ondansetron HCl 4 MG Q8H PRN PRN 05/02 935 AC (ZOFRAN) IV 06/01 936 Allergies: Coded Allergies: No Known Allergies (05/02/20) Ambulatory status: Independent Review of Systems Respiratory: Denies: non productive cough, pleuritic pain, pr oductive cough (sputum), SOB, wheezing. Cardiovascular: Reports: chest pain, JONES (dyspnea on exertion), palpitations. Denies: edema, orthopnea, parox nocturnal dyspnea. All systems rev neg: except as marked Objective General VS/I O: Vital Signs: Date Time Temp Pulse Resp B/P B/P Pulse O2 O2 F low FiO2 Mean Ox Delivery Rate 05/02 1428 97.7 53 16 143/62 88.9 98 Room air Patient Weight Weight (lb): Weight (oz): Weight (kg): Medications: Active Meds + DC'd Last 24 Hrs Aspirin 81 MG DAILY PO Citalopram Hydrobromide 20 MG DAILY PO Clopidogrel Bisulfate 75 MG DAILY PO Hydrochlorothiazide 12.5 MG DAILY PO Isosorbide Mononitrate 30 MG DAILY PO Lisinopril 10 MG DAILY PO Lisinopril/HCTZ 1 EACH DAILY PO (CAN) Atorvastatin Calcium 80 MG BEDTIME PO Acetaminophen 650 MG ASDIR PRN PO Hydrocodone Bitart/Acetaminophen 1 TAB Q4H PRN P RN PO Ondansetron HCl 4 MG Q8H PRN PRN IV Sodium Chloride 1,000 ML .Q10H IV Heparin Sodium 0 .STK-MED ONE .ROUTE (DC) Iopamidol 0 .STK-MED ONE .ROUTE (DC) Nitroglycerin 0 .STK-MED ONE .ROUTE (DC) Iopamidol 0 .STK-MED ONE .ROUTE (DC) Clopidogrel Bisulfate 0 .STK-MED ONE .ROUTE (DC) Clopidogrel Bisulfate 0 .STK-MED ONE .ROUTE (DC) Atropine Sulfate 0 .STK-MED ONE .ROUTE (DC) Fentanyl Citrate 0 .STK-MED ONE .ROUTE (DC) Iopamidol 0 .STK-MED ONE .ROUTE (DC) Iopamidol 0 .STK-MED ONE .ROUTE (DC) Midazolam HCl 0 .STK-MED ONE .ROUTE (DC) Heparin Sodium 0 .STK-MED ONE .ROUTE (DC) Heparin Sodium/Sodium Chloride 1,000 ML .STK-MED ONE IV (DC) Lidocaine 0 .STK-MED ONE .ROUTE (DC) Aspirin 0 .STK-MED ONE .ROUTE (DC) Diazepam 0 .STK-MED ONE .ROUTE (DC) Diphenhydramine HCl 0 .STK-MED ONE .ROUTE (DC) Aspirin 325 MG ONCE ONE PO (DC) Diazepam 5 MG ONCE ONE PO (DC) Diphenhydramine HCl 25 MG ONCE ONE PO (DC) Sodium Chloride 1,000 ML Q10H IV (CAN) Sodium Chloride 1,000 ML ONCE ONE IV (DC) Physical Exam General appearance: awake, o riented, no acute distress, pleasant, conversational Head/Eyes: atraumatic, clear cornea, normal conj unctiva/sclera, PERRL ENT: moist mucosal membranes, normal ear left, n ormal ear right Neck: non-tender, supple/no meningismus Cardiovascular: normal heart sounds, regular rat e rhythm Respiratory: aerating well, clear to auscultatio n, symmetric expansion, no distress Abdomen: non-tender, normal bowel sounds, soft, no distention Rectal: not indicated Extremities: moves all, normal range of motion, no clubbing, no cyanosis Musculoskeletal: normal inspection, painless ran ge of motion, no muscle spasm Neuro/FABRIC LAY OUT WORKER: alert, oriented X 3, normal speech, n o motor deficits Psychiatry: normal affect, normal judgment/insig ht, normal mood Results Findings/Data: Laboratory Tests 05/02 645 Chemistry Sodium (137 - 145 MMOL/L) 138 Potassium (3.5 - 5.1 MMOL/L) 4.6 Chloride (98 - 107 MMOL/L) 105 Carbon Dioxide (22 - 30 MMOL/L) 28 BUN (7 - 17 MG/DL) 21 H Creatinine (0.52 - 1.04 MG/DL) 0.80 Glomerular Filtr Rate > 60 Glucose (74 - 106 MG/DL) 183 H Calcium (8.4 - 10.2 MG/DL) 10.0 Magnesium (1.6 - 2.3 MG/DL) 1.6 Triglycerides (MG/DL) 245 Cholesterol (<200 MG/DL) 180 LDL Cholesterol Measurd (0 - 99 MG/DL) 109 H HDL Cholesterol (40 - 59 MG/DL) 42 Laboratory Tests 05/02 645 Coagulation INR 1.1 APTT (25.1 - 36.5 SECONDS) 24.2 L PT Patient/Control Mix (9.4 - 12.5 SECONDS) 12. 0 Laboratory Tests 05/02 645 Hematology WBC (3.8 - 9.8 K/MM3) 6.8 RBC (3.58 - 4.97 M/MM3) 4.01 Hgb (11.2 - 14.9 G/DL) 11.9 Hct (33.2 - 43.5 %) 37.6 MCV (80.7 - 99.1 fL) 94 MCH (27.0 - 34.1 pg) 29.7 MCHC (32.2 - 35.7 %) 31.6 L RDW (12.1 - 15.2 %) 13.3 Plt Count (129 - 368 K/MM3) 178 MPV (7.4 - 10.4 fl) 12.1 H Neut % (Auto) (43 - 75 %) 62.8 Lymph % (Auto) (14 - 44 %) 24.7 Hawkins % (Auto) (4 - 13 %) 9.3 Eos % (Auto) (0 - 6 %) 1.9 Baso % (Auto) (0 - 2 %) 1.0 Neut # (Auto) (2.0 - 7.6 K/mm3) 4.26 Lymph # (Auto) (1.0 - 3.8 K/mm3) 1.68 Hawkins # (Auto) (0.1 - 0.8 K/mm3) 0.63 Eos # (Auto) (0.0 - 0.2 K/mm3) 0.13 Baso # (Auto) (0.0 - 0.2 K/mm3) 0.07 Immature Gran % (0.0 - 2.0 %) 0.3 Nucleated RBC % (0 - 1.0 %) 0.0 Nucleated RBCs # (Man) (0.0 - 0.1 K/mm3) 0.00 Laboratory Tests 05/02 515 Serology SARS-CoV-2 Ag (Rapid) (Negative) NEGATIVE Results: labs reviewed, rhythm personally rev'd, current med profile rev'd Diagnosis, Assessment Plan Problem List/A P: 1. Coronary artery disease 2. HTN (hypertension) 3. Diabetes mellitus 4. Mood disorder 5. Hyperlipidemia Free Text DxA P Notes Free text DxA P notes: PLAN: - Patient is s/p angioplasty and stenting of meliza us and LAD. - Admit to telemetry for overnight observation. - IV fluids. - Resume home meds; hold Metformin X 48 hours. - ASA and Plavix have been added by Cardiology. - Sliding scale Insulin. - NGN s/l prn. - Repeat labs in am. - Plan to d/c home in am, if remains stable. Quality Current Medications Current medication review: I attest that the foregoing medication list in t he medical record is true, accurate, and complete to the best of my knowled ge. Advanced Care Plan 65 or Older Discussed with: patient Discussion included: code status (full code) Electronically Signed by Rob Jane MD on 05/02 at 1626 [facility] #:[id number] END OF REPORT 2020-05-02 10:39:00-00:00 [id number] [place] [address] PATIENT NAME: GERRY HUIZAR ADMIT DATE: 0 ACCOUNT NO: [id number] ROOM NO: Z.415 AGE: 74 REPORT TYPE: CARDIAC CATHETERIZATION REPORT SEX: F ADMITTING PHYSICIAN:Yamilet Chavez MD ATTENDING PHYSICIAN:Rob Jane MD PROCEDURE DATE: 05/02/2020 Dr. Franks doing an addendum to the dictation I just did on Gerry Huizar, addendum on the catheterization lab procedure. I intended to use drug-eluti ng stents on this patient and I asked for a specific drug-eluting stent. I found out after I finished the procedure that I was given a bare-metal stent by mistake. The patie nt is doing well and has had no issues at this time. She will be watched closely as out patient for restenosis. A meeting was done with the staff afterwar ds so further mistakes will not recur. This was all discussed with the staff in the pro cedure and the media production support manager of the catheterization lab. Dictated By: Itz Franks MD WT: CATH:Z.SONALI/KAZ/LIMA Conf#: [id number]/DID#: [id number] Authenticated by Itz Franks MD On 04/23 05:26:23 PM at 1726 PATIENT NAME: GERRY HUIZAR 0713 2020-05-02 10:07:00-00:00 [id number] [place] [address] PATIENT NAME: GERRY HUIZAR ADMIT DATE: 0 ACCOUNT NO: [id number] ROOM NO: AGE: 74 REPORT TYPE: ELECTROCARDIOGRAM SEX: F ADMITTING PHYSICIAN: ATTENDING PHYSICIAN:Itz Franks MD Order: [id number] Test Reason : CAD/PCI Test Date/Time Stamp: MonMay 02 2020 10:07:19 Blood Pressure : / mmHG Vent. Rate : 049 BPM Atrial Rate : 049 BPM P-R Int : 204 ms QRS Dur : 104 ms QT Int : 450 ms P-R-T Axes : 036 042 049 degree s QTc Int : 406 ms Marked sinus bradycardia Abnormal ECG When compared with ECG of 02-MAY-2020 07:23, No significant change was found Confirmed by ITZ FRANKS ([id number]) on 05/02/2020 12:09:56 PM Referred By: Itz Franks Confirmed by:ITZ KRAUS at 1210 PATIENT NAME: GERRY HUIZAR 0713 2020-05-02 09:50:00-00:00 [id number] [place] [id number] PATIENT NAME: GERRY HUIZAR ADMIT DATE: 0 ACCOUNT NO: [id number] ROOM NO: AGE: 74 REPORT TYPE: CARDIAC CATHETERIZATION REPORT SEX: F ADMITTING PHYSICIAN: ATTENDING PHYSICIAN:Itz Franks MD PROCEDURE DATE: 05/02/2020 CYLINDER BATCHER: Itz Franks M.D. INDICATION FOR THE PROCEDURE: Unstable angina, c oronary artery disease. TITLE OF THE PROCEDURE: 1. Left heart catheterization. 2. Thoracic aortogram. 3. Bare-metal stent of the ramus. 4. Bare-metal stent of the proximal ostial LAD. 5. Closing device. ESTIMATED BLOOD LOSS: Minimal. COMPLICATIONS: None. CONTRAST: 190 mL. ANESTHESIA: Conscious sedation with Versed and f entanyl and 1% lidocaine for local anesthesia. FINAL DIAGNOSES: Two-vessel coronary art marlene disease, tortuous aorta especially at the diaphragm level with dilated ascending ao rta at 3.7 cm, status post bare-metal stenting of the r amus and the proximal left anterior descending. The recommendation is intensive medical therapy. PROCEDURE IN DETAIL: After informed consent, the patient was brought to the cardiac catheterization lab in a stable fasting nonsedated state. She was prepped and draped in usual sterile fashion. Aft er conscious sedation, 1% lidocaine was administered to the right common f emoral artery area for local anesthesia. A 6-Ukrainian sheath was placed in the right common femoral artery using standard techniques and fluoroscopy. After heparinization, it was difficult to cross the descending aorta due to e xtreme tortuosity at the diaphragm level. Then left coronary tarsha ogram showed a tight ostial LAD lesion at 95%. The rest of the LAD appeared to be free of angiographic disease. The circumflex appeared to be fr ee of angiographic disease. There was a large ramus intermedius with 99% subtota l focal lesion. Right coronary angiogram showed 45% proximal, 40% mid, and 30% distal plaquing. The right coronary artery was dominant. Left ventricular angiogram showed an e jection fraction of 60%. No wall motion abnormalities or aortic valve gradie nt. The left ventricular end-diastolic pressure was 22. Thoracic aortogra m showed very tortuous aorta, PATIENT NAME: GERRY HUIZAR 0713 especially at the level of t he diaphragm and the ascending aorta was dilated at 3.7 cm. At this time, I proceeded with the inter vention on the LAD and the ramus lesions. The guide used was an XB LAD 3.5. The first wire used was a Luge, was placed in the ramus and could not cros s with the stent, so I had to predilate with a [employer] Emerge 2.5 x 12 and then placed a 3.5 x 15 Integrity stent and then I was not able to cross the Luge down the LAD, so I used a BMW and stented that with a 3 x 1 2 Integrity BMS 3 x 12. Those resulted in less than 0% residual at both lesions. The ri ght groin was sealed using Angio-Seal. There were no complications. The pat ient tolerated the procedure well. She was transferred ba to the holding area for observation and then she will be observed overnight. Dictated By: Itz Franks MD WT: CATH:TODD/KAZ/LIMA Conf#: [id number]/DID#: [id number] Authenticated by Itz Franks MD On 04/23 12:12:24 PM at 1212 PATIENT NAME: GERRY HUIZAR 0713 2020-05-02 07:23:00-00:00 [id number] [place] [address] PATIENT NAME: GERRY HUIZAR ADMIT DATE: ACCOUNT NO: [id number] ROOM NO: AGE: 74 REPORT TYPE: ELECTROCARDIOGRAM SEX: F ADMITTING PHYSICIAN: ATTENDING PHYSICIAN:Itz Franks MD Order: [id number] Test Reason : PRE-OP Test Date/Time Stamp: MonMay 02 2020 07:23:57 Blood Pressure : / mmHG Vent. Rate : 049 BPM Atrial Rate : 049 BPM P-R Int : 166 ms QRS Dur : 090 ms QT Int : 428 ms P-R-T Axes : 047 033 034 degree s QTc Int : 386 ms Marked sinus bradycardia Abnormal ECG No previous ECGs available Confirmed by ITZ FRANKS ([id number]) on 05/02/2020 10:44:00 AM Referred By: Itz Franks Confirmed by:ITZ KRAUS at 1044 PATIENT NAME: GERRY HUIZAR [id number] 2020-05-01 07:26:00-00:00 [id number] [facility] [address] [place] [address] PATIENT NAME: GERRY HUIZAR ADMIT DATE: ACCOUNT NO: [id number] ROOM NO: AGE: 74 REPORT TYPE: HISTORY AND PHYSICAL SEX: F ADMITTING PHYSICIAN: ATTENDING PHYSICIAN:Itz Franks MD PATIENT NAME: GERRY HUIZAR ADMIT DATE:05/02/20 ADMISSION DATE: 05/02/2020 CYLINDER BATCHER: Itz Franks M.D. REASON FOR ADMISSION: Angina, coronary a rtery disease, multiple cardiovascular risk factors for cardiac catheterization and pos sible revascularization. HISTORY OF PRESENT ILLNESS: Gerry is a 74-year-ol d lady with no previously documented coronary artery disease who presented for evaluation of angina as well as dyspnea. Noninvasive workup with a stress nuclear showed LAD ischemia, which has changed compared to previous evaluatio n in 2017. She had also PVCs with mild ectopy on monitoring. On echocardiogra m, she had mild mitral and aortic valve insufficiency with preserved ejecti on fraction. Given the patient's symptoms, risk factors, and fi ndings on the nuclear stress test, she is here for cardiac catheterization to assess fo r possible revascularization. Her symptoms were basically a pressure ache on t he left side of the chest radiating to the left arm with dyspnea and numbn ess. She had also occasional dizziness as well as palpitations and dyspnea on mild exertion. PAST MEDICAL HISTORY: Remarkable for hypertensio n, hyperlipidemia, diabetes, and an anxiety disorder as well as depression. PAST SURGICAL HISTORY: She has had hysterectomy several years ago. ALLERGIES: NO KNOWN DRUG ALLERGIES. MEDICATIONS: Lovastatin 40 mg daily, vitamins, l isinopril/hydrochlorothiazide 10/12.5 mg daily, escitalopram 10 mg daily, zinc , metformin 500 mg daily on hold, and aspirin 81 mg daily. SOCIAL HISTORY: The patient is an active smoker. There is no history of alcohol or street drug use. 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 FAMILY HISTORY: Positive for atherosclerotic car diovascular disease. Details are enclosed. REVIEW OF SYSTEMS: Remarkable for fatigue, decre ased hearing, dizziness, occasional wheezing, decreas ed appetite, difficulty balancing at times, anxiety and depression symptoms. No acute GI or sympt oms. No TIAs or strokes. PHYSICAL EXAMINATION: PATIENT NAME: GERRY HUIZAR [id number] GENERAL: Reveals a pleasant elderly lady in no a cute distress. VITAL SIGNS: Blood pressure 139/65, pulse 57 and regular, respiratory rate 18 and unlabored, and temperature afebrile. HEENT: Head, atraumatic and normocephalic. Eyes and ENT examination within normal for age. NECK: Supple. No jugular venous distention, brui ts, or lymphadenopathy. Normal upstroke. LUNGS: Clear and resonant. HEART: Regular rate and rhyt hm with II/ systolic and diastolic murmurs at the mitral and aortic area respectively. No gallops. ABDOMEN: Soft. No tenderness, no organomegaly, n o masses or bruits. EXTREMITIES: 2+ distal pulses. No edema, cyanosi s, or clubbing. NEUROLOGIC: Alert and oriented x3. The examinat ion appears to be nonfocal. LABORATORY DATA: Pending. Noninvasive cardiac wo rkup enclosed. IMPRESSION AND PLAN: This is a 74-year-old lady with multiple cardiovascular risk factors who comes in [facility] angina and abnormal stress nuclear. She has high likelihood of significant coronary artery diseas e. She is here for cardiac catheterization to assess fo r possible revascularization. The recommendation is to proceed with the above-mentioned procedures. The risks and the benefits of the planned procedures were discussed in detail with the patient and she is willing to proceed. Rest as per orders. Dictated By: Itz Franks MD WT: HP:GUERITA/KAZ/LIMA Conf#: [id number]/DID#: [id number] Authenticated and Edited by Itz Franks MD On 05/01/20 4:45:24 PM at 1647 PATIENT NAME: GERRY HUIZAR [id number]
[2023-03-03 12:21] LABS: Absolute Lymphocytes (CBC) 1.2 K/uL (0.7-4.9); Hematocrit 34.3 % (36.0-45.0); Lymphocytes % 19.1 % (15.3-44.8); MCV 88.3 fL (80-100); MPV 8.6 fL (7.6-11.3); Platelets 257 thou/uL (152-406); RBC Red Blood Cell Count 3.88 M/uL (3.86-4.86)
[2023-03-03] MEDS ORDERED: ONDANSETRON 4 MG/2 ML VIAL ONE (12:28)
[2023-03-03] MEDS ORDERED: FAMOTIDINE 20 MG/2 ML VIAL IV ONE (12:28)
[2023-03-03] MEDS ORDERED: NA CHLORIDE 0.9% 1,000 ML ONE (12:28)
[2023-03-03 12:41] LABS: Albumin 3.7 g/dL (3.4-5.0); Bilirubin Total 0.6 mg/dL (0.2-1.0); Protein, Total 6.7 g/dL (6.4-8.2)
--- NOTE | 2023-03-03 12:54 | RAD REPORT ---
EXAM DESCRIPTION: CT - Abdomen Pelvis Wo Contrast - 03/03/2023 12:40 pm CLINICAL HISTORY: Abdominal pain. cramping, recent bacterial infection sp abx, nausea/vomitin COMPARISON: <Comparisons> TECHNIQUE: CT imaging of the abdomen and pelvis was performed without contrast. Solid organ, bowel a nd vascular assessment is limited due to lack of IV and oral contrast. All CT scans are performed using dose optimization technique as appropriate and may include automated exposure control or mA/KV adjustment according to patient size. FINDINGS: The lower lung keller are clear. The liver, spleen, pancreas, left adrenal gland and kidneys are within normal limits for a limited no n-contrast examination.3.5 cm rounded mass right adrenal gland compatible with an adenoma. No bowel obstruction, free air, free fluid or abscess. Prominent sigmoid diverticulosis coli is prese nt. There is slight reticulation of the adjacent fat in the left lower quadrant of the pelvis suggest ing mild diverticulitis could be present. The appendix is normal. Diffuse osteopenia without fracture. Multilevel moderate degenerative change.Prominent aortoiliac ath erosclerosis. IMPRESSION: Significant sigmoid diverticulosis coli is present with suggestion of early diverticulit is. There is no abscess or other abnormal collections. 3.5 cm right adrenal adenoma. Osteopenia with moderate multilevel degenerative spondylosis of the lumbar spine. A limited non-contrast examination was performed as detailed.
--- NOTE | 2023-03-03 14:25 | ER ---
Nurse's Notes [facility] Name: Marizol Huizar Age: 77 yrs Sex: Female : 1945 Arrival Date: 03/03/2023 Time: 11:39 Bed 18 Private MD: Oskar Hargrove E Diagnosis: Acute kidney failure, unspecified;Dehydration;Diverticulitis of small intestine without perforation or abscess without bleeding Presentation: 03/03 12:01 Chief complaint: Patient states: patient reports she ate cherries approx 2 weeks ago, ap3 and immediately started having throat pain, and had a positive throat swab for an unknown bacteria. patient then started having nausea and vomiting upon starting antibiotics. patient reports the nausea and vomiting for approx 2 weeks. Coronavirus screen: At this time, the client does not indicate any symptoms associated with coronavirus-19. Ebola Screen: No symptoms or risks identified at this time. Initial Sepsis Screen: Does the patient meet any 2 criteria? No. Patient's initial sepsis screen is negative. Does the patient have a suspected source of infection? No. Patient's initial sepsis screen is negative. Risk Assessment: Do you want to hurt yourself or someone else? Patient reports no desire to harm self or others. Onset of symptoms was February 17, 2023. 12:01 Method Of Arrival: Ambulatory ap3 12:01 Acuity: KHANH 3 ap3 Triage Assessment: 12:04 General: Appears in no apparent distress. Behavior is calm, cooperative. Pain: Denies ap3 pain. Neuro: Level of Consciousness is awake, alert, obeys commands, Oriented to person, place, time, situation. Cardiovascular: Patient's skin is warm and dry. Respiratory: Airway is patent Respiratory effort is even, unlabored, Respiratory pattern is regular, symmetrical. GI: Reports nausea, vomiting, since 2 weeks. Historical: - Allergies: 12:03 No Known Allergies; ap3 - PMHx: 12:03 CVA; Diabetes - NIDDM; High Cholesterol; Hypertension; UTI; ap3 - Immunization history:: Client reports receiving the 2nd dose of the Covid vaccine. - Social history:: Smoking status: Patient denies any tobacco usage or history of. - Family history:: not pertinent. Screenin:04 [facility] ED Fall Risk Assessment (Adult) History of falling in the last 3 months, ap3 including since admission No falls in past 3 months (0 pts). Abuse screen: Denies threats or abuse. Nutritional screening: No deficits noted. Tuberculosis screening: No symptoms or risk factors identified. Assessment: 12:05 Neuro: Reports weakness. ap3 14:15 Reassessment: Patient and/or family updated on plan of care and expected duration. Pain ap3 level reassessed. Patient is alert, oriented x 3, equal unlabored respirations, skin warm/dry/pink. Patient states feeling better. Patient states symptoms have improved. 15:30 Reassessment: Patient and/or family updated on plan of care and expected duration. Pain ap3 level reassessed. Patient is alert, oriented x 3, equal unlabored respirations, skin warm/dry/pink. 16:25 General: attempted to call report, no answer. nurse will reattempt to call again. ap3 16:40 Reassessment: attempted report. was informed the assigned nurse would return my call. ap3 17:41 General: report given to EARLENE Laird. ap3 Vital Signs: 12:01 BP 99 / 55; Pulse 64; Resp 17; Temp 98.8; Pulse Ox 99% ; Weight 62.6 kg; Height 5 ft. 3 ap3 in. ; Pain 0/10; 16:27 BP 107 / 49; Pulse 70; Pulse Ox 100% on R/A; ap3 12:01 Body Mass Index 24.45 (62.60 kg, 160.02 cm) ap3 12:01 Pain Scale: Adult ap3 ED Course: 11:40 Patient arrived in ED. rg4 11:40 Oskar Hargrove MD is Private Physician. rg4 11:41 Jae Lux MD is Attending Physician. cp3 12:01 Preethi Sandhu, EARLENE is Primary Nurse. ap3 12:03 Triage completed. ap3 12:05 Arm band placed on right wrist. ap3 12:05 Patient has correct armband on for positive identification. Bed in low position. Call ap3 light in reach. Side rails up X 1. Pulse ox on. NIBP on. 12:18 Inserted saline lock: 20 gauge in right antecubital area, using aseptic technique. ap3 Blood collected. 12:18 CBC with Diff Sent. ap3 12:18 CMP Sent. ap3 12:18 Lipase Sent. ap3 12:18 Initial lab(s) drawn, by me, sent to lab. ap3 12:41 CT Abd/Pelvis - Without Contrast In Process Unspecified. EDMS 14:24 Henry Bassett is Hospitalizing Provider. cp3 15:01 No provider procedures requiring assistance completed. Patient admitted, IV remains in ap3 place. 15:02 Provided Education on: medications prior to administration. ap3 17:50 Admitting physician to see patient. ap3 Administered Medications: 12:27 Drug: NS 0.9% IV 1000 ml Route: IV; Rate: 1 bolus; Site: right antecubital; ap3 14:28 Follow up: IV Status: Completed infusion ap3 12:27 Drug: Famotidine IVP 20 mg Route: IVP; Site: right antecubital; ap3 14:28 Follow up: Response: No adverse reaction ap3 12:27 Drug: Ondansetron IVP 4 mg Route: IVP; Site: right antecubital; ap3 14:28 Follow up: Response: No adverse reaction ap3 14:41 Drug: NS 0.9% IV 1000 ml Route: IV; Rate: 1 bolus; Site: right antecubital; ap3 16:18 Follow up: IV Status: Completed infusion ap3 14:41 Drug: Piperacillin-Tazobactam IVPB 2.25 grams Route: IVPB; Infused Over: 60 mins; Site: ap3 right antecubital; 15:12 Follow up: IV Status: Completed infusion ap3 15:15 Drug: metroNIDAZOLE IVPB 500 mg Volume: 100 ml; Route: IVPB; Rate: 200 ml/hr; Infused ap3 Over: 30 mins; Site: right antecubital; 16:18 Follow up: IV Status: Completed infusion ap3 16:18 Drug: NS 0.9% IV 1000 ml Route: IV; Rate: 125 ml/hr; Site: right antecubital; ap3 17:52 Follow up: IV Status: Completed infusion ap3 Medication: 15:02 VIS not applicable for this client. ap3 Outcome: 14:25 Decision to Hospitalize by Provider. cp3 15:01 Condition: good ap3 15:01 Instructed on the need for admit. 17:51 Admitted to Tele accompanied by tech, via wheelchair, room 404, with chart, Report ap3 called to EARLENE Laird 18:03 Patient left the ED. ap3 Signatures: Dispatcher [employer] Jae Jacobson MD MD cp3 Belkis Jose rg4 Preethi Sandhu RN RN ap3
--- NOTE | 2023-03-03 14:25 | EDPHYS ---
Physician Documentation [facility] Name: Marizol Huizar Age: 77 yrs Sex: Female : 1945 Arrival Date: 03/03/2023 Time: 11:39 Bed 18 Private MD: Oskar Hargrove E ED Physician Jae Lux HPI: 03/03 12:23 This 77 yrs old Female presents to ER via Ambulatory with complaints of Nausea. cp3 12:23 Patient is a 77-year-old female with a history of stroke, diabetes, high cholesterol, cp3 hypertension, UTI who presents to the ED after a foodborne related illness several weeks ago which she was diagnosed with a bacterial infection after eating unwashed cherries. Patient has finished her course of antibiotics more than 1 week ago. Patient denies fever, chills, vomiting. The patient's primary complaint today is severe nausea which makes her scared to eat. Patient endorses she has not had any significant solid food for the last 2 weeks and has been eating yogurt twice a day for the last few days but is feeling very weak and endorses that she is having severe nausea with dry heaving and a few episodes of nonbloody vomitus. Patient denies abdominal pain and diarrhea. The patient endorses she has had a 8 pound weight loss in the last 2 weeks and feels dehydrated patient with urination prior to arrival. Historical: - Allergies: 12:03 No Known Allergies; ap3 - PMHx: 12:03 CVA; Diabetes - NIDDM; High Cholesterol; Hypertension; UTI; ap3 - Immunization history:: Client reports receiving the 2nd dose of the Covid vaccine. - Social history:: Smoking status: Patient denies any tobacco usage or history of. - Family history:: not pertinent. ROS: 12:23 Constitutional: Negative for fever, chills, and weight loss. cp3 12:23 Eyes: Negative for injury, pain, redness, and discharge, ENT: Negative for injury, pain, and discharge, Neck: Negative for injury, pain, and swelling, Cardiovascular: Negative for chest pain, palpitations, and edema, Respiratory: Negative for shortness of breath, cough, wheezing, and pleuritic chest pain, Back: Negative for injury and pain, : Negative for injury, bleeding, discharge, and swelling, MS/Extremity: Negative for injury and deformity, Skin: Negative for injury, rash, and discoloration, Neuro: Negative for headache, weakness, numbness, tingling, and seizure, Psych: Negative for depression, anxiety, suicide ideation, homicidal ideation, and hallucinations, Allergy/Immunology: Negative for hives, rash, and allergies, Endocrine: Negative for neck swelling, polydipsia, polyuria, polyphagia, and marked weight changes, Hematologic/Lymphatic: Negative for swollen nodes, abnormal bleeding, and unusual bruising. 12:23 Constitutional: Positive for fatigue, malaise, poor PO intake, weight loss, Generalized weakness. 12:23 Abdomen/GI: Positive for nausea, vomiting. Exam: 12:23 Constitutional: This is a well developed, well nourished patient who is awake, alert, cp3 and in no acute distress. Head/Face: Normocephalic, atraumatic. Eyes: Pupils equal round and reactive to light, extra-ocular motions intact. Lids and lashes normal. Conjunctiva and sclera are non-icteric and not injected. Cornea within normal limits. Periorbital areas with no swelling, redness, or edema. ENT: Nares patent. No nasal discharge, no septal abnormalities noted. Tympanic membranes are normal and external auditory canals are clear. Oropharynx with no redness, swelling, or masses, exudates, or evidence of obstruction, uvula midline. Mucous membranes moist. Neck: Trachea midline, no thyromegaly or masses palpated, and no cervical lymphadenopathy. Supple, full range of motion without nuchal rigidity, or vertebral point tenderness. No Meningismus. Chest/axilla: Normal chest wall appearance and motion. Nontender with no deformity. No lesions are appreciated. Cardiovascular: Regular rate and rhythm with a normal S1 and S2. No gallops, murmurs, or rubs. Normal PMI, no JVD. No pulse deficits. Respiratory: Lungs have equal breath sounds bilaterally, clear to auscultation and percussion. No rales, rhonchi or wheezes noted. No increased work of breathing, no retractions or nasal flaring. Abdomen/GI: Soft, non-tender, with normal bowel sounds. No distension or tympany. No guarding or rebound. No evidence of tenderness throughout. Back: No spinal tenderness. No costovertebral tenderness. Full range of motion. Skin: Warm, dry with normal turgor. Normal color with no rashes, no lesions, and no evidence of cellulitis. MS/ Extremity: Pulses equal, no cyanosis. Neurovascular intact. Full, normal range of motion. Neuro: Awake and alert, GCS 15, oriented to person, place, time, and situation. Cranial nerves II-XII grossly intact. Motor strength 5/5 in all extremities. Sensory grossly intact. Cerebellar exam normal. Normal gait. Psych: Awake, alert, with orientation to person, place and time. Behavior, mood, and affect are within normal limits. Vital Signs: 12:01 BP 99 / 55; Pulse 64; Resp 17; Temp 98.8; Pulse Ox 99% ; Weight 62.6 kg; Height 5 ft. 3 ap3 in. ; Pain 0/10; 16:27 BP 107 / 49; Pulse 70; Pulse Ox 100% on R/A; ap3 12:01 Body Mass Index 24.45 (62.60 kg, 160.02 cm) ap3 12:01 Pain Scale: Adult ap3 MDM: 11:54 Patient medically screened. cp3 12:25 Data reviewed: vital signs, nurses notes. cp3 14:25 Differential diagnosis: Nonspecific abd pain, gastritis, diverticulitis, viral cp3 gastroenteritis, gastroenteritis, Dehydration, acute kidney injury. Data reviewed: lab test result(s), radiologic studies, CT scan. Consideration of Admission/Observation Patient was admitted/placed on observation. Management of patient was discussed with the following: Hospitalist: Dr. Bassett. I considered the following discharge prescriptions or medication management in the emergency department Medications were administered in the Emergency Department. See MAR. Response to treatment: the patient's symptoms have markedly improved after treatment. ED course: Results discussed with patient at bedside patient comfortable with plan of care and admission. Will initiate additional IV fluids and IV antibiotics for acute diverticulitis on CT. 14:29 Care significantly affected by the following chronic conditions: CVA, diabetes, high cp3 cholesterol, hypertension, UTI. 03/03 12:07 Order name: CBC with Diff; Complete Time: 14:04 cp3 03/03 12:07 Order name: CMP; Complete Time: 14:04 cp3 03/03 12:07 Order name: Lipase; Complete Time: 14:04 cp3 03/03 12:07 Order name: Urinalysis w/ reflexes cp3 03/03 12:07 Order name: CT Abd/Pelvis - Without Contrast; Complete Time: 14:04 cp3 03/03 12:07 Order name: EKG; Complete Time: 12:08 cp3 03/03 12:07 Order name: Saline Lock; Complete Time: 12:27 cp3 03/03 12:07 Order name: IV Saline Lock; Complete Time: 12:18 cp3 03/03 12:07 Order name: Labs collected and sent; Complete Time: 12:18 cp3 Administered Medications: 12:27 Drug: NS 0.9% IV 1000 ml Route: IV; Rate: 1 bolus; Site: right antecubital; ap3 14:28 Follow up: IV Status: Completed infusion ap3 12:27 Drug: Famotidine IVP 20 mg Route: IVP; Site: right antecubital; ap3 14:28 Follow up: Response: No adverse reaction ap3 12:27 Drug: Ondansetron IVP 4 mg Route: IVP; Site: right antecubital; ap3 14:28 Follow up: Response: No adverse reaction ap3 14:41 Drug: NS 0.9% IV 1000 ml Route: IV; Rate: 1 bolus; Site: right antecubital; ap3 16:18 Follow up: IV Status: Completed infusion ap3 14:41 Drug: Piperacillin-Tazobactam IVPB 2.25 grams Route: IVPB; Infused Over: 60 mins; Site: ap3 right antecubital; 15:12 Follow up: IV Status: Completed infusion ap3 15:15 Drug: metroNIDAZOLE IVPB 500 mg Volume: 100 ml; Route: IVPB; Rate: 200 ml/hr; Infused ap3 Over: 30 mins; Site: right antecubital; 16:18 Follow up: IV Status: Completed infusion ap3 16:18 Drug: NS 0.9% IV 1000 ml Route: IV; Rate: 125 ml/hr; Site: right antecubital; ap3 17:52 Follow up: IV Status: Completed infusion ap3 Disposition Summary: 03/03/23 14:25 Hospitalization Ordered Hospitalization Status: Inpatient Admission cp3 Provider: Henry Bsasett cp3 Location: Telemetry/[facility] (Inpatient) cp3 Condition: Stable cp3 Problem: new cp3 Symptoms: have worsened cp3 Bed/Room Type: Standard cp3 Room Assignment: 404(03/03/23 16:15) dw Diagnosis - Acute kidney failure, unspecified cp3 - Dehydration cp3 - Diverticulitis of small intestine without perforation or abscess without bleeding cp3 Forms: - Medication Reconciliation Form cp3 - SBAR form cp3 Signatures: Dispatcher [employer] EDMS Dione Navarro RN RN Jae Kessler MD MD cp3 Preethi Sandhu RN RN ap3 Corrections: (The following items were deleted from the chart) 12:06 11:43 Abdomen Acute Series+[id number].[email or web address].BRZ ordered. EDMS EDMS 16:15 14:25 cp3 dw
[2023-03-03] MEDS ORDERED: PIPERACIL/TAZO 2.25 GM VIAL IV ONE (14:43)
[2023-03-03] MEDS ORDERED: NA CHLORIDE 0.9% 100 ML ONE (14:44)
[2023-03-03] MEDS ORDERED: NA CHLORIDE 0.9% 2,000 ML ONE (14:44)
[2023-03-03] MEDS ORDERED: METRONIDAZOLE 500mg IVPB 500 MG/100 ML BAG IV ONE (14:44)
--- NOTE | 2023-03-03 16:13 | P.HP ---
Certification for Inpatient Patient admitted to: Observation With expected LOS: <2 Midnights Practitioner: I am a practitioner with admitting privileges, knowledge of patient current condition, hospital course, and medical plan of care. Services: Services provided to patient in accordance with Admission requirements found in Title 42 Section 412.3 of the Code of Federal Regulations Patient History Date of Service: 03/03/23 Reason for admission: Nausea and vomiting History of Present Illness: 77-year-old woman with a history of diabetes presented to the emergency department due to intractable nausea and vomiting of about 2 weeks duration. Patient feels she developed her symptoms after eating unwashed berries. She denied any fever. She also denies any diarrhea or abdominal pain. She reported constipation. She also reported she developed sore throat days before the nausea and vomiting, went to her PCP Dr. Hargrove who performed a throat swab and started him on antibiotics. She took 2 different antibiotics, took first antibiotics for 4 days, later changed to another antibiotics which she took for 7 more days. Had nausea and vomiting did not respond to the antibiotic but her throat pain resolved. CT abdomen pelvis done in the ED was unremarkable except for sigmoid diverticulosis with some mild diverticulitis. Blood work showed elevated creatinine indicating HOLLIE. Patient was hospitalized for further management. Allergies No Known Allergies Allergy (Unverified 05/11/12 22:10) Home Medications: Metformin HCl [Metformin ER Osmotic] 500 mg PO BID 11/03/14 Escitalopram Oxalate [Lexapro] 10 mg PO DAILY 01/30/18 Lovastatin 40 mg PO BEDTIME 01/30/18 Multivitamin/Iron/Folic Acid [Multi-Day Plus Iron Tablet] 1 tab PO DAILY 01/30/18 Mupirocin Oint [Bactroban 2% Ointment*] 22 gm TP DAILY 01/30/18 Atorvastatin Calcium 40 mg PO BEDTIME 08/03/22 Isosorbide Mononitrate [Isosorbide Mononitrate ER] 30 mg PO DAILY 08/03/22 Aspirin [Aspirin EC 81 MG] 81 mg PO DAILY #30 tab 08/04/22 Cefpodoxime Proxetil 100 mg PO BID #10 tab 08/04/22 Clopidogrel Bisulfate [Plavix] 75 mg PO DAILY #30 tab 08/04/22 - Past Medical/Surgical History Diabetic: Yes -: Overweight -: Lymphedema -: DM -: Hyperlipidemia -: UTI -: CVA -: Anixety - Social History Alcohol use: No CD- Drugs: No Caffeine use: Yes Review of Systems Other: Except as documented, other systems reviewed and negative. Physical Examination - Physical Exam General: Alert, In no apparent distress, Oriented x3 HEENT: Mucous membr. moist/pink Neck: JVD not distended Respiratory: Clear to auscultation bilaterally, Normal air movement Cardiovascular: No edema, Regular rate/rhythm, Normal S1 S2, No murmurs Capillary refill: <2 Seconds Gastrointestinal: Normal bowel sounds, Soft and benign, Non-distended, No tenderness Musculoskeletal: No swelling, No tenderness Integumentary: No rashes, No cyanosis Neurological: Normal speech, Normal strength at 5/5 x4 extr, Cranial nerves 3-12 intact Lymphatics: No axilla or inguinal lymphadenopathy - Studies Laboratory Data (last 24 hrs) 03/03/23 03/03/23 12:13 12:13 WBC 6.30 Hgb 11.1 L Hct 34.3 L Plt Count 257 Sodium 137 Potassium 5.0 BUN 60 H Creatinine 2.54 H Glucose 124 H Total Bilirubin 0.6 AST 11 L ALT 18 Alkaline Phosphatase 70 Lipase 98 H Assessment and Plan - Problems (Diagnosis) (1) Intractable nausea and vomiting Current Visit: Yes Status: Acute (2) Acute diverticulitis Current Visit: Yes Status: Acute (3) Diabetes mellitus Current Visit: No Status: Acute - Plan Place patient under observation on the medical floor. Supportive measures with aggressive IV hydration Monitor renal function IV Cipro and Flagyl for acute diverticulitis Check stool for C. difficile No leukocytosis or fever, no sepsis Monitor and optimize electrolytes. Insulin sliding scale for glucose management Hold home dose metformin. - Advance Directives Does patient have a Living Will: No Does patient have a Durable POA for Healthcare: No
[2023-03-03] MEDS: INSULIN -REGULAR HUMAN 50 UNIT/0.5 ML ML SQ SCH ×2 (18:43→20:48)
[2023-03-03] MEDS ORDERED: ACETAMINOPHEN 325 MG TABLET PO PRN (18:43)
[2023-03-03] MEDS ORDERED: ONDANSETRON 4 MG/2 ML VIAL IV PRN (18:43)
[2023-03-03] MEDS ORDERED: ATORVASTATIN 40 MG TAB PO SCH (21:00)
[2023-03-03] MEDS: HEPARIN 5000 UNIT/ML 1 ML VIAL SQ SCH (21:05)
[2023-03-03] MEDS: METRONIDAZOLE 500mg IVPB 500 MG/100 ML BAG IV SCH (21:38)
[2023-03-03] MEDS: NA CHLORIDE 0.9% 1,000 ML IV SCH (21:41)
[2023-03-03] MEDS: CIPROFLOXACIN 400mg IV 400 MG/200 ML BAG IV SCH (23:21)
[2023-03-04 00:10] VITALS: O2SAT 99
[2023-03-04] MEDS: METRONIDAZOLE 500mg IVPB 500 MG/100 ML BAG IV SCH ×2 (01:05→08:01)
[2023-03-04] MEDS: HEPARIN 5000 UNIT/ML 1 ML VIAL SQ SCH ×2 (01:05→08:00)
[2023-03-04 04:07] VITALS: BMI 24.4
[2023-03-04 04:08] LABS: Absolute Lymphocytes (CBC) 1.3 K/uL (0.7-4.9); Hematocrit 28.6 % (36.0-45.0); Lymphocytes % 26.7 % (15.3-44.8); MCV 89.2 fL (80-100); Platelets 175 thou/uL (152-406)
[2023-03-04 04:28] LABS: Albumin 2.8 g/dL (3.4-5.0); Bilirubin Total 0.5 mg/dL (0.2-1.0); Magnesium 1.4 mg/dL (1.6-2.4); Phosphorus 2.8 mg/dL (2.5-4.9); Potassium 4.9 mEq/L (3.5-5.1); Protein, Total 5.3 g/dL (6.4-8.2)
[2023-03-04] MEDS: INSULIN -REGULAR HUMAN 50 UNIT/0.5 ML ML SQ SCH (07:30)
[2023-03-04] MEDS: CIPROFLOXACIN 400mg IV 400 MG/200 ML BAG IV SCH (08:00)
[2023-03-04] MEDS: NA CHLORIDE 0.9% 1,000 ML IV SCH ×2 (08:01→10:43)
[2023-03-04 08:26] VITALS: BP 115/56; TEMP 97.8
[2023-03-04] MEDS ORDERED: Magnesium Sulfate 2gm IVPB 2 G/50 ML BAG IV ONE (09:00)
--- NOTE | 2023-03-04 11:37 | P.DS ---
Admission Date: 03/03/23 Discharge Date: 03/04/23 Disposition: ROUTINE DISCHARGE Discharge Condition: FAIR Reason for Admission: Nausea and vomiting - Problems (1) Intractable nausea and vomiting Current Visit: Yes Status: Acute (2) Acute diverticulitis Current Visit: Yes Status: Acute (3) Diabetes mellitus Current Visit: No Status: Acute Brief History of Present Illness: 77-year-old woman with a history of diabetes presented to the emergency department due to intractable nausea and vomiting of about 2 weeks duration. Patient feels she developed her symptoms after eating unwashed berries. She denied any fever. She also denies any diarrhea or abdominal pain. She reported constipation. She also reported she developed sore throat days before the nausea and vomiting, went to her PCP Dr. Hargrove who performed a throat swab and started him on antibiotics. She took 2 different antibiotics, took first antibiotics for 4 days, later changed to another antibiotics which she took for 7 more days. Had nausea and vomiting did not respond to the antibiotic but her throat pain resolved. CT abdomen pelvis done in the ED was unremarkable except for sigmoid diverticulosis with some mild diverticulitis. Blood work showed elevated creatinine indicating HOLLIE. Patient was hospitalized for further management. Hospital Course: Patient placed under observation on the medical floor and treated with supportive measures including IV hydration. She was also placed on IV Flagyl and ciprofloxacin for acute diverticulitis. Her renal function significantly improved with IV hydration and on the part to recovery. Patient tolerated diet. She feels she has clinically improved experiencing only mild abdominal discomfort. No nausea or vomiting with meals. Patient was afebrile with no l eukocytosis. She is deemed stable for discharge and prescribed oral ciprofloxacin and Flagyl to continue treatment for acute diverticulitis. She is on lisinopril hydrochlorothiazide which patient has been told to stop taking until she follows up with her PCP. Daughter mentioned patient blood pressure has been borderline low. Vital Signs/Physical Exam: Temp Pulse Resp BP Pulse Ox 97.8 F 51 16 115/56 L 98 03/04/23 08:00 03/04/23 08:00 03/04/23 08:00 03/04/23 08:00 03/04/23 08:00 General: Alert, In no apparent distress, Oriented x3 HEENT: Mucous membr. moist/pink Neck: Supple, JVD not distended Respiratory: Clear to auscultation bilaterally, Normal air movement Cardiovascular: No edema, Regular rate/rhythm, Normal S1 S2 Gastrointestinal: Normal bowel sounds, Soft and benign, Non-distended, No tenderness Musculoskeletal: No swelling, No tenderness Integumentary: No rashes, No cyanosis Neurological: Normal speech, Normal strength at 5/5 x4 extr Laboratory Data at Discharge: WBC 4.90 thou/uL (4.3-10.9) 03/04/23 03:26 Hgb 9.2 g/dL (12.0-15.0) L D 03/04/23 03:26 Hct 28.6 % (36.0-45.0) L 03/04/23 03:26 Plt Count 175 thou/uL (152-406) D 03/04/23 03:26 Sodium 141 mEq/L (136-145) 03/04/23 03:26 Potassium 4.9 mEq/L (3.5-5.1) 03/04/23 03:26 BUN 46 mg/dL (7-18) H 03/04/23 03:26 Creatinine 1.86 mg/dL (0.55-1.02) H 03/04/23 03:26 Glucose 88 mg/dL (74-106) 03/04/23 03:26 Phosphorus 2.8 mg/dL (2.5-4.9) 03/04/23 03:26 Magnesium 1.4 mg/dL (1.6-2.4) L 03/04/23 03:26 Total Bilirubin 0.5 mg/dL (0.2-1.0) 03/04/23 03:26 AST 10 U/L (15-37) L 03/04/23 03:26 ALT 12 U/L (13-56) L 03/04/23 03:26 Alkaline Phosphatase 57 U/L (45-117) 03/04/23 03:26 Lipase 98 U/L (13-75) H 03/03/23 12:13 Home Medications: Metformin HCl [Metformin ER Osmotic] 500 mg PO BID 11/03/14 Escitalopram Oxalate [Lexapro] 10 mg PO DAILY 01/30/18 Multivitamin/Iron/Folic Acid [Multi-Day Plus Iron Tablet] 1 tab PO DAILY 01/30/18 Atorvastatin Calcium 40 mg PO BEDTIME 08/03/22 Isosorbide Mononitrate [Isosorbide Mononitrate ER] 30 mg PO DAILY 08/03/22 Aspirin [Aspirin EC 81 MG] 81 mg PO DAILY #30 tab 08/04/22 Clopidogrel Bisulfate [Plavix*] 75 mg PO DAILY #30 tab 08/04/22 Ciprofloxacin HCl [Cipro] 500 mg PO BID #10 tab 03/04/23 Metronidazole 500 mg PO TID #15 tab 03/04/23 Polyethylene Glycol 3350 [Miralax] 17 gm PO BID PRN #30 packet 03/04/23 Sennosides [Senokot] 17.2 mg PO BID #120 tab 03/04/23 New Medications: Ciprofloxacin HCl [Cipro] 500 mg PO BID #10 tab Metronidazole 500 mg PO TID #15 tab Polyethylene Glycol 3350 [Miralax] 17 gm PO BID PRN #30 packet PRN Reason: Constipation Sennosides [Senokot] 17.2 mg PO BID #120 tab Physician Discharge Instructions: FOLLOW UP WITH PCP 3-5 DAYS FOR POST HOSPITAL EVALUATION, IF SYMPTOMS WORSEN/NO IMPROVEMENT, RETURN TO ER. Do not take the metformin until 48 hours from the time [address] abdomen with contrast was done. Do not take lisinopril-hydrochlorothiazide until you follow up with your PCP. Let your PCP know your BP has been running borderline low. PCP may stop your antihypertensives all together an put on low dose lisinopril for its renal protective effect because you have diabetes. Progress from soft diet until you are able to tolerate solid diet. Followup: Oskar Hargrove MD [Primary Care Provider] - Time spent managing pt's care (in minutes): 28
[2023-03-04] MEDS ORDERED: CLOPIDOGREL 75 MG TABLET PO SCH (12:00)
[2023-03-04] MEDS ORDERED: ASPIRIN EC 81 MG TAB PO SCH (12:00)
[2023-03-04] MEDS ORDERED: ATORVASTATIN 40 MG TAB PO SCH (21:00)
[2023-03-05] MEDS ORDERED: ISOSORBIDE MONO SR 30 MG TAB PO SCH (09:00)
== END 2023-03-04 12:20 | disposition home or self-care (01) ==
LOC: ER 11:39 → ERHOLD 16:05 → 4TH 17:48
PROVIDERS: ADMIT Internal Medicine; ATTEND Internal Medicine
DX: K57.92 Diverticulitis of intestine, part unspecified, without perforation or abscess without bleeding (principal); E11.9 Type 2 diabetes mellitus without complications
CPT/HCPCS: 96365; 96367; 96361; 85025 ×2; 36415; 83735; 84100; 82947 ×2; 83690; 80053 ×2; 74176; 97116; 97162; 97530; 94760 ×2; 96375; 99285; J1644 ×3; J3475; J2543; J2405; J0744 ×2; J7030 ×4

== ENCOUNTER 2024-03-13 17:46 | Emergency (ER) | payer OTHER ==
--- NOTE | 2024-03-13 19:26 | RAD REPORT ---
EXAM DESCRIPTION: RAD - Ankle Right 3 View - 03/13/2024 7:19 pm CLINICAL HISTORY: PAIN COMPARISON: <Comparisons> FINDINGS: Moderate lateral soft tissue swelling is evident. No acute fracture or dislocation seen. L arge plantar calcaneal spur.
--- NOTE | 2024-03-13 19:26 | RAD REPORT ---
EXAM DESCRIPTION: RAD - Foot Right 3 View - 03/13/2024 7:19 pm CLINICAL HISTORY: PAIN COMPARISON: <Comparisons> FINDINGS: Mild soft tissue swelling is seen medially. No acute fracture or dislocation seen. Large p lantar calcaneal spur.
--- NOTE | 2024-03-13 19:31 | EDPHYS ---
Physician Documentation [facility] Name: Marizol Huizar Age: 78 yrs Sex: Female : 1945 Arrival Date: 03/13/2024 Time: 17:46 Bed IW1 Private MD: ED Physician Giles Velasco HPI: 03/13 20:17 This 78 yrs old Female presents to ER via Ambulatory with complaints of Fall Injury, kb Leg Pain. 20:17 Pt is a 78 year old female who presents for pain and swelling to right foot and ankle kb that started 4 days ago after a fall. Pt states [place] in [place], started vomiting and had a syncopal episode where she landed with her foot beneath her. States she has felt fine since then, just came in to get her ankle evaluated to make sure it wasn't broken. . Historical: - Allergies: 18:22 No Known Allergies; ph - PMHx: 18:22 CVA; Diabetes - NIDDM; High Cholesterol; Hypertension; UTI; ph - Immunization history:: Adult Immunizations unknown. - Infectious Disease History:: Denies. - Social history:: Smoking status: Patient denies any tobacco usage or history of. ROS: 20:16 Constitutional: As per HPI kb Exam: 20:16 Constitutional: This is a well developed, well nourished patient who is awake, alert, kb and in no acute distress. Head/Face: Normocephalic, atraumatic. ENT: Moist Mucous membranes Cardiovascular: Regular rate Respiratory: Respirations even and unlabored. No increased work of breathing. Talking in full sentences Abdomen/GI: Soft, non-tender. No distention Skin: Warm, dry with normal turgor. Normal color. Neuro: Awake and alert, GCS 15, oriented to person, place, time, and situation. Moves all extremities. Normal gait. 20:16 Musculoskeletal/extremity: Extremities: grossly normal except: noted in the right foot and right ankle: ecchymosis, pain, swelling, ROM: intact in all extremities, Circulation is intact in all extremities. Sensation intact. Weight bearing: able to fully bear weight, Vital Signs: 18:22 BP 128 / 67; Pulse 61; Resp 18; Temp 97.5; Pulse Ox 100% on R/A; Weight 68.04 kg; ph Height 5 ft. 4 in. ; 18:22 Body Mass Index 25.75 (68.04 kg, 162.56 cm) ph MDM: 17:57 Patient medically screened. kb 20:22 Differential diagnosis: fracture, sprain. Data reviewed: vital signs, nurses notes. kb Counseling: I had a detailed discussion with the patient and/or guardian regarding the historical points, exam findings, and any diagnostic results supporting the discharge/admit diagnosis, radiology results, the need for outpatient follow up, a orthopedic surgeon, to return to the emergency department if symptoms worsen or persist or if there are any questions or concerns that arise at home. 03/13 18:23 Order name: Ankle Right 3 View XRAY; Complete Time: 19:30 kb 03/13 18:23 Order name: Foot Right 3 View XRAY; Complete Time: 19:30 kb Administered Medications: No medications were administered Disposition Summary: 03/13/24 19:31 Discharge Ordered Notes: Location: Home kb Condition: Stable kb Diagnosis - Sprain of ankle kb Followup: kb - With: Emergency Department - When: As needed - Reason: Worsening of condition Followup: kb - With: Private Physician - When: 2 - 3 days - Reason: Recheck today's complaints, Continuance of care, Re-evaluation by your physician Discharge Instructions: - Discharge Summary Sheet kb - Ankle Sprain, [id number] kb Forms: - Medication Reconciliation Form kb - Antibiotic Education kb - Prescription Opioid Use kb - Patient Portal Instructions kb - Leadership Thank You Letter kb Prescriptions: - Diclofenac Sodium 75 mg Oral tablet, delayed release (enteric coated) - take 1 tablet ORAL route 2 times per day As needed; 30 tablet; Refills: 0, kb Product Selection Permitted Signatures: Dispatcher [employer] EDMargie Cano, TAX MANAGER-C JUSTICE-Mar Botello, RN RN ph
--- NOTE | 2024-03-13 19:31 | ER ---
Nurse's Notes [facility]vid Name: Marizol Huizar Age: 78 yrs Sex: Female : 1945 Arrival Date: 03/13/2024 Time: 17:46 Bed IW1 Private MD: Diagnosis: Sprain of ankle Presentation: 03/13 18:20 Chief complaint: Patient states: Fell on Monday, now having pain to R ankle. ph Coronavirus screen: Vaccine status: Patient reports receiving the 2nd dose of the covid vaccine. Ebola Screen: No symptoms or risks identified at this time. Initial Sepsis Screen: Does the patient meet any 2 criteria? No. Patient's initial sepsis screen is negative. Does the patient have a suspected source of infection? No. Patient's initial sepsis screen is negative. Risk Assessment: Do you want to hurt yourself or someone else? Patient reports no desire to harm self or others. Onset of symptoms was March 13, 2024. 18:20 Method Of Arrival: Ambulatory 18:20 Acuity: KHANH 4 ph Triage Assessment: 18:26 General: Appears in no apparent distress. comfortable, Behavior is calm, cooperative. ph Pain: Complains of pain in right ankle. Historical: - Allergies: 18:22 No Known Allergies; ph - PMHx: 18:22 CVA; Diabetes - NIDDM; High Cholesterol; Hypertension; UTI; ph - Immunization history:: Adult Immunizations unknown. - Infectious Disease History:: Denies. - Social history:: Smoking status: Patient denies any tobacco usage or history of. Screenin:00 [facility] ED Fall Risk Assessment (Adult) History of falling in the last 3 months, vc1 including since admission Yes- physiologic fall (2 pts) Confusion or Disorientation No (0 pts) Intoxicated or Sedated No (0 pts) Impaired Gait Yes (1 pt) Mobility Assist Device Used No (0 pt) Altered Elimination No (0 pt) Score/Fall Risk Level 3 or more points = High Risk Oriented to surroundings, Maintained a safe environment, Educated pt \T\ family on fall prevention, incl call for assistance when getting out of bed. Abuse screen: Denies threats or abuse. Nutritional screening: No deficits noted. Tuberculosis screening: No symptoms or risk factors identified. Vital Signs: 18:22 BP 128 / 67; Pulse 61; Resp 18; Temp 97.5; Pulse Ox 100% on R/A; Weight 68.04 kg; ph Height 5 ft. 4 in. ; 18:22 Body Mass Index 25.75 (68.04 kg, 162.56 cm) ph ED Course: 17:50 Patient arrived in ED. im 17:56 Margie Weber FNP-C is [facility]. kb 17:56 Giles Velasco MD is Attending Physician. kb 18:22 Triage completed. ph 18:22 Arm band placed on Patient placed in waiting room, Patient notified of wait time. ph 19:21 Ankle Right 3 View XRAY In Process Unspecified. EDMS 19:21 Foot Right 3 View XRAY In Process Unspecified. EDMS 19:52 No provider procedures requiring assistance completed. Patient did not have IV access vc1 during this emergency room visit. 19:56 seen from [facility]. Provided Education on: fall safety. vc1 Administered Medications: No medications were administered Medication: 19:54 VIS not applicable for this client. vc1 Outcome: 19:31 Discharge ordered by . kb 19:52 Discharged to home via wheelchair, with significant other, vc1 19:52 Condition: good 19:52 Discharge instructions given to patient, Instructed on discharge instructions, follow up and referral plans. medication usage, Demonstrated understanding of instructions, follow-up care, medications, Prescriptions given X 1, 19:57 Patient left the ED. vc1 Signatures: Dispatcher [employer] EDTN Margie Weber FNP-C FNP-Ckb Hall, Patricia, RN RN Chandni Robbins RN RN vc1 Kiarra Arauz im
[2024-03-13 20:02] VITALS: BP 128/67; TEMP 97.5; O2SAT 100
== END 2024-03-13 19:57 | disposition home or self-care (01) ==
LOC: ER 17:46
DX: S93.401A Sprain of unspecified ligament of right ankle, initial encounter (principal)